=== PATIENT | male | born 1995 | race Caucasian/White ===

== ENCOUNTER 2023-02-13 14:12 | Inpatient (IN) ==
[2023-02-13] MEDS ORDERED: SODIUM CHLORIDE 0.65% NA SOLN 45 ML (OCEAN) PRN (14:54)
[2023-02-13] MEDS ORDERED: ACETAMINOPHEN 325 MG TAB PO PRN (14:54)
[2023-02-13] MEDS ORDERED: hydrOXYzine HCl 25 MG TAB PO PRN (14:54)
[2023-02-13] MEDS ORDERED: ALUMINUM/MAGNESIUM SUSP 30 ML UDC PO PRN (14:54)
[2023-02-13] MEDS ORDERED: MAGNESIUM HYDROXIDE SUSP 30 ML UDC PO PRN (14:54)
[2023-02-13 17:13] LABS: Vitamin D, 25 Hydrox 8.5 ng/ml (30-100)
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
[2023-02-14] MEDS: DULoxetine HCL 30 MG CAP PO SCH (15:27)
[2023-02-14] MEDS: ERGOCALCIFEROL 50,000 UNITS 1250 MCG CAP PO SCH (15:27)
[2023-02-15] MEDS: DULoxetine HCL 30 MG CAP PO SCH (08:34)
--- NOTE | 2023-02-15 11:21 | Psychiatric Progress Note ---
Date of Service February 15, 2023 Impression / Recommendations Impression 27 y/o M with history of depression and chronic suicidal thoughts with recent worsening of suicidality. The more chronic suicidal thoughts have an obsessive quality. They alin trash and mail in their apartment. A current stressor is an impending court date for an unpaid $6,000 credit card balance. They had a failed trial of escitalopram at an unknown dose for 6 months and denies any other medication trials. They didn't find psychotherapy at that same time helpful but is willing to try again. 02/14/2023: Pt reports small mood improvement, which they and I both attribute to being in a safe, structured environment. "Slept better" last night. Reports no new or worse symptoms. Has been participating well in the milieu and groups. Tolerating duloxetine 30 mg started yesterday with 2nd dose this morning with no evidence of adverse effects. They would like to be "fairly aggressive" in titrating to target of 60 mg daily. 02/14/2023: I suspect an SNRI might be more efficacious than an SNRI and discussed a trial of duloxetine with pt, including review of side effects both common (GI, headaches) and uncommon (elevated BP, marked diaphoresis) as well as unpleasant symptoms often seen with abrupt discontinuation. Given the poor sleep and pt's body habitus, I think a sleep evaluation following discharge would be indicated. (1) Major depressive disorder, recurrent, severe without psychotic features: (2) Hoarding behavior: (3) Vitamin D deficiency: Plan 02/15/2023: * continue duloxetine 30 mg daily - anticipate increase to 60 mg soon if tolerated. * continue ergocalciferol 1.25 mg twice a week for 8 weeks, then cholecalciferol 5,000 IU daily for maintenance. Repeat 25-OH vitamin D level after 1 month on maintenance regimen. 02/14/2023: The patient was admitted to the [facility] ([facility] mental health unit) on q15 min checks (behavioral with suicide precautions) for safety. The patient will participate in group, recreational, and milieu therapies and will be offered additional individual and family sessions as clinically appropriate. * duloxetine 30 mg daily - anticipate increase to 60 mg in 2 days if tolerated. * ergocalciferol 1.25 mg twice a week for 8 weeks, then cholecalciferol 5,000 IU daily for maintenance. Repeat 25-OH vitamin D level after 1 month on maintenance regimen. * recommend sleep evaluation following discharge. Inventory Assets Strengths: supportive relationships, has local supports,voluntary, good insight, intelligent employed, Needs: safety and stabilization, medication adjustment, additional coping skills, increased outpatient services Suicide Risk Level Suicide Risk Level: High-Moderate (q15 min suicide checks) Suicide Risk Level Comments: intrusive, repetitive suicidal thoughts with a recent plan of high potential lethality (but to the means for which he does not have access in the hospital) Risk Factors Assessment Male: Yes : Yes Do You Have Access To A Gun?: No (Gave firearms to mother) Mental Health Diagnoses: Yes Previous Attempt: No Family History of Suicide: No Previous Psychiatric Hospitalization: No Protective Factors Assessment Employed: Yes Stable Relationships: Yes Supportive Family: Yes (mother, but not stepfather) Interval History Identifying Information SWETHA COMER is a 27-year-old M who currently lives in an apartment in [facility], has a history of depression, and was admitted on 02/13/23 14:12 on a 201 voluntary commitment for suicidal thoughts. Chief Complaint "My mood is a little bit better". Review of Systems Sleep Information Total Hours of Sleep: 6 Meal Information Percent Meal Consumed - Breakfast: 100 Percent Meal Consumed - Lunch: 100 Percent Meal Consumed - Dinner: 100 Subjective Subjective Patient was seen & assessed and interval progress reviewed in a multidisciplinary team meeting with the treatment team. For details, see the "Impression" section below. Physical Exam Psychiatric Orientation: alert, oriented to person, oriented to place, oriented to time and cooperative Apperance: appropriately dressed, appropriately groomed and appeared stated age Eye Contact: + fair eye contact Motor Behavior: + psychomotor retardation Speech: normal rate/rhythm/volume of speech Affect: + constricted affect Mood: + depressed mood Thought Process: clear/coherent thought process Thought Content: + obsessions and + cognitive distortions Suicidal Thoughts: denies suicidal plan and denies suicidal intent; + reports suicidal thoughts Homicidal Thoughts: denies homicidal thoughts Hallucinations: no auditory hallucinations and no visual hallucinations Cognition: recent memory grossly intact, remote memory grossly intact, attention grossly intact and language grossly intact Estimated Intelligence: average estimated intelligence Insight: + fair insight Judgment: + fair judgement Vital Signs (Past 24 Hours) Last Vital Signs Temp 36.6 C 02/15/23 06:35 Pulse 125 H 02/15/23 06:36 Resp 16 02/15/23 06:35 BP 124/70 02/15/23 06:36 Results & Data ([facility]) Current Inpatient Medications Current Inpatient Medications: Current Inpatient Medications Acetaminophen (Acetaminophen 325 Mg Tab) 650 mg PO Q4H PRN PRN Reason: Headache or Minor Fever Stop: 03/15/23 14:53 Last Admin: 02/14/23 11:30 Dose: 650 mg Al Hydrox/Mg Hydrox/Simethicone (Aluminum/Magnesium Susp 30 Ml Udc) 30 ml PO Q4H PRN PRN Reason: GI Upset Stop: 03/15/23 14:53 Duloxetine HCl (Duloxetine Hcl 30 Mg Cap) 30 mg PO QAM MGAGI Stop: 03/16/23 14:44 Last Admin: 02/15/23 08:34 Dose: 30 mg Ergocalciferol (Ergocalciferol 50,000 Units 1250 Mcg Cap) 50,000 units PO SuTh@0900 MAGGI Stop: 03/16/23 14:44 Last Admin: 02/14/23 15:27 Dose: 50,000 units Hydroxyzine HCl (Hydroxyzine Hcl 25 Mg Tab) 50 mg PO HSZ PRN PRN Reason: Insomnia Stop: 03/15/23 14:53 Hydroxyzine HCl (Hydroxyzine Hcl 25 Mg Tab) 25 mg PO Q4H PRN PRN Reason: Anxiety Stop: 03/15/23 14:53 Magnesium Hydroxide (Magnesium Hydroxide Susp 30 Ml Udc) 30 ml PO DAILY PRN PRN Reason: Constipation Stop: 03/15/23 14:53 Sodium Chloride (Sodium Chloride 0.65% Na Soln 45 Ml ([place])) 1 - 2 sprays NA PRN PRN PRN Reason: Nasal Dryness/Congestion Stop: 03/15/23 14:53 Mental Health & Subst Abuse Tx Psychiatrist Name of Psychiatrist: Rainer Joseph PA-C Psychiatrist's Date Of Appointment With Psychiatric Provider: 02/28/23 Time of Appointment with Psychiatrist: 10:00 AM Psychiatric Appointment Comment: [address] [place] [address] Therapist Name of Therapist: Munira Dalton Therapist's Time of Therapist Appointment: Telehealth Therapy Appointment Comment: Please call to establish therapy services. Post Discharge Appointments Primary Care Physician Name Of Family Doctor/PCP: [facility] - David Castro PA-C Primary Care Date of Future Appointment with PCP: 02/26/23 Time of Appointment with PCP: 10:30 AM Provider Appointment Comment: [address] [place] [address], [place] [id number] Juvenile Corrections Officer Name of Juvenile Corrections Officer: STALIN Crisis Peer Support Phone Number of Juvenile Corrections Officer: [phone] Juvenile Corrections Officer Appointment Comment: A crisis peer will follow-up with you directly.
[2023-02-16] MEDS: DULoxetine HCL 30 MG CAP PO SCH (08:33)
--- NOTE | 2023-02-16 09:00 | Psychiatric Progress Note ---
Date of Service February 16, 2023 Impression / Recommendations Impression 27 y/o who identifies as non-binary individual with history of depression and chronic suicidal thoughts with recent worsening of suicidality. The more chronic suicidal thoughts have an obsessive quality. They alin trash and mail in their apartment. A current stressor is an impending court date for an unpaid $6,000 credit card balance. 02/16/2023: Ongoing depression and anxiety with SI. Reviewed interim progress per Dr. Gregory's notes. Given ongoing GI symptoms with duloxetine will not increase dose yet. Discussed option to consider augmentation with clonidine which they will consider. Provided with Y-BOCS screening to clarify possible role of OCD. (1) Major depressive disorder, recurrent, severe without psychotic features: (2) Hoarding behavior: (3) Vitamin D deficiency: Plan 02/16/2023: Continue current medications and tx plan. 02/15/2023: * continue duloxetine 30 mg daily - anticipate increase to 60 mg soon if tolerated. * continue ergocalciferol 1.25 mg twice a week for 8 weeks, then cholecalciferol 5,000 IU daily for maintenance. Repeat 25-OH vitamin D level after 1 month on maintenance regimen. 02/14/2023: The patient was admitted to the [facility] ([facility] mental health unit) on q15 min checks (behavioral with suicide precautions) for safety. The patient will participate in group, recreational, and milieu therapies and will be o ffered additional individual and family sessions as clinically appropriate. * duloxetine 30 mg daily - anticipate increase to 60 mg in 2 days if tolerated. * ergocalciferol 1.25 mg twice a week for 8 weeks, then cholecalciferol 5,000 IU daily for maintenance. Repeat 25-OH vitamin D level after 1 month on maintenance regimen. * recommend sleep evaluation following discharge. Inventory Assets Strengths: supportive relationships, has local supports,voluntary, good insight, intelligent employed, Needs: safety and stabilization, medication adjustment, additional coping skills, increased outpatient services Suicide Risk Level Suicide Risk Level: High-Moderate (q15 min suicide checks) (severe depression and SI with plan prior to admission but feels safe in the hospital and agrees to let nursing know if they need further support or feel unable to remain safe) Risk Factors Assessment Male: Yes : Yes Do You Have Access To A Gun?: No (Gave firearms to mother) Mental Health Diagnoses: Yes Previous Attempt: No Family History of Suicide: No Previous Psychiatric Hospitalization: No Protective Factors Assessment Employed: Yes Stable Relationships: Yes Supportive Family: Yes (mother, but not stepfather) Interval History Identifying Information SWETHA COMER is a 27-year-old non-binary individual who currently lives in an apartment in [place] alone, has a history of depression, and was admitted on 02/13/23 14:12 on a 201 voluntary commitment for suicidal thoughts. Chief Complaint "I'm pretty queasy". Review of Systems Sleep Information Total Hours of Sleep: 7 Meal Information Percent Meal Consumed - Breakfast: 100 Percent Meal Consumed - Lunch: 75 Percent Meal Consumed - Dinner: 80 Subjective Subjective Patient was seen & assessed and interval progress reviewed with treatment team nursing and social work. Attending groups. Since starting duloxetine having some "queasiness and decreased appetite". Struggles to fall asleep. Still with in termittent SI but feels safe in the hospital. Reviewed ADHD self-report, not convincing for ADHD and symptoms only started in last few years as depression and anxiety worsened. Discussed option to consider clonidine which can help with anxiety and ADHD symptoms, they'll consider this. Discussed option to try Vistaril tonight to help with anxious thoughts and sleep onset insomnia. Physical Exam Psychiatric Orientation: alert and oriented x 3 Apperance: appropriately dressed, appropriately groomed and appeared stated age Eye Contact: + fair eye contact Motor Behavior: + psychomotor retardation Speech: normal rate/rhythm/volume of speech Affect: + constricted affect Mood: + depressed mood Thought Process: clear/coherent thought process Thought Content: + cognitive distortions and reality based without delusions Suicidal Thoughts: denies suicidal plan (none for in the hospital, thoughts of shooting or jumping outside hospital) and denies suicidal intent; + reports suicidal thoughts Homicidal Thoughts: denies homicidal thoughts Hallucinations: no auditory hallucinations and no visual hallucinations Cognition: recent memory grossly intact, remote memory grossly intact, attention grossly intact and language grossly intact Estimated Intelligence: average estimated intelligence Insight: + fair insight Judgment: + limited judgement Vital Signs (Past 24 Hours) Last Vital Signs Temp 37.2 C 02/16/23 06:00 Pulse 90 02/16/23 06:00 Resp 18 02/16/23 06:00 BP 118/69 02/16/23 06:42 Pulse Ox 98 02/16/23 06:00 O2 Del Method Room Air 02/16/23 06:00 Results & Data ([facility]) Current Inpatient Medications Current Inpatient Medications: Current Inpatient Medications Acetaminophen (Acetaminophen 325 Mg Tab) 650 mg PO Q4H PRN PRN Reason: Headache or Minor Fever Stop: 03/15/23 14:53 Last Admin: 02/14/23 11:30 Dose: 650 mg Al Hydrox/Mg Hydrox/Simethicone (Aluminum/Magnesium Susp 30 Ml Udc) 30 ml PO Q4H PRN PRN Reason: GI Upset Stop: 03/15/23 14:53 Duloxetine HCl (Duloxetine Hcl 30 Mg Cap) 30 mg PO QAM [facility] Stop: 03/16/23 14:44 Last Admin: 02/16/23 08:33 Dose: 30 mg Ergocalciferol (Ergocalciferol 50,000 Units 1250 Mcg Cap) 50,000 units PO SuTh@0900 [facility] Stop: 03/16/23 14:44 Last Admin: 02/14/23 15:27 Dose: 50,000 units Hydroxyzine HCl (Hydroxyzine Hcl 25 Mg Tab) 50 mg PO HSZ PRN PRN Reason: Insomnia Stop: 03/15/23 14:53 Hydroxyzine HCl (Hydroxyzine Hcl 25 Mg Tab) 25 mg PO Q4H PRN PRN Reason: Anxiety Stop: 03/15/23 14:53 Magnesium Hydroxide (Magnesium Hydroxide Susp 30 Ml Udc) 30 ml PO DAILY PRN PRN Reason: Constipation Stop: 03/15/23 14:53 Sodium Chloride (Sodium Chloride 0.65% Na Soln 45 Ml ([place])) 1 - 2 sprays NA PRN PRN PRN Reason: Nasal Dryness/Congestion Stop: 03/15/23 14:53 Mental Health & Subst Abuse Tx Psychiatrist Name of Psychiatrist: Rainer Joseph PA-C Psychiatrist's Date Of Appointment With Psychiatric Provider: 02/28/23 Time of Appointment with Psychiatrist: 10:00 AM Psychiatric Appointment Comment: [address] [place] [address] Therapist Name of Therapist: Munira Dalton Therapist's Time of Therapist Appointment: Telehealth Therapy Appointment Comment: Please call to establish therapy services. Post Discharge Appointments Primary Care Physician Name Of Family Doctor/PCP: [facility] - David Castro PA-C Primary Care Date of Future Appointment with PCP: 02/26/23 Time of Appointment with PCP: 10:30 AM Provider Appointment Comment: [place] [id number] Continuity Editor Name of Continuity Editor: STALIN Crisis Peer Support Phone Number of Continuity Editor: [phone] Continuity Editor Appointment Comment: A crisis peer will follow-up with you directly.
[2023-02-16] MEDS: hydrOXYzine HCl 25 MG TAB PO PRN (22:42)
[2023-02-17] MEDS: ERGOCALCIFEROL 50,000 UNITS 1250 MCG CAP PO SCH (08:30)
[2023-02-17] MEDS: DULoxetine HCL 30 MG CAP PO SCH (08:31)
--- NOTE | 2023-02-17 09:11 | Psychiatric Progress Note ---
Date of Service February 17, 2023 Impression / Recommendations Impression 27 y/o who identifies as non-binary individual with history of depression and chronic suicidal thoughts with recent worsening of suicidality. The more chronic suicidal thoughts have an obsessive quality. They alin trash and mail in their apartment. A current stressor is an impending court date for an unpaid $6,000 credit card balance. 02/17/2023: Ongoing depression, anxiety and tearfulness in considering what it will be like to return to their apartment after leaving the hospital. Shame related to items that accumulated in the apartment due to severity of current depressive episode. They would like to start and consented to clonidine for off- label use for anxiety and concentration and for potential benefit with sleep. Discussed medication treatment options in detail. Discussed risks, benefits and alternatives. Reviewed side effects including but not limited to: low BP, syncope, recommendation to change positions slowly. (1) Major depressive disorder, recurrent, severe without psychotic features: (2) JEFFREY (generalized anxiety disorder): (3) Hoarding behavior: (4) Vitamin D deficiency: Plan 02/17/2023: Start clonidine 0.1mg HS, continue duloxetine 30mg daily. 02/16/2023: Continue current medications and tx plan. 02/15/2023: * continue duloxetine 30 mg daily - anticipate increase to 60 mg soon if tolerated. * continue ergocalciferol 1.25 mg twice a week for 8 weeks, then cholecalciferol 5,000 IU daily for maintenance. Repeat 25-OH vitamin D level after 1 month on maintenance regimen. 02/14/2023: The patient was admitted to the [facility] ([facility] mental health unit) on q15 min checks (behavioral with suicide precautions) for safety. The patient will participate in group, recreational, and milieu therapies and will be offer ed additional individual and family sessions as clinically appropriate. * duloxetine 30 mg daily - anticipate increase to 60 mg in 2 days if tolerated. * ergocalciferol 1.25 mg twice a week for 8 weeks, then cholecalciferol 5,000 IU daily for maintenance. Repeat 25-OH vitamin D level after 1 month on maintenance regimen. * recommend sleep evaluation following discharge. Inventory Assets Strengths: supportive relationships, has local supports,voluntary, good insight, intelligent employed, Needs: safety and stabilization, medication adjustment, additional coping skills, increased outpatient services Suicide Risk Level Suicide Risk Level: High-Moderate (q15 min suicide checks) (severe depression and SI with plan prior to admission but feels safe in the hospital and agrees to let nursing know if they need further support or feel unable to remain safe) Suicide Risk Level Comments: intrusive, repetitive suicidal thoughts with a recent plan of high potential lethality (but to the means for which he does not have access in the hospital) Risk Factors Assessment Male: Yes : Yes Do You Have Access To A Gun?: No (Gave firearms to mother) Mental Health Diagnoses: Yes Previous Attempt: No Family History of Suicide: No Previous Psychiatric Hospitalization: No Protective Factors Assessment Employed: Yes Stable Relationships: Yes Supportive Family: Yes (mother, but not stepfather) Interval History Identifying Information SWETHA COMER is a 27-year-old non-binary individual who currently lives in an apartment in [facility], has a history of depression, and was admitted on 02/13/23 14:12 on a 201 voluntary commitment for suicidal thoughts. Chief Complaint "I'm doing ok". Review of Systems Sleep Information Total Hours of Sleep: 6.75 Sleep Comments: Received Vistaril for sleep Meal Information Percent Meal Consumed - Breakfast: 100 Percent Meal Consumed - Lunch: 80 Percent Meal Consumed - Dinner: 100 Subjective Subjective Patient was seen & assessed and interval progress reviewed with treatment team nursing and social work. Took an afternoon nap. More social in the evening, playing a game with peers. Attended community meeting. Got a dose of Maalox yesterday for nausea which helped. Took prn Vistaril for help falling asleep last night which helped with ruminative anxious thoughts but not with falling asleep. Feels their mood is improving a bit here but tearful when discussing fears about returning to their apartment and losing all the progress they've started to make. Discussed the stress and shame they feel from letting garbage pile up in the apartment and that they feel it is a moral failing that they haven't been able to keep up with all the things they try to do each day. Processed how depression can impact motivation, energy, concentration and likely played a major role in this. They do not feel that the items have sentimental value or w ill be difficult to part with just that the process of cleaning up will be overwhelming. Discussed ongoing major stressor of the upcoming financial court hearing and has not yet disclosed this to anyone else for support outside of the hospital. Less GI symptoms today. They are interested in trying clonidine tonight. Physical Exam Psychiatric Orientation: alert and oriented x 3 Apperance: appropriately dressed, appropriately groomed and appeared stated age Eye Contact: + fair eye contact Motor Behavior: + psychomotor retardation Speech: normal rate/rhythm/volume of speech Affect: + depressed affect, + anxious affect and + tearful affect Mood: + depressed mood and + anxious mood Thought Process: clear/coherent thought process Thought Content: + cognitive distortions and reality based without delusions Suicidal Thoughts: denies suicidal plan (none for in the hospital, thoughts of s hooting or jumping outside hospital) and denies suicidal intent; + reports suicidal thoughts Homicidal Thoughts: denies homicidal thoughts Hallucinations: no auditory hallucinations and no visual hallucinations Cognition: recent memory grossly intact, remote memory grossly intact, attention grossly intact and language grossly intact Estimated Intelligence: average estimated intelligence Insight: + fair insight Judgment: + limited judgement Vital Signs (Past 24 Hours) Last Vital Signs Temp 36.7 C 02/17/23 06:00 Pulse 96 H 02/17/23 06:00 Resp 20 02/17/23 06:00 BP 107/70 02/17/23 06:40 Pulse Ox 97 02/17/23 06:00 O2 Del Method Room Air 02/17/23 06:00 Results & Data ([facility]) Current Inpatient Medications Current Inpatient Medications: Current Inpatient Medications Acetaminophen (Acetaminophen 325 Mg Tab) 650 mg PO Q4H PRN PRN Reason: Headache or Minor Fever Stop: 03/15/23 14:53 Last Admin: 02/14/23 11:30 Dose: 650 mg Al Hydrox/Mg Hydrox/Simethicone (Aluminum/Magnesium Susp 30 Ml Udc) 30 ml PO Q4H PRN PRN Reason: GI Upset Stop: 03/15/23 14:53 Last Admin: 02/16/23 11:10 Dose: 30 ml Duloxetine HCl (Duloxetine Hcl 30 Mg Cap) 30 mg PO QAM [facility] Stop: 03/16/23 14:44 Last Admin: 02/17/23 08:31 Dose: 30 mg Ergocalciferol (Ergocalciferol 50,000 Units 1250 Mcg Cap) 50,000 units PO SuTh@0900 [facility] Stop: 03/16/23 14:44 Last Admin: 02/17/23 08:30 Dose: 50,000 units Hydroxyzine HCl (Hydroxyzine Hcl 25 Mg Tab) 50 mg PO HSZ PRN PRN Reason: Insomnia Stop: 03/15/23 14:53 Last Admin: 02/16/23 22:42 Dose: 50 mg Hydroxyzine HCl (Hydroxyzine Hcl 25 Mg Tab) 25 mg PO Q4H PRN PRN Reason: Anxiety Stop: 03/15/23 14:53 Magnesium Hydroxide (Magnesium Hydroxide Susp 30 Ml Udc) 30 ml PO DAILY PRN PRN Reason: Constipation Stop: 03/15/23 14:53 Sodium Chloride (Sodium Chloride 0.65% Na Soln 45 Ml ([place])) 1 - 2 sprays NA PRN PRN PRN Reason: Nasal Dryness/Congestion Stop: 03/15/23 14:53 Mental Health & Subst Abuse Tx Psychiatrist Name of Psychiatrist: Rainer Joseph PA-C Psychiatrist's Date Of Appointment With Psychiatric Provider: 02/28/23 Time of Appointment with Psychiatrist: 10:00 AM Psychiatric Appointment Comment: [facility] [address] [place] [address] Therapist Name of Therapist: Munira Dalton Therapist's Time of Therapist Appointment: Telehealth Therapy Appointment Comment: Please call to establish therapy services. Post Discharge Appointments Primary Care Physician Name Of Family Doctor/PCP: [facility] - David Castro PA-C Primary Care Date of Future Appointment with PCP: 02/26/23 Time of Appointment with PCP: 10:30 AM Provider Appointment Comment: [address] [place], [place] [address] [id number] Stone Belt Sander Name of Stone Belt Sander: STALIN Crisis Peer Support Phone Number of Stone Belt Sander: [phone] Stone Belt Sander Appointment Comment: A crisis peer will follow-up with you directly.
[2023-02-17] MEDS: cloNIDine HCL 0.1 MG TAB PO SCH (21:59)
[2023-02-18] MEDS: DULoxetine HCL 30 MG CAP PO SCH (08:25)
--- NOTE | 2023-02-18 08:48 | Psychiatric Progress Note ---
Date of Service February 18, 2023 Impression / Recommendations Impression 27 y/o who identifies as non-binary individual with history of depression and chronic suicidal thoughts with recent worsening of suicidality. The more chronic suicidal thoughts have an obsessive quality. They alin trash and mail in their apartment. A current stressor is an impending court date for an unpaid $6,000 credit card balance. 02/18/2023: Increased anxiety in setting of planning to contact their [employer] company about the debt but depression improving and sleep improving. Feeling more able to work on things they had been putting off and avoiding such as calling about the debt. Consents to increasing duloxetine today given improvement in GI symptoms to further target depression and anxiety. (1) Major depressive disorder, recurrent, severe without psychotic features: (2) JEFFREY (generalized anxiety disorder): (3) Vitamin D deficiency: Plan 02/18/2023: Increase duloxetine to 60mg daily. Continue clonidine 0.1mg HS. 02/17/2023: Start clonidine 0.1mg HS, continue duloxetine 30mg daily. 02/16/2023: Continue current medications and tx plan. 02/15/2023: * continue duloxetine 30 mg daily - anticipate increase to 60 mg soon if tolerated. * continue ergocalciferol 1.25 mg twice a week for 8 weeks, then cholecalciferol 5,000 IU daily for maintenance. Repeat 25-OH vitamin D level after 1 month on maintenance regimen. 02/14/2023: The patient was admitted to the [facility] ([facility] mental health unit) on q15 min checks (behavioral with suicide precautions) for safety. The patient will participate in group, recreational, and milieu therapies and will be offered additional individual and family sessions as clinically appropriate. * duloxetine 30 mg daily - anticipate increase to 60 mg in 2 days if tolerated. * ergocalciferol 1.25 mg twice a week for 8 weeks, then cholecalciferol 5,000 IU daily for maintenance. Repeat 25-OH vitamin D level after 1 month on maintenance regimen. * recommend sleep evaluation following discharge. Inventory Assets Strengths: supportive relationships, has local supports,voluntary, good insight, intelligent employed, Needs: safety and stabilization, medication adjustment, additional coping skills, increased outpatient services Suicide Risk Level Suicide Risk Level: Moderate (q15 min suicide checks) (severe depression and SI with plan prior to admission but mood improving, denies SI and feels safe in the hospital and agrees to let nursing know if they need further support or feel unable to remain safe) Risk Factors Assessment Male: Yes : Yes Do You Have Access To A Gun?: No (Gave firearms to mother) Mental Health Diagnoses: Yes Previous Attempt: No Family History of Suicide: No Previous Psychiatric Hospitalization: No Protective Factors Assessment Employed: Yes Stable Relationships: Yes Supportive Family: Yes (mother, but not stepfather) Interval History Identifying Information SWETHA COMER is a 27-year-old non-binary individual who currently lives in an apartment in [place] alone, has a history of depression, and was admitted on 02/13/23 14:12 on a 201 voluntary commitment for suicidal thoughts. Chief Complaint "I'm anxious". Review of Systems Sleep Information Total Hours of Sleep: 7 Sleep Comments: Received Vistaril for sleep Meal Information Percent Meal Consumed - Breakfast: 100 Percent Meal Consumed - Lunch: 50 Percent Meal Consumed - Dinner: 50 Subjective Subjective Patient was seen & assessed and interval progress reviewed with treatment team nursing and social work. Got the number for the [employer] yesterday which was a big step in thinking about financial debt. Today plans to call [employer] and then wants to discuss the debt with their mother during the family meeting. Denies SI. Slept better with the addition of clonidine last night and no side effects. No further GI symptoms, agreeable to increasing duloxetine today. Had a good visit with their uncle yesterday. Physical Exam Psychiatric Orientation: alert and oriented x 3 Apperance: appropriately dressed, appropriately groomed and appeared stated age Eye Contact: good eye contact Motor Behavior: no abnormal motor movements Speech: normal rate/rhythm/volume of speech Affect: + anxious affect Mood: + depressed mood and + anxious mood Thought Process: clear/coherent thought process Thought Content: reality based without delusions Suicidal Thoughts: denies suicidal thoughts, denies suicidal plan and denies suicidal intent Homicidal Thoughts: denies homicidal thoughts Hallucinations: no auditory hallucinations and no visual hallucinations Cognition: recent memory grossly intact, remote memory grossly intact, attention grossly intact and language grossly intact Estimated Intelligence: average estimated intelligence Insight: + fair insight Judgment: + fair judgement Vital Signs (Past 24 Hours) Last Vital Signs Temp 36.4 C 02/18/23 06:00 Pulse 90 02/18/23 06:00 Resp 20 06/12/23 06:00 BP 108/73 02/18/23 06:37 Pulse Ox 98 02/18/23 06:00 O2 Del Method Room Air 02/18/23 06:00 Results & Data ([facility]) Current Inpatient Medications Current Inpatient Medications: Current Inpatient Medications Acetaminophen (Acetaminophen 325 Mg Tab) 650 mg PO Q4H PRN PRN Reason: Headache or Minor Fever Stop: 03/15/23 14:53 Last Admin: 02/14/23 11:30 Dose: 650 mg Al Hydrox/Mg Hydrox/Simethicone (Aluminum/Magnesium Susp 30 Ml Udc) 30 ml PO Q4H PRN PRN Reason: GI Upset Stop: 03/15/23 14:53 Last Admin: 02/16/23 11:10 Dose: 30 ml Clonidine HCl (Clonidine Hcl 0.1 Mg Tab) 0.1 mg PO HS [facility] Stop: 03/19/23 21:59 Last Admin: 02/17/23 21:59 Dose: 0.1 mg Duloxetine HCl (Duloxetine Hcl 30 Mg Cap) 30 mg PO QAM [facility] Stop: 03/16/23 14:44 Last Admin: 02/18/23 08:25 Dose: 30 mg Ergocalciferol (Ergocalciferol 50,000 Units 1250 Mcg Cap) 50,000 units PO SuTh@0900 [facility] Stop: 03/16/23 14:44 Last Admin: 02/17/23 08:30 Dose: 50,000 units Hydroxyzine HCl (Hydroxyzine Hcl 25 Mg Tab) 50 mg PO HSZ PRN PRN Reason: Insomnia Stop: 03/15/23 14:53 Last Admin: 02/16/23 22:42 Dose: 50 mg Hydroxyzine HCl (Hydroxyzine Hcl 25 Mg Tab) 25 mg PO Q4H PRN PRN Reason: Anxiety Stop: 03/15/23 14:53 Magnesium Hydroxide (Magnesium Hydroxide Susp 30 Ml Udc) 30 ml PO DAILY PRN PRN Reason: Constipation Stop: 03/15/23 14:53 Sodium Chloride (Sodium Chloride 0.65% Na Soln 45 Ml ([place])) 1 - 2 sprays NA PRN PRN PRN Reason: Nasal Dryness/Congestion Stop: 03/15/23 14:53 Mental Health & Subst Abuse Tx Psychiatrist Name of Psychiatrist: Rainer Quintanas, PA-C Psychiatrist's Date Of Appointment With Psychiatric Provider: 02/28/23 Time of Appointment with Psychiatrist: 10:00 AM Psychiatric Appointment Comment: [address] [place] [address] Therapist Name of Therapist: Munira Dalton Therapist's Time of Therapist Appointment: Telehealth Therapy Appointment Comment: Please call to establish therapy services. Post Discharge Appointments Primary Care Physician Name Of Family Doctor/PCP: [facility] - David Castro PA-C Primary Care Date of Future Appointment with PCP: 02/26/23 Time of Appointment with PCP: 10:30 AM Provider Appointment Comment: [address] [place], [place] [address] [address] Hull Builder Name of Hull Builder: STALIN Crisis Peer Support Phone Number of Hull Builder: [phone] Hull Builder Appointment Comment: A crisis peer will follow-up with you directly.
[2023-02-18] MEDS ORDERED: DULoxetine HCL 30 MG CAP PO ONE (12:00)
[2023-02-18] MEDS: cloNIDine HCL 0.1 MG TAB PO SCH (21:53)
[2023-02-19] MEDS: hydrOXYzine HCl 25 MG TAB PO PRN ×2 (00:04→20:59)
[2023-02-19] MEDS: DULoxetine HCL 60 MG CAP PO SCH (08:35)
--- NOTE | 2023-02-19 08:46 | Psychiatric Progress Note ---
Date of Service February 19, 2023 Impression / Recommendations Impression 27 y/o who identifies as non-binary individual with history of depression and chronic suicidal thoughts with recent worsening of suicidality. The more chronic suicidal thoughts have an obsessive quality. They alin trash and mail in their apartment. A current stressor is an impending court date for an unpaid $6,000 credit card balance. 02/19/2023: Mood improving, still with some nausea with higher dose of duloxeti ne, will continue to monitor to ensure they will be able to continue to tolerate this medication. Feeling more hopeful and motivated overall. (1) Major depressive disorder, recurrent, severe without psychotic features: (2) JEFFREY (generalized anxiety disorder): (3) Vitamin D deficiency: Plan 02/19/2023: Continue with current medications and tx plan. 02/18/2023: Increase duloxetine to 60mg daily. Continue clonidine 0.1mg HS. 02/17/2023: Start clonidine 0.1mg HS, continue duloxetine 30mg daily. 02/16/2023: Continue current medications and tx plan. 02/15/2023: * continue duloxetine 30 mg daily - anticipate increase to 60 mg soon if tolerated. * continue ergocalciferol 1.25 mg twice a week for 8 weeks, then cholecalciferol 5,000 IU daily for maintenance. Repeat 25-OH vitamin D level after 1 month on maintenance regimen. 02/14/2023: The patient was admitted to the [facility] ([facility]) on q15 min checks (behavioral with suicide precautions) for safety. The patient will participate in group, recreational, and milieu therapies and will be offered additional individual and family sessions as clinically appropriate. * duloxetine 30 mg daily - anticipate increase to 60 mg in 2 days if tolerated. * ergocalciferol 1.25 mg twice a week for 8 weeks, then cholecalciferol 5,000 IU daily for maintenance. Repeat 25-OH vitamin D level after 1 month on maintenance regimen. * recommend sleep evaluation following discharge. Inventory Assets Strengths: supportive relationships, has local supports,voluntary, good insight, intelligent employed, Needs: safety and stabilization, medication adjustment, additional coping skills, increased outpatient services Suicide Risk Level Suicide Risk Level: Moderate (q15 min suicide checks) (severe depression and SI with plan prior to admission but mood improving, denies SI and feels safe in the hospital and agrees to let nursing know if they need further support or feel unable to remain safe) Risk Factors Assessment Male: Yes : Yes Do You Have Access To A Gun?: No (Gave firearms to mother) Mental Health Diagnoses: Yes Previous Attempt: No Family History of Suicide: No Previous Psychiatric Hospitalization: No Protective Factors Assessment Employed: Yes Stable Relationships: Yes Supportive Family: Yes (mother, but not stepfather) Interval History Identifying Information SWETHA COMER is a 27-year-old non-binary individual who currently lives in an apartment in [place] alone, has a history of depression, and was admitted on 02/13/23 14:12 on a 201 voluntary commitment for suicidal thoughts. Chief Complaint "I'm doing good". Review of Systems Sleep Information Total Hours of Sleep: 5.5 Sleep Comments: Received Vistaril for sleep Meal Information Percent Meal Consumed - Breakfast: 100 Percent Meal Consumed - Lunch: 100 Percent Meal Consumed - Dinner: 85 Subjective Subjective Patient was seen & assessed and interval progress reviewed with treatment team nursing and social work. After calling the [employer] yesterday they were able to be put on a payment plan and the court date was cancelled which has been a huge relief. Last night found they were able to think more positively about the future and what life in their apartment will feel like once they can start decluttering. Feeling more motivation today. Having some mild nausea from higher dose of duloxetine but feels this is manageable and wants to continue with current dose. Physical Exam Psychiatric Orientation: alert and oriented x 3 Apperance: appropriately dressed, appropriately groomed and appeared stated age Eye Contact: good eye contact Motor Behavior: no abnormal motor movements Speech: normal rate/rhythm/volume of speech Affect: + anxious affect Mood: + depressed mood and + anxious mood Thought Process: clear/coherent thought process Thought Content: reality based without delusions Suicidal Thoughts: denies suicidal thoughts, denies suicidal plan and denies suicidal intent Homicidal Thoughts: denies homicidal thoughts Hallucinations: no auditory hallucinations and no visual hallucinations Cognition: recent memory grossly intact, remote memory grossly intact, attention grossly intact and language grossly intact Estimated Intelligence: average estimated intelligence Insight: + fair insight Judgment: + fair judgement Vital Signs (Past 24 Hours) Last Vital Signs Temp 36.5 C 02/19/23 06:36 Pulse 106 H 02/19/23 06:37 Resp 16 02/19/23 06:36 BP 128/88 02/19/23 06:37 Pulse Ox 98 02/18/23 06:00 O2 Del Method Room Air 02/18/23 06:00 Results & Data ([facility]) Current Inpatient Medications Current Inpatient Medications: Current Inpatient Medications Acetaminophen (Acetaminophen 325 Mg Tab) 650 mg PO Q4H PRN PRN Reason: Headache or Minor Fever Stop: 03/15/23 14:53 Last Admin: 02/14/23 11:30 Dose: 650 mg Al Hydrox/Mg Hydrox/Simethicone (Aluminum/Magnesium Susp 30 Ml Udc) 30 ml PO Q4H PRN PRN Reason: GI Upset Stop: 03/15/23 14:53 Last Admin: 02/16/23 11:10 Dose: 30 ml Clonidine HCl (Clonidine Hcl 0.1 Mg Tab) 0.1 mg PO HS MAGGI Stop: 03/19/23 21:59 Last Admin: 02/18/23 21:53 Dose: 0.1 mg Duloxetine HCl (Duloxetine Hcl 60 Mg Cap) 60 mg PO QAM MAGGI Stop: 03/21/23 08:59 Last Admin: 02/19/23 08:35 Dose: 60 mg Ergocalciferol (Ergocalciferol 50,000 Units 1250 Mcg Cap) 50,000 units PO SuTh@0900 MAGGI Stop: 03/16/23 14:44 Last Admin: 02/17/23 08:30 Dose: 50,000 units Hydroxyzine HCl (Hydroxyzine Hcl 25 Mg Tab) 50 mg PO HSZ PRN PRN Reason: Insomnia Stop: 03/15/23 14:53 Last Admin: 02/19/23 00:04 Dose: 50 mg Hydroxyzine HCl (Hydroxyzine Hcl 25 Mg Tab) 25 mg PO Q4H PRN PRN Reason: Anxiety Stop: 03/15/23 14:53 Magnesium Hydroxide (Magnesium Hydroxide Susp 30 Ml Udc) 30 ml PO DAILY PRN PRN Reason: Constipation Stop: 03/15/23 14:53 Sodium Chloride (Sodium Chloride 0.65% Na Soln 45 Ml (Boundary)) 1 - 2 sprays NA PRN PRN PRN Reason: Nasal Dryness/Congestion Stop: 03/15/23 14:53 Mental Health & Subst Abuse Tx Psychiatrist Name of Psychiatrist: [facility] - Rahel Joseph PA-C Psychiatrist's Date Of Appointment With Psychiatric Provider: 02/28/23 Time of Appointment with Psychiatrist: 10:00 AM Psychiatric Appointment Comment: [address] [place] [address] Therapist Name of Therapist: Munira Dalton Therapist's Time of Therapist Appointment: Telehealth Therapy Appointment Comment: Please call to establish therapy services. Advanced Manufacturing Engineer Name of Advanced Manufacturing Engineer: [employer] Service [employer] Phone Number for Advanced Manufacturing Engineer: [phone] Case Management Appointment Comment: A blended skilled nursing case manager will follow-up with you directly. Post Discharge Appointments Primary Care Physician Name Of Family Doctor/PCP: [facility] - David Castro PA-C Primary Care Date of Future Appointment with PCP: 02/26/23 Time of Appointment with PCP: 10:30 AM Provider Appointment Comment: [address] [place] [address], [place] [phone] Revenue Cycle Administrator Name of Revenue Cycle Administrator: [facility] Crisis Peer Support Phone Number of Revenue Cycle Administrator: [phone] Revenue Cycle Administrator Appointment Comment: A crisis peer will follow-up with you directly. Contact Information Discharge Discharge [address]: [address] [place] [address] [place] [phone]
[2023-02-19] MEDS: cloNIDine HCL 0.1 MG TAB PO SCH (20:59)
[2023-02-20] MEDS: DULoxetine HCL 60 MG CAP PO SCH (08:34)
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
== END 2023-02-20 13:12 | disposition home or self-care (01) | DRG 885 ==
LOC: 3S 14:12 → SUATTDRO 14:12

== ENCOUNTER 2025-05-15 15:34 | Inpatient (IN) ==
--- NOTE | 2025-05-15 15:59 | Emergency Department Note ---
Impression & Plan Symptomatic anemia, Headache, Shortness of breath ED Provider Note NAME: SWETHA COMER AGE: 30 SEX: M : 1995 ARRIVES VIA: Walk-In INFORMANT: Patient ED PROVIDER(S): Rosalio Albarran DO CHIEF COMPLAINT: Anxiety and depression HPI: Patient is a 30-year-old male who presents to the ER for symptoms that started 3 to 4 days ago. He notes he has noticed an increase heart rate and dark urine. He is felt lightheaded with changing positions. He feels short of breath as well. He also gets a headache which comes and goes when he is exerting himself and changing positions. He denies any chest pain. No belly pain. No nausea, vomiting, or diarrhea. No dysuria, urgency, or frequency. No other exacerbating or remitting factors. Patient denies diabetes, hypertension, hyperlipidemia, CAD, history of sudden at a young age, and smoking. Patient denies swelling of calves, recent trips, history of immobilization or recent surgery, prior history of DVT, hemoptysis, and history of malignancy. ADDITIONAL HISTORY OBTAINED: Per HPI Chronic Medical/Social Conditions Affecting Care: Per HPI PAST MEDICAL HISTORY:See Below PAST SURGICAL HISTORY:See Below FAMILY HISTORY:See Below SOCIAL HISTORY:See Below HOME MEDICATIONS:See Below ALLERGIES:See Below VITALS:See Below PHYSICAL EXAMINATION: GENERAL: Sitting up in bed, alert, well appearing, well nourished, no distress, non-toxic EYE EXAM: normal conjunctiva. OROPHARYNX: mucous membranes are moist NECK: supple, no nuchal rigidity, no adenopathy, non-tender LUNGS: Clear to auscultation. Normal chest wall mechanics HEART: no murmurs, S1 normal and S2 normal ABDOMEN: abdomen soft, non-tender, normo-active bowel sounds, no masses, no rebound or guarding. BACK: Back is symmetrical on inspection and there is no deformity, no midline tenderness, no CVA tenderness. SKIN: no rashes and no bruising UPPER EXTREMITIES: upper extremities are grossly normal. LOWER EXTREMITIES: No pitting edema. NEURO EXAM: Normal sensorium, cranial nerves II-XII grossly intact, normal speech, no gross weakness of arms, no gross weakness of legs. MEDICAL DECISION MAKING: Patient is a 30-year-old male who presents ER for feeling his heart rate being elevated in combination with shortness of breath, dark urine and a headache. IV was established and blood work was obtained. Patient was found to be tachycardic with heart rate in the 140s. He was given IV fluids. Labs showed no significant leukocytosis. Significant anemia at 6.8 and this was repeated and confirmed as it was 6.9. INR unremarkable. D-dimer was negative. BMP with a mild hypokalemia at 3.4. Mag was low at 1.5. LFTs bilirubin was unremarkable. Troponin negative. Patient was typed and crossed and ordered for 2 units of PRBCs while in the ER. Rectal was heme-negative. Discussed case with hospitalist Dr. Manning for further evaluation management treatment. Consults/Care Managements Discussions: Per [facility] Triage Nursing notes reviewed. Limited review of prior medical records performed Vital Signs: reviewed and remarkable for HTN and tachy Differential diagnosis: Infection, dehydration, metabolic abnormality, hypo/hyperglycemia, electrolyte disturbance, anemia, hypoxia, cardiac sources, intracerebral event, toxicologic, neurologic, as well as other pathologies. ER treatment provided: See below Diagnostics interpreted by me include EKG and cardiac monitoring as listed below: -Cardiac Monitoring: An order was placed for continuous cardiac monitoring. The monitor shows a rate of 130 with sinus rhythm. -ECG: Sinus tachycardia rate of 129 Normal axis No PVCs Nonspecific ST wave changes in the inferior leads QTc 436 -Laboratory studies:Interpreted by me as stated above in MDM and shown below. Imaging studies: Xrays: As interpreted by me: Portable AP upright 1 view of the chest shows no focal infiltrate CTs show: CT head was negative per radiology Procedures:none Critical Care: I have personally spent 33 minutes of critical care time in the direct management of this patient. This includes bedside care, interpretation of diagnostic studies, and testing, discussion with consultants, patient, and family members, and other required patient management activities. This 33 minutes is in excess of all separately billable procedures. Past Med/Surg History Problem List (Updated 05/15/25 @ 17:16 by Rosalio Albarran DO) Shortness of breath (Acute) Headache (Acute) Symptomatic anemia (Acute) JEFFREY (generalized anxiety disorder) Major depressive disorder, recurrent, severe without psychotic features Vitamin D deficiency Medical History (Updated 05/15/25 @ 17:16 by Rosalio Albarran DO) Suicidal ideations Depression Idiopathic thrombocytopenic purpura (03/29/11) Surgical History Hx of removal of cyst Posterior to ear. Social History Smoking Status: Current every day smoker Preferred Language: Frisian Communication Ability: Effective Clam Bed Laborer Required: No Beliefs That Will Affect Care: None Feels Safe at Home: Yes Gender Identity: Nonbinary Assistive Devices: None Allergies Allergies Allergy/AdvReac Type Severity Reaction Status Date / Time NSAIDS (Non-Steroidal AdvReac NO NSAIDS Verified 10/28/21 23:06 Anti-Inflamma PER [id number] ADM-DR BECERRA (ITP) aspirin (thrombocytopenia) AdvReac platelet Uncoded 10/28/21 23:06 function suppression Home Meds Home Medications Medication Instructions Recorded Confirmed duloxetine 30 mg capsule,delayed 30 mg PO HS 05/15/25 05/15/25 release duloxetine 60 mg capsule,delayed 60 mg PO HS 05/15/25 05/15/25 release trazodone 50 mg tablet 100 mg PO HS 05/15/25 05/15/25 Results & Data (ED) Vital Signs Vital Signs - 24 hr 05/15/25 15:35 05/15/25 16:44 05/15/25 16:44 Temperature 36.9 C Temperature Source Temporal Artery Scan Pulse Rate 143 H Pulse Rate [Apical] 126 H Pulse Rhythm Regular Pulse Strength Normal Respiratory Rate 20 29 H Respiratory Effort / Characteristics Non-Labored Spontaneous Non-Labored Spontaneous Respiratory Depth Normal Normal Respiratory Pattern Regular Blood Pressure 161/90 H Blood Pressure [Right Arm] 156/113 H Blood Pressure Mean 113 Blood Pressure Mean [Right Arm] 127 Pulse Oximetry 100 100 100 Oxygen Delivery Method Room Air Room Air Room Air Sepsis Recent Fever Within 48 Hours No Sepsis New/Unexplained Change in Mental Status N/A Sepsis Action Taken by Nursing No Action Required 05/15/25 16:45 Temperature Temperature Source Pulse Rate 124 H Pulse Rate [Apical] Pulse Rhythm Pulse Strength Respiratory Rate Respiratory Effort / Characteristics Respiratory Depth Respiratory Pattern Blood Pressure Blood Pressure [Right Arm] Blood Pressure Mean Blood Pressure Mean [Right Arm] Pulse Oximetry Oxygen Delivery Method Sepsis Recent Fever Within 48 Hours Sepsis New/Unexplained Change in Mental Status Sepsis Action Taken by Nursing Laboratory Data 05/15/25 16:31 05/15/25 15:57 Lab Results 05/15/25 05/15/25 05/15/25 Range/Units 15:57 16:22 16:31 WBC 11.36 H (4.8-10.8) K/ul RBC 2.39 L (4.70-6.10) M/uL Hgb 6.8 L* 6.9 L* (14.0-18.0) g/dl POC Hgb 6.5 L* (14.0-18.0) g/dl Hct 20.2 L* (42.0-52.0) % POC Hct 19 L* (42-52) % MCV 84.5 (80.0-100.0) fL MCH 28.5 (25.0-34.0) pg MCHC 33.7 (32.0-36.0) g/dL RDW Std Deviation 47.5 H (36.4-46.3) fL RDW Coeff of Natali 16.1 H (11.5-14.5) % Plt Count 284 (130-400) K/uL MPV 8.9 L (9.4-12.4) fL Immature Gran % (Auto) 2.7 % Neut % (Auto) 73.2 % Lymph % (Auto) 17.4 % [place] % (Auto) 5.5 % Eos % (Auto) 0.9 % Baso % (Auto) 0.3 % Reticulocyte % (Auto) 5.39 H (0.50-2.00) % Neut # (Auto) 8.32 H (1.40-6.50) K/uL Lymph # (Auto) 1.98 (1.20-3.40) K/uL [place] # (Auto) 0.62 H (0.11-0.59) K/uL Eos # (Auto) 0.10 (0.00-0.50) K/uL Baso # (Auto) 0.03 (0.00-0.20) K/uL Reticulocyte # 0.130 H (0.020-0.100) 10^6/uL Immature Gran # (Auto) 0.31 H (0.01-0.20) K/uL Absolute Nucleated RBC 0.03 (0.00-0.12) K/uL Nucleated RBC % (auto) 0.3 % Polychromasia 1+ PT 11.4 (9.0-12.0) Seconds INR 1.1 (0.9-1.1) APTT 22 (21-31) Seconds PTT Ratio 0.8 D-Dimer 500 (0-500) ug/L FEU POC Sodium 135 (135-144) mmol/L Sodium 133 L (136-145) mmol/L POC Potassium 3.4 (3.3-5.0) mmol/L Potassium 3.4 L (3.5-5.1) mmol/L POC Chloride 100 L (101-112) mmol/L Chloride 101 (98-107) mmol/L Carbon Dioxide 24 (21-32) mmol/L POC Total CO2 21 L (24-31) mmol/L Anion Gap 8 (3-11) POC Anion Gap 19.0 (16-25) mmol/L POC BUN 18 (7-18) mg/dl BUN 19 (6-23) mg/dl Creatinine 0.79 (0.6-1.4) mg/dl POC Creatinine 0.8 (0.6-1.3) mg/dl Est Cr Clr Drug Dosing 190.7 ml/min eGFR 124.10 BUN/Creatinine Ratio 24.1 H (10-20) Glucose 112 H (70-99(Fasting)) mg/dl POC Glucose (other) 108 H (70-99) mg/dl Calcium 9.0 (8.6-10.3) mg/dl POC Ioniz Calcium Joaquin 1.14 (1.12-1.32) mmol/l Magnesium 1.5 L (1.7-2.4) mg/dl Iron 233 H (35-175) mcg/dl TIBC 382 (250-450) mcg/dl Transferrin 273 (200-360) mg/dl Transferrin % Sat 61 H (20-50) % Total Bilirubin 6.9 H (0.2-1.0) mg/dl AST 32 (13-39) U/L ALT 39 (7-52) U/L Alkaline Phosphatase 69 (34-104) U/L Lactate Dehydrogenase 449 H (86-244) U/L Total Creatine Kinase 45 (30-223) U/L Troponin I High Sens 11.8 (0-20) pg/ml Total Protein 7.2 (6.0-8.3) gm/dl Albumin 4.1 (3.4-5.0) gm/dl Globulin 3.1 (2.5-4.0) gm/dl Albumin/Globulin Ratio 1.3 (0.9-2) Crossmatch See Detail Administered Medications Sodium Chloride (Nss) 1,000 mls @ 999 mls/hr IV .Q1H1M MAGGI Stop: 05/15/25 18:00 Last Admin: 05/15/25 16:10 Dose: 999 mls/hr Documented By: MUSHT[facility] Imaging Data Radiologist's Impression: Chest X-Ray 05/15/25 15:40 Chest radiograph, one view History: Chest pain Comparison: None Findings: Single AP view of the chest performed. No focal consolidation or pleural effusion. No pneumothorax. The cardiomediastinal silhouette is within normal limits. Normal pulmonary vascularity. No evidence for lymphadenopathy. No visualized bony or soft tissue abnormality. Impression: Normal chest radiograph Electronically signed by Bassam Morley 05-15-2025 4:[address] 05/15/25 15:54 CT head without contrast History: Headache Comparison: None Technique: Using multidetector thin collimation helical acquisition technique, axial, coronal and sagittal CT images from the skull base to the vertex were obtained without intravenous contrast. Dose reduction techniques were achieved by using automatic exposure control and/or adjustment of mA and/or kV according to patient size and/or use of iterative reconstruction technique. Findings: No intracranial hemorrhage, mass-effect, or midline shift. The ventricles are proportionate to the cerebral sulci. The rosa to white matter differentiation of the cerebral hemispheres is preserved. The basal cisterns are patent. The visualized paranasal sinuses are clear. Mastoid air cells are clear. Impression: No acute intracranial pathology. Electronically signed by Bassam Morley 05-15-2025 4:41 PM Discharge Plan Visit Data Chief Complaint: Headache Stated Complaint: HEADACHE,DARK URINE, EXHAUSTION, DIZZY, HIGH PULSE ED Provider: Rosalio Albarran Discharge Problem: Symptomatic anemia, Headache, Shortness of breath Condition: Serious Forms Stand Alone Forms: [facility] [facility] Prescriptions Prescriptions: No Action trazodone 50 mg tablet 100 mg PO HS duloxetine 30 mg capsule,delayed release(DR/EC) 30 mg PO HS duloxetine 60 mg capsule,delayed release(DR/EC) 60 mg PO HS Referrals Referrals: PCP,NO [Physician] - Discharge Problem: Headache Qualifiers: Headache type: unspecified Headache chronicity pattern: unspecified pattern I ntractability: not intractable Qualified Code(s): R51.9 - Headache, unspecified
[2025-05-15] MEDS: SODIUM CHLORIDE 0.9% 1,000 ML IV SCH (16:10)
[2025-05-15 16:15] LABS: Hematocrit (blood only) 20.2 % (42.0-52.0); Hemoglobin 6.8 g/dl (14.0-18.0); Mean Corpuscular Hemoglobin 28.5 pg (25.0-34.0); Mean Corpuscular Volume 84.5 fL (80.0-100.0); Platelet Count 284 K/uL (130-400); RDW Standard Deviation 47.5 fL (36.4-46.3); Red Blood Count 2.39 M/uL (4.70-6.10); White Blood Count 11.36 K/ul (4.8-10.8)
[2025-05-15] MEDS ORDERED: SODIUM CHLORIDE 0.9% 100 ML IV PRN (16:15)
[2025-05-15 16:29] LABS: Alanine Aminotransferase 39.0 U/L (7-52); Albumin Globulin Ratio 1.3 (0.9-2); Alkaline Phosphatase 69.0 U/L (34-104); Anion Gap 8.0 (3-11); Bilirubin,Total 6.9 mg/dl (0.2-1.0); Blood Urea Nitrogen 19.0 mg/dl (6-23); Calcium 9.0 mg/dl (8.6-10.3); Carbon Dioxide 24.0 mmol/L (21-32); Chloride 101.0 mmol/L (98-107); Creatine Kinase 45.0 U/L (30-223); Creatinine Clr Calc Pharmacy 190.7 ml/min; Globulin 3.1 gm/dl (2.5-4.0); Glucose 112.0 mg/dl (70-99(Fasting)); Immature Granulocytes # (auto) 0.31 K/uL (0.01-0.20); Immature Granulocytes % (auto) 2.7 %; Magnesium 1.5 mg/dl (1.7-2.4); Polychromasia 1+; Potassium 3.4 mmol/L (3.5-5.1); Sodium 133.0 mmol/L (136-145); Total Protein 7.2 gm/dl (6.0-8.3)
--- NOTE | 2025-05-15 16:29 | XRay Report ---
Chest radiograph, one view History: Chest pain Comparison: None Findings: Single AP view of the chest performed. No focal consolidation or pleural effusion. No pneumothorax. The cardiomediastinal silhouette is within normal limits. Normal pulmonary vascularity. No evidence for lymphadenopathy. No visualized bony or soft tissue abnormality. Impression: Normal chest radiograph Electronically signed by Bassam Morley 05-15-2025 4:28 PM
[2025-05-15 16:41] LABS: INR 1.1 (0.9-1.1); Partial Thromboplastin Time 22 Seconds (21-31); Prothrombin Time 11.4 Seconds (9.0-12.0)
--- NOTE | 2025-05-15 16:42 | CT Scan Report ---
CT head without contrast History: Headache Comparison: None Technique: Using multidetector thin collimation helical acquisition technique, axial, coronal and sagittal CT images from the skull base to the vertex were obtained without intravenous contrast. Dose reduction techniques were achieved by using automatic exposure control and/or adjustment of mA and/or kV according to patient size and/or use of iterative reconstruction technique. Findings: No intracranial hemorrhage, mass-effect, or midline shift. The ventricles are proportionate to the cerebral sulci. The rosa to white matter differentiation of the cerebral hemispheres is preserved. The basal cisterns are patent. The visualized paranasal sinuses are clear. Mastoid air cells are clear. Impression: No acute intracranial pathology. Electronically signed by Bassam Morley 05-15-2025 4:41 PM
[2025-05-15 16:55] LABS: Reticulocytes # 0.130 10^6/uL (0.020-0.100)
--- NOTE | 2025-05-15 16:56 | History & Physical Report ---
Date of Service May 15, 2025 Assessment & Plan (1) Symptomatic anemia: (2) Autoimmune hemolytic anemia: (3) JEFFREY (generalized anxiety disorder): (4) Major depressive disorder, recurrent, severe without psychotic features: Plan 30 year old male presents to the ER with fatigue, dizziness, dark urine, headache and found to have hemoglobin 6.8 from prior 14.1 in February 2023 Autoimmune hemolytic symptomatic anemia Given significant symptoms recommend transfusing 1 unit of packed RBC and re- evaluating tomorrow, blood will have to come from [place] therefore might take a while to get this Bilirubin and LDH elevated, haptoglobin ordered as send out test, peripheral smear pending, direct Eileen pending Start treatment with Solu-Medrol 100mg IV daily, gastric prophylaxis with pantoprazole 40mg PO daily Consult hematology - discussed with Dr Chow on admission Although he has been having significant amount of heartburn he denies any melena, fecal occult blood is negative and transferrin sats normal therefore do not suspect any significant amount of GI bleed Generalized anxiety disorder / depression Continue duloxetine and trazodone VTE Prophylaxis - encourage ambulation Disposition - admit to med/tele Admission and Anticipated Discharge Date Admission Date: May 15, 2025 History of Present Illness Chief Complaint: Headache, fatigue, dizziness Primary Care Provider: David Castro PA-C Shahzad Simons is a 30 year old male who presents to the ER with headache, fatigue, dizziness, tachycardia (palpitations) and dark urine for the last 3 days. Worse on exertion. No chest pain. In the ER hemoglobin was noted to be 6.8. He denies donating blood. No history of anemia or anemia problems run in the family. No change in bowel movements, belching, flatulence, abdominal pain, nausea, vomiting, melena or hematochezia. He reports decreased appetite for the last month which he puts down to when he started on Ritalin in mid February and his appetite never recovered (eating approximately 30-40% less). He uses ibuprofen 2-3 times a wekk when he gets a headache. Not recently increased use of this. He notes pretty bad heartburn for as long as he can remember and takes x2 daryl whenever he has heartburn 3-4 times a week. He has noticed his urine darker than usual but dark yellow orange without any yoan blood. No hemoptysis, hematemesis or external bleeding noted. 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 Allergies Allergy/AdvReac Type Severity Reaction Status Date / Time NSAIDS (Non-Steroidal AdvReac NO NSAIDS Verified 10/28/21 23:06 Anti-Inflamma PER [id number] ADM-DR BECERRA (ITP) aspirin (thrombocytopenia) AdvReac platelet Uncoded 10/28/21 23:06 function suppression Home Medications Medication Instructions Recorded Confirmed Type duloxetine 30 mg capsule,delayed 30 mg PO HS 05/15/25 05/15/25 History release duloxetine 60 mg capsule,delayed 60 mg PO HS 05/15/25 05/15/25 History release trazodone 50 mg tablet 100 mg PO HS 05/15/25 05/15/25 History Past Med/Surg History Problem List (Updated 05/15/25 @ 17:40 by Omar Manning MD) Autoimmune hemolytic anemia Shortness of breath (Acute) Headache (Acute) Symptomatic anemia (Acute) JEFFREY (generalized anxiety disorder) Major depressive disorder, recurrent, severe without psychotic features Vitamin D deficiency Medical History (Updated 05/15/25 @ 17:40 by Omar Manning MD) Suicidal ideations Depression Idiopathic thrombocytopenic purpura (03/29/11) Surgical History Hx of removal of cyst Posterior to ear. Social History Smoking Status: Never smoker Do You Dip or Chew Tobacco: No; Hx Alcohol Use: Yes (Pt. drank prior to arrival this afternoon 05/15/25) Alcohol type: beer Hx Substance Use: Yes (Pt. has medical marijuana card) Last Used Substance: Just Prior to Arrival Preferred Language: Portuguese Communication Ability: Effective Agronomy Specialist Required: No Beliefs That Will Affect Care: None Current Living Situation: Alone Current Living Situation Comment: Pt. lives in apartment alone Other Information That Helps Us Care for You: No Feels Safe at Home: Yes Safety Concerns: Feels Safe At This Time Gender Identity: Nonbinary Assistive Devices: None Review of Systems Review of Systems: All systems reviewed & are unremarkable except as noted in HPI & below Occasional rashes under breast and under arms Physical Exam Constitutional: well developed and + morbidly obese; no acute distress ENMT: external ear and nose normal, oropharynx normal Respiratory: normal respiratory effort, lungs clear to auscultation Cardiovascular: Rate/Rhythm: regular rhythm and + tachycardic Heart Sounds: no murmur Extremities: normal capillary refill; no calf tenderness Gastrointestinal (Abdomen): Inspection/Auscultation: abdomen normal to inspection; abdomen not distended Percussion/Palpation: abdomen soft; abdomen nontender, no guarding and abdomen not rigid Skin: no rashes, warm and dry Neurologic: moves all extremities and awake; not confused Psychiatric: A+Ox3, euthymic affect Results & Data Results & Data Vital Signs (Past 12 Hours) Vital Signs Temp Pulse Pulse Resp BP BP Pulse Ox 05/15/25 16:45 124 H 05/15/25 16:44 100 05/15/25 16:44 126 H 29 H 156/113 H 100 05/15/25 15:35 36.9 C 143 H 20 161/90 H 100 O2 Del Method 05/15/25 16:45 05/15/25 16:44 Room Air 05/15/25 16:44 Room Air 05/15/25 15:35 Room Air Laboratory Results Abnormal lab results 05/15/25 05/15/25 05/15/25 Range/Units 15:57 16:22 16:31 WBC 11.36 H (4.8-10.8) K/ul RBC 2.39 L (4.70-6.10) M/uL Hgb 6.8 L* 6.9 L* (14.0-18.0) g/dl POC Hgb 6.5 L* (14.0-18.0) g/dl Hct 20.2 L* (42.0-52.0) % POC Hct 19 L* (42-52) % RDW Std Deviation 47.5 H (36.4-46.3) fL RDW Coeff of Natali 16.1 H (11.5-14.5) % MPV 8.9 L (9.4-12.4) fL Reticulocyte % (Auto) 5.39 H (0.50-2.00) % Neut # (Auto) 8.32 H (1.40-6.50) K/uL [place] # (Auto) 0.62 H (0.11-0.59) K/uL Reticulocyte # 0.130 H (0.020-0.100) 10^6/uL Immature Gran # (Auto) 0.31 H (0.01-0.20) K/uL Sodium 133 L (136-145) mmol/L Potassium 3.4 L (3.5-5.1) mmol/L POC Chloride 100 L (101-112) mmol/L POC Total CO2 21 L (24-31) mmol/L BUN/Creatinine Ratio 24.1 H (10-20) Glucose 112 H (70-99(Fasting)) mg/dl POC Glucose (other) 108 H (70-99) mg/dl Magnesium 1.5 L (1.7-2.4) mg/dl Iron 233 H (35-175) mcg/dl Transferrin % Sat 61 H (20-50) % Ferritin 849.6 H (8-388) ng/ml Total Bilirubin 6.9 H (0.2-1.0) mg/dl Lactate Dehydrogenase 449 H (86-244) U/L Crossmatch See Detail Diagnostic Findings CT head without contrast History: Headache Comparison: None Technique: Using multidetector thin collimation helical acquisition technique, axial, coronal and sagittal CT images from the skull base to the vertex were obtained without intravenous contrast. Dose reduction techniques were achieved by using automatic exposure control and/or adjustment of mA and/or kV according to patient size and/or use of iterative reconstruction technique. Findings: No intracranial hemorrhage, mass-effect, or midline shift. The ventricles are proportionate to the cerebral sulci. The rosa to white matter differentiation of the cerebral hemispheres is preserved. The basal cisterns are patent. The visualized paranasal sinuses are clear. Mastoid air cells are clear. Impression: No acute intracranial pathology. Chest radiograph, one view History: Chest pain Comparison: None Findings: Single AP view of the chest performed. No focal consolidation or pleural effusion. No pneumothorax. The cardiomediastinal silhouette is within normal limits. Normal pulmonary vascularity. No evidence for lymphadenopathy. No visualized bony or soft tissue abnormality. Impression: Normal chest radiograph Medications Administered ER Medications Given: Normal saline 1L bolus ECG Rate (beats per minute): 129 Rhythm: sinus tachycardia Findings: + RBBB (incomplete) Comparison ECG Date: no prior available Code Status & VTE Plan Code Status Full VTE Prophylaxis Plan VTE Prophylaxis will be ordered: No PG Care Time/CCT Total # of Minutes Spent Total Time Spent with Patient: Total time spent is greater than 50% in coordination of care (as documented) at patient's floor/unit and/or counseling patient: Coding Level of Care Code 66480 INT INP/OBS CARE 3/75MIN Diagnoses Symptomatic anemia D64.9 Autoimmune hemolytic anemia D59.10 JEFFREY (generalized anxiety disorder) F41.1 Major depressive disorder, recurrent, severe without psychotic features F33.2
[2025-05-15 17:03] LABS: Iron 233.0 mcg/dl (35-175); Total Iron Binding Cap Calc 382.0 mcg/dl (250-450); Transferrin 273.0 mg/dl (200-360); Transferrin (FE) Percent Satur 61.0 % (20-50)
[2025-05-15 17:23] LABS: Ferritin 849.6 ng/ml (8-388)
[2025-05-15 17:28] LABS: Folate (Folic Acid),Ser orPlas 10.84 ng/ml (>5.38)
[2025-05-15 17:29] LABS: Vitamin B12 390.0 pg/ml (180-914)
[2025-05-15] MEDS: FOLIC ACID 1 MG in SYRINGE 9.8 ML IV STA (17:56)
[2025-05-15 18:07] LABS: Appearance Urine Clear (Clear); Glucose Urine UA Negative (Negative)
[2025-05-16 06:44] LABS: Hematocrit (blood only) 17.9 % (42.0-52.0); Hemoglobin 6.1 g/dl (14.0-18.0); Mean Corpuscular Hemoglobin 29.6 pg (25.0-34.0); Mean Corpuscular Volume 86.9 fL (80.0-100.0); Platelet Count 280 K/uL (130-400); RDW Standard Deviation 48.9 fL (36.4-46.3); Red Blood Count 2.06 M/uL (4.70-6.10); White Blood Count 14.72 K/ul (4.8-10.8)
[2025-05-16 07:07] LABS: Alanine Aminotransferase 36.0 U/L (7-52); Albumin Globulin Ratio 1.5 (0.9-2); Alkaline Phosphatase 65.0 U/L (34-104); Anion Gap 5.0 (3-11); Bilirubin,Total 5.8 mg/dl (0.2-1.0); Blood Urea Nitrogen 17.0 mg/dl (6-23); Calcium 9.0 mg/dl (8.6-10.3); Carbon Dioxide 27.0 mmol/L (21-32); Chloride 106.0 mmol/L (98-107); Creatinine Clr Calc Pharmacy 277.4 ml/min; Globulin 2.7 gm/dl (2.5-4.0); Glucose 143.0 mg/dl (70-99(Fasting)); Potassium 4.3 mmol/L (3.5-5.1); Sodium 138.0 mmol/L (136-145); Total Protein 6.8 gm/dl (6.0-8.3)
[2025-05-16 07:26] LABS: Immature Granulocytes # (auto) 0.42 K/uL (0.01-0.20); Immature Granulocytes % (auto) 2.9 %; Polychromasia 1+
[2025-05-16] MEDS: FOLIC ACID 1 MG in SYRINGE 9.8 ML IV SCH (08:20)
[2025-05-16] MEDS: ACETAMINOPHEN 325 MG TAB PO PRN (08:20)
--- NOTE | 2025-05-16 10:41 | Electrocardiogram Report ---
Test Reason : Blood Pressure : */* mmHG Vent. Rate : 129 BPM Atrial Rate : 129 BPM P-R Int : 146 ms QRS Dur : 94 ms QT Int : 298 ms P-R-T Axes : -2 58 14 degrees QTcB Int : 436 ms Sinus tachycardia Incomplete right bundle branch block Borderline ECG No previous ECGs available Confirmed by Vadim Pinzon ([id number]) on 05/16/2025 10:41:40 AM Referred By: Confirmed By: Vadim Pinzon
--- NOTE | 2025-05-16 11:13 | Hospitalist Progress Note ---
Date of Service May 16, 2025 Assessment & Plan (1) Symptomatic anemia: (2) Autoimmune hemolytic anemia: (3) JEFFREY (generalized anxiety disorder): (4) Major depressive disorder, recurrent, severe without psychotic features: Plan 30 year old male presents to the ER with fatigue, dizziness, dark urine, headache and found to have hemoglobin 6.8 from prior 14.1 in February 2023 Autoimmune hemolytic symptomatic anemia Hgb 6.8 -> 6.1, LDH 449 -> 446 overnight 1 unit packed RBCs (now available in blood bank), repeat Hgb 2 hours after this, repeat blood transfusion more dependant on symptoms than lab unless > 9 Bilirubin and LDH elevated, haptoglobin ordered as send out test, peripheral smear pending, direct Eileen pending Continue Solu-Medrol 100mg IV daily, gastric prophylaxis with pantoprazole 40mg PO daily Consult hematology - discussed with Dr Chow and will continue to hold off IVIG currently and hematology to review in person tomorrow Generalized anxiety disorder / depression Continue duloxetine and trazodone VTE Prophylaxis - encourage ambulation Disposition - continue on med/tele Admission and Anticipated Discharge Date Admission Date: May 15, 2025 Subjective No significant worsening symptoms with hemoglobin 6.8 -> 6.1 overnight. Ongoing headache, shortness of breath on exertion and fatigue. Physical Exam Respiratory: normal respiratory effort, lungs clear to auscultation Cardiovascular: RRR, no murmur, no edema Results & Data Results & Data Vital Signs (Past 12 Hours) Vital Signs Temp Pulse Pulse Resp BP BP BP 05/16/25 10:46 36.8 C 103 H 16 147/79 H 05/16/25 10:39 05/16/25 10:32 36.8 C 107 H 16 146/81 H 05/16/25 10:14 36.7 C 108 H 16 157/84 H 05/16/25 08:26 111 H 155/86 H 05/16/25 08:04 36.5 C 119 H 18 190/99 H 05/16/25 05:00 80 05/16/25 02:36 36.9 C 121 H 16 126/75 05/16/25 00:05 112 H 05/16/25 00:01 37.1 C 103 H 22 134/90 05/15/25 23:24 92 H 24 92/75 L Pulse Ox O2 Del Method 05/16/25 10:46 97 05/16/25 10:39 Room Air 05/16/25 10:32 98 05/16/25 10:14 98 05/16/25 08:26 05/16/25 08:04 100 Room Air 05/16/25 05:00 05/16/25 02:36 100 Room Air 05/16/25 00:05 05/16/25 00:01 98 Room Air 05/15/25 23:24 95 Room Air PG Care Time/CCT Total # of Minutes Spent Total Time Spent with Patient: Total time spent is greater than 50% in coordination of care (as documented) at patient's floor/unit and/or counseling patient: Coding Level of Care Code 94935 SUB INP/OBS CARE 2/35MIN Diagnoses Symptomatic anemia D64.9 Autoimmune hemolytic anemia D59.10 JEFFREY (generalized anxiety disorder) F41.1 Major depressive disorder, recurrent, severe without psychotic features F33.2
[2025-05-16] MEDS: MAGNESIUM SULFATE / D5W 1 GM/100 ML BAG IV ONE (14:30)
[2025-05-16 16:00] LABS: Hematocrit (blood only) 22.1 % (42.0-52.0); Hemoglobin 7.4 g/dl (14.0-18.0)
[2025-05-16] MEDS ORDERED: SODIUM CHLORIDE 0.9% 100 ML IV PRN (18:18)
[2025-05-17 02:38] LABS: Hematocrit (blood only) 19.8 % (42.0-52.0); Hemoglobin 6.7 g/dl (14.0-18.0)
[2025-05-17] MEDS ORDERED: SODIUM CHLORIDE 0.9% 100 ML IV PRN ×3 (02:43→20:37)
--- NOTE | 2025-05-17 02:47 | Communication Note ---
Date of Service: May 17, 2025 Notified by RN of patient feeling unwell. Evaluated patient at bedside and found to be sitting on the side of the bed, calm, pale with slight scleral icterus noted on exam, and in NAD. Exam showing clear lung sounds. Patient experiencing dyspnea on exertion, fatigue, tachycardia worse with standing, and palpitations. Patient states he has been following pattern of noting improvement in symptoms for approximately an hour after PRBC transfusion is completed, and then 4-5 hours later starts experiencing same symptoms with similar intensity as he was before he was transfused. H&H ordered and showed Hgb level of 6.7 w/ Hct of 19.8. Given current symptoms and noted hgb, will transfuse one unit of PRBC. Resident Activity Tracking Resident Involvement: Resident Care Provided Care Provided: Adult Hospital Medicine
[2025-05-17 07:28] LABS: Mean Corpuscular Hemoglobin 28.5 pg (25.0-34.0); Mean Corpuscular Volume 85.5 fL (80.0-100.0); Platelet Count 251 K/uL (130-400); RDW Standard Deviation 47.7 fL (36.4-46.3); Red Blood Count 2.00 M/uL (4.70-6.10); White Blood Count 13.73 K/ul (4.8-10.8)
[2025-05-17 07:30] LABS: Hematocrit (blood only) 17.1 % (42.0-52.0); Hemoglobin 5.7 g/dl (14.0-18.0)
[2025-05-17 07:38] LABS: Alanine Aminotransferase 39.0 U/L (7-52); Albumin Globulin Ratio 1.5 (0.9-2); Alkaline Phosphatase 63.0 U/L (34-104); Anion Gap 4.0 (3-11); Bilirubin,Total 6.3 mg/dl (0.2-1.0); Blood Urea Nitrogen 23.0 mg/dl (6-23); Calcium 8.6 mg/dl (8.6-10.3); Carbon Dioxide 30.0 mmol/L (21-32); Chloride 104.0 mmol/L (98-107); Creatinine Clr Calc Pharmacy 225.2 ml/min; Globulin 2.6 gm/dl (2.5-4.0); Glucose 117.0 mg/dl (70-99(Fasting)); Magnesium 2.1 mg/dl (1.7-2.4); Potassium 3.8 mmol/L (3.5-5.1); Sodium 138.0 mmol/L (136-145); Total Protein 6.4 gm/dl (6.0-8.3)
[2025-05-17 07:46] LABS: Immature Granulocytes # (auto) 0.47 K/uL (0.01-0.20); Immature Granulocytes % (auto) 3.4 %; Polychromasia 2+
[2025-05-17] MEDS ORDERED: methylPREDNISolone 1,000 MG in SYRINGE 0 ML IV SCH (08:15)
--- NOTE | 2025-05-17 08:43 | Oncology Consultation ---
Date of Consultation May 17, 2025 Assessment & Plan (1) Autoimmune hemolytic anemia: Plan Gentleman with remote history of ITP admitted with severe anemia likely secondary to warm autoimmune hemolytic anemia -Since he has not responded to 100 mg IV methylprednisolone, recommend increasing steroids to 1 g IV methylprednisolone daily x 3 days after which dose can be decreased back to 1 mg/kg prednisone p.o. daily if hemolysis improves -Daily hemolytic labs including LDH, bilirubin, reticulocyte count, CBC -IVIG 500 mg/kg daily x 3 days -Transfuse for hemoglobin below 7 or if he is symptomatic -Folic acid 1 mg p.o. daily -DVT prophylaxis -Hepatitis panel -CT CAP to rule out underlying hematologic malignancy such as lymphoma. Patient had CT scan 2021 which showed nonspecific lymphadenopathy -Will consider rituximab if he does not respond to IVIG and steroids History of Present Illness Reason for Consultation: Severe anemia Attending Physician: Omar Manning MD History of Present Illness 30-year-old gentleman with history of ITP at the age of 12 which responded to IVIG admitted with severe anemia likely secondary to warm autoimmune hemolytic anemia. He was started on prednisone 100 mg p.o. daily on admission and has so far received 3 units PRBC transfusion. States that his energy level has improved after receiving PRBC transfusion today.Labs on admission revealed hemoglobin of 6.9, hematocrit 20.9, platelet count 2 84,000, WBC 11.36 with reticulocyte count of 0.13, LDH of 449, total bilirubin of 6.9. TREMAYNE was positive for IgG and C3d. He denies any known family history of autoimmune conditions. Was diagnosed with ITP at age of 12 for which he received IVIG with resolution of ITPHe endorses 50 pounds weight loss over the past 1 year.. Allergies Allergy/AdvReac Type Severity Reaction Status Date / Time NSAIDS (Non-Steroidal AdvReac NO NSAIDS Verified 10/28/21 23:06 Anti-Inflamma PER [id number] ADM-DR BECERRA (ITP) aspirin (thrombocytopenia) AdvReac platelet Uncoded 10/28/21 23:06 function suppression Home Medications Medication Instructions Recorded Confirmed Type duloxetine 30 mg capsule,delayed 30 mg PO HS 05/15/25 05/15/25 History release duloxetine 60 mg capsule,delayed 60 mg PO HS 05/15/25 05/15/25 History release trazodone 50 mg tablet 100 mg PO HS 05/15/25 05/15/25 History Patient History Medical History (Updated 05/15/25 @ 17:40 by Omar Manning MD) Suicidal ideations Depression Idiopathic thrombocytopenic purpura (03/29/11) Surgical History Hx of removal of cyst Posterior to ear. Social History Smoking Status: Never smoker Do You Dip or Chew Tobacco: No; Hx Alcohol Use: Yes (Pt. drank prior to arrival this afternoon 05/15/25) Alcohol type: beer Hx Substance Use: Yes (Pt. has medical marijuana card) Last Used Substance: Just Prior to Arrival Preferred Language: Turkish Communication Ability: Effective Emblem Cutter Required: No Beliefs That Will Affect Care: None Current Living Situation: Alone Current Living Situation Comment: Pt. lives in apartment alone Other Information That Helps Us Care for You: No Feels Safe at Home: Yes Safety Concerns: Feels Safe At This Time Gender Identity: Nonbinary Assistive Devices: None Results & Data Vital Signs (Past 12 Hours) Vital Signs Temp Pulse Pulse Resp BP BP BP 05/17/25 07:37 36.4 C L 99 H 18 116/71 05/17/25 05:18 90 05/17/25 03:53 36.5 C 110 H 18 105/66 05/17/25 01:33 36.5 C 115 H 16 153/88 H 05/16/25 23:08 36.8 C 110 H 16 105/67 05/16/25 21:41 100 H 05/16/25 21:13 36.6 C 105 H 18 146/78 H Pulse Ox O2 Del Method 05/17/25 07:37 98 Room Air 05/17/25 05:18 05/17/25 03:53 97 Room Air 05/17/25 01:33 99 Room Air 05/16/25 23:08 97 Room Air 05/16/25 21:41 05/16/25 21:13 97
[2025-05-17] MEDS ORDERED: IMMUNE GLOBULIN (HUMAN) SOLN IV SCH (09:00)
[2025-05-17] MEDS: methylPREDNISolone 1,000 MG in NSS 250 ML IV SCH (09:08)
--- NOTE | 2025-05-17 09:21 | Hospitalist Progress Note ---
Date of Service May 17, 2025 Assessment & Plan (1) Symptomatic anemia: (2) Autoimmune hemolytic anemia: (3) JEFFREY (generalized anxiety disorder): (4) Major depressive disorder, recurrent, severe without psychotic features: Plan 30 year old male presents to the ER with fatigue, dizziness, dark urine, headache and found to have hemoglobin 6.8 from prior 14.1 in February 2023 Autoimmune hemolytic symptomatic anemia Hgb 6.8 -> 6.1, Transfused 1 units, Hgb 7.4, Transfused 2nd unit. Hgb 6.7 -> 5.7, 2 units ordered from [facility], transfuse one unit when available Bilirubin and LDH elevated, haptoglobin and direct Eileen pending Peripheral smear - "remarkable for normocytic anemia and leukocytosis. 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 Occasional spherocytes are seen but there are no schistocytes. Correlation with hemolytic work up labs is recommended." Given ongoing hemolysis as evidence by decreasing hemoglobin despite blood transfusions discussed with Dr Chow and steroids increased to 1g IV daily, IVIG ordered Appreciate hematology consult Generalized anxiety disorder / depression Continue duloxetine and trazodone VTE Prophylaxis - encourage ambulation Disposition - continue on med/tele Admission and Anticipated Discharge Date Admission Date: May 15, 2025 Subjective Feeling worse today and hemoglobin dropped to 5.7 despite 2 units packed RBCs. No chest pain but short of breath on exertion and fatigue ongoing. Physical Exam Constitutional: well developed and + morbidly obese; no acute distress Eyes: sclerae not anicteric Respiratory: normal respiratory effort, lungs clear to auscultation Cardiovascular: RRR, no murmur, no edema Heart Sounds: no murmur Extremities: normal capillary refill; no calf tenderness Gastrointestinal (Abdomen): Inspection/Auscultation: abdomen not distended Percussion/Palpation: abdomen soft; abdomen nontender Skin: no rashes, warm and dry + jaundice Neurologic: moves all extremities and awake; not confused Psychiatric: A+Ox3, euthymic affect Results & Data Results & Data Vital Signs (Past 12 Hours) Vital Signs Temp Pulse Pulse Resp BP BP Pulse Ox 05/17/25 07:37 36.4 C L 99 H 18 116/71 98 05/17/25 05:18 90 05/17/25 03:53 36.5 C 110 H 18 105/66 97 05/17/25 01:33 36.5 C 115 H 16 153/88 H 99 05/16/25 23:08 36.8 C 110 H 16 105/67 97 05/16/25 21:41 100 H O2 Del Method 05/17/25 07:37 Room Air 05/17/25 05:18 05/17/25 03:53 Room Air 05/17/25 01:33 Room Air 05/16/25 23:08 Room Air 05/16/25 21:41 PG Care Time/CCT Total # of Minutes Spent Total Time Spent with Patient: Total time spent is greater than 50% in coordination of care (as documented) at patient's floor/unit and/or counseling patient: Coding Level of Care Code 45140 SUB INP/OBS CARE 2/35MIN Diagnoses Symptomatic anemia D64.9 Autoimmune hemolytic anemia D59.10 JEFFREY (generalized anxiety disorder) F41.1 Major depressive disorder, recurrent, severe without psychotic features F33.2
[2025-05-17] MEDS: Octagam 10% IVIG 10 gram bottle IV SCH (10:11)
[2025-05-17] MEDS: Octagam 10% IVIG 20 gram bottle IV SCH (11:14)
[2025-05-17] MEDS: OPTIRAY 320 125ml IV ONE (16:50)
--- NOTE | 2025-05-17 18:51 | CT Scan Report ---
Exam: CT chest diagnostic without and with contrast. Reason for exam: Rule out lymphadenopathy. Previous studies: Chest x-ray 05/15/2025. FINDINGS: Both lung zones remain clear and well-aerated without active pulmonary nodule, infiltrate or mass at this time. No pleural effusion or pneumothorax is identified. Thyroid gland appears diffusely enlarged bilaterally. No significant abnormal hilar or mediastinal mass or adenopathy is seen. The aorta and great arteries showed no specific abnormality. No significant coronary artery calcification is noted. There is diffuse fatty infiltration within the liver. Spleen is moderately enlarged. No significant abnormal axillary adenopathy is seen. IMPRESSION: 1. Negative for active cardiopulmonary disease. No abnormal mass or adenopathy identified at this time. 2. Splenomegaly. 3. Diffuse hepatic steatosis. Liver is otherwise incompletely evaluated. 4. Diffuse thyromegaly. Further evaluation with thyroid ultrasound recommended. Electronically signed by Vasile Dhaliwal 05-17-2025 6:50 PM
--- NOTE | 2025-05-17 18:54 | CT Scan Report ---
Exam: CT abdomen/pelvis without and with contrast. Reason for exam: Rule out lymphadenopathy. Previous studies: CT abdomen/pelvis 10/26/2021. FINDINGS: Moderate hepatomegaly is seen with marked hepatic steatosis also present on the previous study, but no focal liver lesion. No radiopaque gallbladder calculi are seen at this time. The pancreas is unremarkable. Marked splenomegaly is again seen similar to the previous study. Adrenal glands are unremarkable. Scattered nonpathologically enlarged mesenteric and retroperitoneal lymph nodes are seen and without significant abnormal mass or adenopathy at this time. Appendix is unremarkable. No evidence of bowel obstruction is seen at this time. No acute or active bony process is seen. IMPRESSION: 1. Hepatosplenomegaly essentially stable as compared to the study of 10/26/2021. 2. Diffuse hepatic steatosis. 3. No abnormal focal mass or adenopathy seen at this time. Electronically signed by Vasile Dhaliwal 05-17-2025 6:54 PM
[2025-05-17 19:45] LABS: Hematocrit (blood only) 19.5 % (42.0-52.0); Hemoglobin 6.6 g/dl (14.0-18.0)
[2025-05-17 20:15] LABS: Hep B Surface Ag with confirm Negative (Negative)
[2025-05-17 20:21] LABS: Hep C Ab Rflx HepCQuant RNA Negative (Negative)
[2025-05-17 21:28] LABS: Thyroid Stimulating Hormone 0.527 uIu/ml (0.300-4.500)
[2025-05-18 00:59] LABS: Hematocrit (blood only) 20.5 % (42.0-52.0); Hemoglobin 6.8 g/dl (14.0-18.0)
[2025-05-18 07:32] LABS: Hematocrit (blood only) 20.3 % (42.0-52.0); Hemoglobin 6.5 g/dl (14.0-18.0)
[2025-05-18 07:33] LABS: Mean Corpuscular Hemoglobin 27.5 pg (25.0-34.0); Mean Corpuscular Volume 86.0 fL (80.0-100.0); Platelet Count 283 K/uL (130-400); RDW Standard Deviation 49.5 fL (36.4-46.3); Red Blood Count 2.36 M/uL (4.70-6.10); White Blood Count 17.10 K/ul (4.8-10.8)
[2025-05-18 07:44] LABS: Anisocytosis Present; Immature Granulocytes # (auto) 0.59 K/uL (0.01-0.20); Immature Granulocytes % (auto) 3.5 %; Polychromasia 1+
[2025-05-18 07:52] LABS: Alanine Aminotransferase 42.0 U/L (7-52); Albumin Globulin Ratio 1.1 (0.9-2); Alkaline Phosphatase 62.0 U/L (34-104); Anion Gap 5.0 (3-11); Bilirubin,Total 2.4 mg/dl (0.2-1.0); Blood Urea Nitrogen 22.0 mg/dl (6-23); Calcium 8.7 mg/dl (8.6-10.3); Carbon Dioxide 28.0 mmol/L (21-32); Chloride 103.0 mmol/L (98-107); Creatinine Clr Calc Pharmacy 238.4 ml/min; Globulin 3.5 gm/dl (2.5-4.0); Glucose 138.0 mg/dl (70-99(Fasting)); Magnesium 2.5 mg/dl (1.7-2.4); Potassium 4.3 mmol/L (3.5-5.1); Sodium 136.0 mmol/L (136-145); Total Protein 7.3 gm/dl (6.0-8.3)
--- NOTE | 2025-05-18 08:12 | Progress Note ---
Date of Service May 18, 2025 Assessment & Plan (1) Autoimmune hemolytic anemia: (2) Multinodular thyroid: Plan Improving AIHA. Continue current treatment. Admission and Anticipated Discharge Date Admission Date: May 15, 2025 Subjective Improving H/H, LDH and bilirubin since starting IVIG and steroids.CT scan did not reveal any evidence of malignancy, left thyroid nodule which needs outpatient follow-up. Results & Data Vital Signs (Past 12 Hours) Vital Signs Temp Pulse Pulse Resp BP BP BP 05/18/25 08:05 36.5 C 75 16 134/73 134/73 05/18/25 07:24 36.5 C 75 16 134/73 05/18/25 03:13 36.8 C 84 16 96/63 L 05/17/25 23:36 36.9 C 88 16 108/72 05/17/25 23:32 36.9 C 88 16 108/72 05/17/25 22:52 36.8 C 97 H 16 124/72 05/17/25 21:53 91 H 05/17/25 21:52 36.9 C 100 H 16 114/72 05/17/25 21:51 36.9 C 100 H 16 114/72 05/17/25 21:22 36.7 C 95 H 18 122/73 05/17/25 21:07 36.9 C 97 H 18 123/70 05/17/25 20:51 36.7 C 90 18 145/81 H Pulse Ox O2 Del Method O2 Flow Rate 05/18/25 08:05 98 Room Air 05/18/25 07:24 98 Room Air 05/18/25 03:13 96 Room Air 05/17/25 23:36 97 05/17/25 23:32 97 0 05/17/25 22:52 97 0 05/17/25 21:53 05/17/25 21:52 96 Room Air 05/17/25 21:51 96 0 05/17/25 21:22 96 05/17/25 21:07 95 05/17/25 20:51 97
[2025-05-18] MEDS ORDERED: SODIUM CHLORIDE 0.9% 100 ML IV PRN (08:45)
--- NOTE | 2025-05-18 10:06 | Ultrasound Report ---
THYROID ULTRASOUND CLINICAL HISTORY: Diffuse thyromegaly. COMPARISON STUDY: Chest CT May 17, 2025. TECHNIQUE: Sonography of the thyroid gland was performed. FINDINGS: Multinodular thyroid gland is noted. The gland is enlarged. The right lobe measures 6.7 x 4 .2 x 4 cm and the left lobe measures 6.8 x 3.2 x 3.6 cm. Multiple circumscribed wider than tall nodul es within each lobe are noted. The largest within the right lobe is a 3.8 x 2.4 x 2.6 cm solid circum scribed echogenic mid to lower pole nodule. The largest within the left lobe is a 3.1 x 1.9 x 2.9 cm predominant solid echogenic circumscribed midpole nodule. Isthmus measures 0.7 cm in AP dimension. Ad jacent soft tissues are unremarkable. IMPRESSION: Findings consistent with a multinodular thyroid gland, as described above. These nodules are indeterminate but none have suspicious imaging characteristics. Given their size, ultrasound-emily ded fine-needle aspiration of the 3.8 cm right lobe and 3.1 cm left lobe nodules is recommended on an outpatient basis if not are ready performed. ACT 112: Negative or not required by law. Electronically signed by: David Barrett M.D. 05/18/2025 10:04 AM
--- NOTE | 2025-05-18 10:30 | Hospitalist Progress Note ---
Date of Service May 18, 2025 Assessment & Plan (1) Symptomatic anemia: (2) Autoimmune hemolytic anemia: (3) JEFFREY (generalized anxiety disorder): (4) Major depressive disorder, recurrent, severe without psychotic features: (5) Multinodular thyroid: (6) GERD (gastroesophageal reflux disease): Plan 30 year old male presents to the ER with fatigue, dizziness, dark urine, headache and found to have hemoglobin 6.8 from prior 14.1 in February 2023 Autoimmune hemolytic symptomatic anemia Hgb 6.8 on admission, so far transfused 4 units packed RBCs, Hgb 6.5 this morning. Rate of loss appears to be slowing though with steroid/IVIG treatment. Transfuse 1 unit when available - discussed with blood bank and likely coming around 3pm. H&H 2 hours following this. Bilirubin and LDH elevated, haptoglobin and direct Eileen pending Peripheral smear - "remarkable for normocytic anemia and leukocytosis. 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 Occasional spherocytes are seen but there are no schistocytes. Correlation with hemolytic work up labs is recommended." Appreciate hematology management - ongoing Solu-medrol 1g IV and IVIG treatment GERD Takes frequent tums at home Using pantoprazole 40mg PO daily while on high dose steroids but can go to PRN dosing following this Generalized anxiety disorder / depression Continue duloxetine and trazodone Multinodular thyroid Consider FNA per US findings as outpatient TSH WNL VTE Prophylaxis - encourage ambulation Disposition - continue on med/tele Admission and Anticipated Discharge Date Admission Date: May 15, 2025 Subjective Feeling better than he did yesterday morning when hemoglobin 5.7 (Hgb 6.5 this morning). No chest pain or shortness of breath at rest. Just significant SOBOE and fatigue. Review of Systems Review of Systems: All systems reviewed & are unremarkable except as noted in HPI & below Physical Exam Constitutional: + morbidly obese Respiratory: normal respiratory effort, lungs clear to auscultation Cardiovascular: RRR, no murmur, no edema Gastrointestinal (Abdomen): Inspection/Auscultation: abdomen not distended Percussion/Palpation: abdomen soft; abdomen nontender Skin: + jaundice Psychiatric: A+Ox3, euthymic affect Results & Data Results & Data Vital Signs (Past 12 Hours) Vital Signs Temp Pulse Pulse Resp BP BP BP 05/18/25 09:52 05/18/25 08:10 05/18/25 08:05 36.5 C 75 16 134/73 134/73 05/18/25 07:24 36.5 C 75 16 134/73 05/18/25 05:42 77 05/18/25 03:13 36.8 C 84 16 96/63 L 05/17/25 23:36 36.9 C 88 16 108/72 05/17/25 23:32 36.9 C 88 16 108/72 05/17/25 22:52 36.8 C 97 H 16 124/72 Pulse Ox O2 Del Method O2 Flow Rate 05/18/25 09:52 Room Air 05/18/25 08:10 Room Air 05/18/25 08:05 98 Room Air 05/18/25 07:24 98 Room Air 05/18/25 05:42 05/18/25 03:13 96 Room Air 05/17/25 23:36 97 05/17/25 23:32 97 0 05/17/25 22:52 97 0 PG Care Time/CCT Total # of Minutes Spent Total Time Spent with Patient: Total time spent is greater than 50% in coordination of care (as documented) at patient's floor/unit and/or counseling patient: Coding Level of Care Code 82976 SUB INP/OBS CARE 2/35MIN Diagnoses Symptomatic anemia D64.9 Autoimmune hemolytic anemia D59.10 JEFFREY (generalized anxiety disorder) F41.1 Major depressive disorder, recurrent, severe without psychotic features F33.2 Multinodular thyroid E04.2 GERD (gastroesophageal reflux disease) K21.9
[2025-05-18 14:47] LABS: Toxic Vacuolation 2+
[2025-05-19 09:12] LABS: Hematocrit (blood only) 21.1 % (42.0-52.0); Hemoglobin 7.1 g/dl (14.0-18.0); Immature Granulocytes # (auto) 0.29 K/uL (0.01-0.20); Immature Granulocytes % (auto) 2.1 %; Mean Corpuscular Hemoglobin 29.3 pg (25.0-34.0); Mean Corpuscular Volume 87.2 fL (80.0-100.0); Platelet Count 248 K/uL (130-400); RDW Standard Deviation 49.8 fL (36.4-46.3); Red Blood Count 2.42 M/uL (4.70-6.10); White Blood Count 13.93 K/ul (4.8-10.8)
[2025-05-19 09:32] LABS: Alanine Aminotransferase 52.0 U/L (7-52); Albumin Globulin Ratio 0.9 (0.9-2); Alkaline Phosphatase 63.0 U/L (34-104); Anion Gap 3.0 (3-11); Bilirubin,Total 2.0 mg/dl (0.2-1.0); Blood Urea Nitrogen 25.0 mg/dl (6-23); Calcium 8.5 mg/dl (8.6-10.3); Carbon Dioxide 30.0 mmol/L (21-32); Chloride 103.0 mmol/L (98-107); Creatinine Clr Calc Pharmacy 218.9 ml/min; Globulin 4.1 gm/dl (2.5-4.0); Glucose 109.0 mg/dl (70-99(Fasting)); Magnesium 2.5 mg/dl (1.7-2.4); Potassium 3.9 mmol/L (3.5-5.1); Sodium 136.0 mmol/L (136-145); Total Protein 7.8 gm/dl (6.0-8.3)
[2025-05-19 09:33] LABS: Polychromasia 2+
--- NOTE | 2025-05-19 10:34 | Hospitalist Progress Note ---
Date of Service May 19, 2025 Assessment & Plan (1) Symptomatic anemia: (2) Autoimmune hemolytic anemia: (3) JEFFREY (generalized anxiety disorder): (4) Major depressive disorder, recurrent, severe without psychotic features: (5) Multinodular thyroid: (6) GERD (gastroesophageal reflux disease): Plan 30 year old male presents to the ER with fatigue, dizziness, dark urine, headache and found to have hemoglobin 6.8 from prior 14.1 in February 2023 Autoimmune hemolytic symptomatic anemia Hgb 6.8 on admission. He has received multiple units of packed red blood cells this admission. Hgb 7.1 this morning, May 19. He remains on intravenous steroid therapy and IVIG. Appreciate hematology consultation and recommendations. He remains on parenteral steroid/IVIG treatment. Bilirubin and LDH elevated, haptoglobin and direct Eileen pending Peripheral smear - "remarkable for normocytic anemia and leukocytosis. 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 Occasional spherocytes are seen but there are no schistocytes. Correlation with hemolytic work up labs is recommended." Appreciate hematology management - ongoing Solu-medrol 1g IV and IVIG treatment GERD Takes frequent tums at home Using pantoprazole 40mg PO daily while on high dose steroids but can go to PRN dosing following this Generalized anxiety disorder / depression Continue duloxetine and trazodone Multinodular thyroid Consider FNA per US findings as outpatient TSH WNL VTE Prophylaxis - encourage ambulation Disposition - continue on med/tele Admission and Anticipated Discharge Date Admission Date: May 15, 2025 Subjective Alert and oriented. No complaints. Hemoglobin level 7.1 this morning, May 19. He remains on parenteral steroid therapy and immunoglobulin therapy. Appreciate hematology consult and recommendations. Will repeat H&H this afternoon. No complaints. Hemodynamically stable. Review of Systems 2 Review of Systems: Constitutionalno fever or chills ENTno blurred vision, no double vision, no epistaxis, no sore throat Respiratoryno cough, no wheezing, no shortness of breath Cardiacno palpitations, no chest pain, no syncope Phyllis nausea, vomiting, diarrhea, melena, hematochezia GUno urinary retention, no urinary incontinence, no dysuria, no hematuria Musculoskeletalno joint pain, no muscle tenderness Skinno bruising, no rashes, no pruritus Neurono isolated weakness, no paresthesia, no weakness Psychno depression, no anxiety Physical Exam 2 Physical Exam: General-alert and oriented x3, no fever, no chills HEENT-head atraumatic and normocephalic, pupils equal and reactive to light, extraocular muscles intact Neck-no lymphadenopathy or thyromegaly, trachea midline Chest-clear to auscultation. No rales, wheezing or rhonchi Cardiac-regular rate and rhythm, normal S1 and S2 Abdomen-normal bowel sounds, no hepatosplenomegaly Extremities-no cyanosis, clubbing, or edema. Neuro-cranial nerves II through XII intact, motor and sensory function within normal limits, strength symmetrical, no focal deficits Psych-normal affect, normal mood Results & Data Results & Data Vital Signs (Past 12 Hours) Vital Signs Temp Pulse Pulse Resp BP BP Pulse Ox 05/19/25 07:51 70 05/19/25 07:37 36.3 C L 76 18 149/81 H 97 05/19/25 04:00 36.6 C 73 18 125/69 97 05/18/25 23:18 36.6 C 87 18 134/73 95 O2 Del Method 05/19/25 07:51 05/19/25 07:37 Room Air 05/19/25 04:00 Room Air 05/18/25 23:18 Room Air Laboratory Results 05/19/25 08:43 05/19/25 08:43 PG Care Time/CCT Total # of Minutes Spent Total Time Spent with Patient: Total time spent is greater than 50% in coordination of care (as documented) at patient's floor/unit and/or counseling patient: Coding Level of Care Code 05851 SUB INP/OBS CARE 2/35MIN Diagnoses Symptomatic anemia D64.9 Autoimmune hemolytic anemia D59.10 JEFFREY (generalized anxiety disorder) F41.1 Major depressive disorder, recurrent, severe without psychotic features F33.2 Multinodular thyroid E04.2 GERD (gastroesophageal reflux disease) K21.9
[2025-05-19 14:38] LABS: Hepatitis A Antibody IgM NON-REACTIVE (NON-REACTIVE); Hepatitis B Core Antibody IgM NON-REACTIVE (NON-REACTIVE)
[2025-05-19 20:26] LABS: Hematocrit (blood only) 24.8 % (42.0-52.0); Hemoglobin 8.1 g/dl (14.0-18.0)
[2025-05-20 06:35] LABS: Hematocrit (blood only) 23.4 % (42.0-52.0); Hemoglobin 7.8 g/dl (14.0-18.0); Immature Granulocytes # (auto) 0.24 K/uL (0.01-0.20); Immature Granulocytes % (auto) 2.0 %; Mean Corpuscular Hemoglobin 29.7 pg (25.0-34.0); Mean Corpuscular Volume 89.0 fL (80.0-100.0); Platelet Count 182 K/uL (130-400); RDW Standard Deviation 50.7 fL (36.4-46.3); Red Blood Count 2.63 M/uL (4.70-6.10); White Blood Count 12.23 K/ul (4.8-10.8)
[2025-05-20 06:55] LABS: Polychromasia 2+
[2025-05-20 07:10] LABS: Alanine Aminotransferase 59.0 U/L (7-52); Albumin Globulin Ratio 0.7 (0.9-2); Alkaline Phosphatase 54.0 U/L (34-104); Anion Gap 4.0 (3-11); Bilirubin,Total 1.5 mg/dl (0.2-1.0); Blood Urea Nitrogen 26.0 mg/dl (6-23); Calcium 8.3 mg/dl (8.6-10.3); Carbon Dioxide 30.0 mmol/L (21-32); Chloride 104.0 mmol/L (98-107); Creatinine Clr Calc Pharmacy 204.1 ml/min; Globulin 4.4 gm/dl (2.5-4.0); Glucose 113.0 mg/dl (70-99(Fasting)); Potassium 4.2 mmol/L (3.5-5.1); Sodium 138.0 mmol/L (136-145); Total Protein 7.6 gm/dl (6.0-8.3)
--- NOTE | 2025-05-20 09:13 | Progress Note ---
Date of Service May 20, 2025 Assessment & Plan (1) Autoimmune hemolytic anemia: (2) Multinodular thyroid: Plan -AIHA improving with steroids and IVIG. He will receive third dose of IVIG today -After receiving Third dose of IVIG, Okay to discharge home on prednisone 60 mg p.o. twice daily. Plan to start steroid taper when hemoglobin is above 10 -He will need to continue with daily folic acid 1 mg p.o. daily. Will arrange for him to have weekly labs and follow-up with me within 1 to 2 weeks. Admission and Anticipated Discharge Date Admission Date: May 15, 2025 Subjective Doing well clinically. Labs continue to show improvement in H/H, now 7.8/23.4, LDH almost normal at 258 and bilirubin has improved to 1.5. He continues with methylprednisolone 1 g IV daily and will receive third dose of IVIG today. Results & Data Vital Signs (Past 12 Hours) Vital Signs Temp Pulse Pulse Resp BP Pulse Ox O2 Del Method 05/20/25 08:05 36.5 C 72 20 114/76 94 Room Air 05/20/25 07:41 58 L 05/20/25 04:00 36.5 C 64 18 116/65 97 Room Air 05/19/25 23:00 36.5 C 69 20 102/60 97 Room Air 05/19/25 21:55 71
[2025-05-20 11:47] VITALS: RESP 18; TEMP 98.6; O2SAT 97
--- NOTE | 2025-05-20 12:12 | Discharge Summary ---
Discharge Summary Date of Service May 20, 2025 Principal Dx & Hospital Course #1 = Principal Diagnosis (1) Symptomatic anemia: (2) Autoimmune hemolytic anemia: (3) JEFFREY (generalized anxiety disorder): (4) Major depressive disorder, recurrent, severe without psychotic features: (5) Multinodular thyroid: (6) GERD (gastroesophageal reflux disease): Plan 30 year old male presents to the ER with fatigue, dizziness, dark urine, headache and found to have hemoglobin 6.8 from prior 14.1 in February 2023 Autoimmune hemolytic symptomatic anemia Hgb 6.8 on admission. He has received multiple units of packed red blood cells this admission. Hgb 7.1 this morning, May 19. He remains on intravenous steroid therapy and IVIG. Appreciate hematology consultation and recommendations. He remains on parenteral steroid/IVIG treatment. Bilirubin and LDH elevated, haptoglobin and direct Eileen pending Peripheral smear - "remarkable for normocytic anemia and leukocytosis. 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 Occasional spherocytes are seen but there are no schistocytes. Correlation with hemolytic work up labs is recommended." Appreciate hematology management -treated while hospitalized with Solu-medrol 1g IV and IVIG treatment GERD Takes frequent tums at home Using pantoprazole 40mg PO daily while on high dose steroids but can go to PRN dosing following this Generalized anxiety disorder / depression Continue duloxetine and trazodone Multinodular thyroid Consider FNA per US findings as outpatient TSH WNL VTE Prophylaxis - encourage ambulation Disposition -Home today, May 20, on prednisone 60 mg twice a day along with folic acid 1 mg daily. Weekly CBC will be monitored for the next 4 weeks and he will follow-up with hematology in 2 weeks. Admission HPI Per Admitting Provider Shahzad Simons is a 30 year old male who presents to the ER with headache, fatigue, dizziness, tachycardia (palpitations) and dark urine for the last 3 days. Worse on exertion. No chest pain. In the ER hemoglobin was noted to be 6.8. He denies donating blood. No history of anemia or anemia problems run in the family. No change in bowel movements, belching, flatulence, abdominal pain, nausea, vomiting, melena or hematochezia. He reports decreased appetite for the last month which he puts down to when he started on Ritalin in mid February and his appetite never recovered (eating approximately 30-40% less). He uses ibuprofen 2-3 times a wekk when he gets a headache. Not recently increased use of this. He notes pretty bad heartburn for as long as he can remember and takes x2 daryl whenever he has heartburn 3-4 times a week. He has noticed his urine darker than usual but dark yellow orange without any yoan blood. No hemoptysis, hematemesis or external bleeding noted. 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 Discharge Exam General-alert and oriented x3, no fever, no chills HEENT-head atraumatic and normocephalic, pupils equal and reactive to light, extraocular muscles intact Neck-no lymphadenopathy or thyromegaly, trachea midline Chest-clear to auscultation. No rales, wheezing or rhonchi Cardiac-regular rate and rhythm, normal S1 and S2 Abdomen-normal bowel sounds, no hepatosplenomegaly Extremities-no cyanosis, clubbing, or edema. Neuro-cranial nerves II through XII intact, motor and sensory function within normal limits, strength symmetrical, no focal deficits Psych-normal affect, normal mood Discharge Plan Discharge Items Patient Disposition: Home - Self-Care Reason For Visit: SYMPTOMATIC ANEMIA Discharge Diagnosis: Warm autoimmune hemolytic anemia, fatigue, dizziness Condition on Discharge: Good Activity: Resume your previous activity Non-emergency contact: Primary Care Provider and Oncologist Call non-emergency contact if: you have any medication questions and your symptoms worsen Follow-up/Referrals: David Castro PA-C [Primary Care Provider] - (PLEASE CALL YOUR PRIMARY CARE PROVIDER TO SCHEDULE A HOSPITAL FOLLOW-UP APPOINTMENT WITHIN 7-10 DAYS) Diet: Regular Addtl Attending Provider Instructions: Weekly lab test (nonfasting) for the next several weeks. Results will be sent to your [employer]. Take folic acid 1 mg once daily in addition to your other medications. Also take prednisone 60 mg twice daily. Prescriptions have been sent to your [facility] pharmacy in [place] Pending Studies at Discharge: No Stand-Alone Forms: My [employer], Work/School Release, Smoking Cessation Medications and DC Order Prescriptions: New folic acid 1 mg tablet 1 mg PO DAILY Qty: 30 0RF prednisone 20 mg tablet See Rx Instructions .ROUTE .COMPLEX Qty: 90 0RF Rx Instructions: Take 3 tablets (60 mg) twice daily until dosage is down titrated by your [employer] Continued trazodone 50 mg tablet 100 mg PO HS duloxetine 30 mg capsule,delayed release(DR/EC) 30 mg PO HS duloxetine 60 mg capsule,delayed release(DR/EC) 60 mg PO HS Discharge Orders: Discharge Order (Routine); Ordered 05/20/25 Ordered By: Rivera Manzo Admission Data Admit Date/Time: 05/15/25 17:05 Attending Provider: Rivera Manzo Admit Provider: Omar Manning Primary Care Provider: David Castro Other Providers: Omar Manning; Kourtney Chow Hospital Stay Data Consultations 05/15/25 16:45 ED Decision to Admit Stat 05/15/25 20:49 Consult Hematology Routine Diagnostic Imagining Performed 05/15/25 15:54 CT head/brain wo con Stat 05/17/25 16:00 CT abdomen pelvis wo/w con Routine CT chest diagnostic wo/w con Routine 05/18/25 07:00 US thyroid Routine Pending Results Patient Have Any Pending Studies at Discharge: No Discharge Instructions Given to Patient (Per Discharging Provider) Weekly lab test (nonfasting) for the next several weeks. Results will be sent to your [employer]. Take folic acid 1 mg once daily in addition to your other medications. Also take prednisone 60 mg twice daily. Prescriptions have been sent to your [facility] pharmacy in [place] Total Time Total Time Spent Total Time Spent (In Minutes): 45 minutes Coding Level of Care Code 77914 INP/OBS DISCH >30 MIN Diagnoses Symptomatic anemia D64.9 Autoimmune hemolytic anemia D59.10 JEFFREY (generalized anxiety disorder) F41.1 Major depressive disorder, recurrent, severe without psychotic features F33.2 Multinodular thyroid E04.2 GERD (gastroesophageal reflux disease) K21.9
[2025-05-20] MEDS ORDERED: IMMUNE GLOBULIN (HUMAN) SOLN IV ONE (15:00)
[2025-05-20 15:42] VITALS: BP 122/72; PULSE 73
[2025-05-20] MEDS: Octagam 10% IVIG 10 gram bottle IV SCH (16:09)
[2025-05-20] MEDS: Octagam 10% IVIG 20 gram bottle IV SCH (17:09)
== END 2025-05-20 19:30 | disposition home or self-care (01) | DRG 809 ==
LOC: ED 15:34 → SUATTDRO 17:05 → EDINP 17:05 → 2N 20:49

== ENCOUNTER 2025-05-30 10:46 | Inpatient (IN) ==
[2025-05-30] MEDS ORDERED: SODIUM CHLORIDE 0.9% 100 ML IV PRN (11:01)
[2025-05-30 11:54] LABS: Hematocrit (blood only) 19.9 % (42.0-52.0); Hemoglobin 6.1 g/dl (14.0-18.0); Mean Corpuscular Hemoglobin 29.6 pg (25.0-34.0); Mean Corpuscular Volume 96.6 fL (80.0-100.0); Platelet Count 151 K/uL (130-400); RDW Standard Deviation 74.8 fL (36.4-46.3); Red Blood Count 2.06 M/uL (4.70-6.10); White Blood Count 11.21 K/ul (4.8-10.8)
[2025-05-30 11:55] LABS: Alanine Aminotransferase 242.0 U/L (7-52); Albumin Level 3.4 gm/dl (3.4-5.0); Alkaline Phosphatase 90.0 U/L (34-104); Anion Gap 7.0 (3-11); Bilirubin,Total 4.6 mg/dl (0.2-1.0); Blood Urea Nitrogen 26.0 mg/dl (6-23); Calcium 8.4 mg/dl (8.6-10.3); Carbon Dioxide 25.0 mmol/L (21-32); Chloride 104.0 mmol/L (98-107); Creatinine Clr Calc Pharmacy 212.6 ml/min; Glucose 161.0 mg/dl (70-99(Fasting)); Iron 313.0 mcg/dl (35-175); Potassium 3.9 mmol/L (3.5-5.1); Sodium 136.0 mmol/L (136-145); Total Protein 6.7 gm/dl (6.0-8.3); Transferrin 253.0 mg/dl (200-360)
[2025-05-30 11:58] LABS: Basophilic Stippling 1+; Immature Granulocytes # (auto) 0.39 K/uL (0.01-0.20); Immature Granulocytes % (auto) 3.5 %; Polychromasia 2+; Reticulated Hemoglobin 37.5 pg (28.2-36.6); Reticulocytes # 0.250 10^6/uL (0.020-0.100)
[2025-05-30 12:13] LABS: Ferritin 1054.4 ng/ml (8-388)
--- NOTE | 2025-05-30 12:19 | Emergency Department Note ---
Impression & Plan Warm autoimmune hemolytic anemia, Symptomatic anemia, External bleeding hemorrhoids, Acute dehydration, Tachycardia ED Provider Note NAME: SWETHA COMER AGE: 30 SEX: M : 1995 ARRIVES VIA: Walk-In INFORMANT: Patient, family ED PROVIDER(S): Tyler Gillespie DO CHIEF COMPLAINT: symptomatic anemia HPI: This is a 30-year-old male with the PMHx of recently diagnosed warm hemolytic anemia, anxiety/depression, fatty liver disease and GERD presenting to [facility] for further evaluation of multiple complaints. Patient is accompanied by family who provide additional history. The patient reports significant fatigue and weakness. He also reports his skin has been pale. Patient reports chest palpitations and feels like his heart is racing. He does have mild dyspnea at rest as well as significant with exertion. Patient feels like his blood counts are down low again. Patient was recently in the hospital for a prolonged period of time given acute anemia. He was diagnosed with warm hemolytic anemia. They deny fever or chills. No cough or congestion. Denies chest pain. They deny abdominal pain, nausea and vomiting. No urinary complaints. No recent changes in bowel movements. Patient denies any hematemesis. No hemoptysis. He denies any blood within the urine. He states occasionally he has issues with hemorrhoids and has a little bit of blood on the toilet paper. Patient denies recent changes in medications or OTC supplements. Patient offers no other complaints, today. ADDITIONAL HISTORY OBTAINED: Per HPI Chronic Medical/Social Conditions Affecting Care: Per HPI PAST MEDICAL HISTORY: See Below PAST SURGICAL HISTORY: See Below FAMILY HISTORY: See Below SOCIAL HISTORY: See Below HOME MEDICATIONS: See Below ALLERGIES: See Below VITALS: See Below PHYSICAL EXAMINATION: GENERAL: Sitting up in bed, alert, ill appearing, well nourished, no distress, non-toxic, obese EYE EXAM: conjunctival pallor. PERRL and EOM's grossly intact. OROPHARYNX: no exudate, no erythema, lips, buccal mucosa, and tongue normal and mucous membranes are moist NECK: supple, no nuchal rigidity, no adenopathy, non-tender LUNGS: Clear to auscultation. Normal chest wall mechanics HEART: no murmurs, tachycardic rate, regular rhythm ABDOMEN: abdomen soft, non-tender, no masses, no rebound or guarding. BACK: Back is symmetrical on inspection and there is no deformity, no midline tenderness, no CVA tenderness. SKIN: no rashes and no bruising. Patient is pale UPPER EXTREMITIES: upper extremities are grossly normal. LOWER EXTREMITIES: No pitting edema. NEURO EXAM: Normal sensorium, GCS 15, normal speech, no gross weakness of arms, no gross weakness of legs. MEDICAL DECISION MAKING: Differential diagnoses includes but not limited to Hemolytic anemia, autoimmune disease, symptomatic anemia, electrolyte derangements, dehydration, lower GI bleeding In summary, this is a 30 year old male who presented with shortness of breath, tachycardia and generalized weakness. Differential as above. Nursing notes and pertinent past medical records reviewed. Vital signs reviewed and the patient is tachycardic but otherwise afebrile and hemodynamically stable. History and presentation revealed I reviewed recent hospital stay. Patient required blood products at his last admission. He was diagnosed with a warm autoimmune hemolytic anemia. Patient states that he failed to improve after discharge and now presents for similar symptoms. Physical examination revealed as above. As a result of my initial evaluation, I do feel the patient's symptoms are likely related to his known warm autoimmune hemolytic anemia. Will obtain basic labs and plan for blood transfusion. Patient was given IV fluid resuscitation as well as steroids. Diagnostics interpreted by me include cardiac monitoring as listed below: -Cardiac Monitoring: An order was placed for continuous cardiac monitoring. The monitor shows a rate of 90-130s with regular rhythm. Patient completed laboratory studies and imaging. Results independently interpreted by me are minimal leukocytosis. Does have significant anemia today. His previous hemoglobin was 9.4 and this is downtrended to 6.1. His platelets are normal. Increased reticulocyte count. He has increased BUN to creatinine ratio likely representing dehydration. Hemolysis evident by elevated bilirubin. He also has a transaminitis. LDH is also elevated. Ferritin was high as well as iron. Patient was initially given steroids, IV fluid resuscitation and blood products. Blood products were delayed as the patient has significant autoimmune antibodies. Patient was discussed with hematology who recommended folic acid and IVIG and this was ordered. Patient will require admission for significant anemia with severe symptoms. He also require admission for continued IVIG in the hospital for the next few days. Patient will likely benefit from a bone marrow biopsy as discussed with hematology. Ultimately, the decision was made to admit the patient for symptomatic warm autoimmune hemolytic anemia with transaminitis and acute dehydration requiring blood products and IVIG. I discussed the case with the hospitalist service via telephone/Tiger[employer] and they are agreeable to admit the patient to their services. Based on the above, including the patient's age, coexisting illnesses, labs, imaging, and exam findings the decision to treat as an inpatient. I discussed the patient with the hospitalist team who recommended admission to their services. They received the medications, treatments, interventions indicated above and their condition remained guarded. I discussed my findings with the patient and their family and they understand and agree with the treatment plan. All patient / family questions were answered to their satisfaction. Consults/Care Managements Discussions: Per MDM ER treatment provided: See above Procedures:none Critical Care: I have personally spent 45 minutes of critical care time in direct management of this patient. This includes bedside care, interpretation of diagnostic studies, and testing, discussion with consultants, patient, and family members, and other require inpatient management activities. This 45 minutes is in excess of all separately billable procedures. The chart was completed utilizing [employer] Speech voice recognition software. Grammatical errors, random word insertions, pronoun errors, and incomplete sentences are an occasional consequence of this system due to software limitations, ambient noise, and hardware issues. Any formal questions or concerns about the content, text, or information contained within the body of this dictation should be directly addressed to the physician for clarification. Past Med/Surg History Problem List (Updated 06/02/25 @ 16:14 by Tyler Gillespie DO) Tachycardia (Acute) Acute dehydration (Acute) External bleeding hemorrhoids (Acute) Symptomatic anemia (Acute) Warm autoimmune hemolytic anemia (Acute) Metabolic dysfunction-associated steatotic liver disease (MASLD) (Acute) Transaminasemia (Acute) Warm autoimmune hemolytic anemia GERD (gastroesophageal reflux disease) (Chronic) Multinodular thyroid (Chronic) JEFFREY (generalized anxiety disorder) (Chronic) Major depressive disorder, recurrent, severe without psychotic features (Chronic) Vitamin D deficiency (Chronic) Medical History (Updated 06/02/25 @ 16:14 by Tyler Gillespie DO) Suicidal ideations Depression Idiopathic thrombocytopenic purpura (03/29/11) Surgical History Hx of removal of cyst Posterior to ear. Social History Smoking Status: Never smoker Second Hand Exposure: No; Do You Dip or Chew Tobacco: No; Hx Alcohol Use: Yes Alcohol type: beer Hx Substance Use: Yes Last Used Substance: Days (ago) Last Used Substance Other:: last night Preferred Language: Korean Communication Ability: Effective Cad Programmer Required: No Beliefs That Will Affect Care: None Current Living Situation: Alone Current Living Situation Comment: Pt. lives in apartment alone Feels Safe at Home: Yes Gender Identity: Nonbinary Assistive Devices: None Allergies Allergies Allergy/AdvReac Type Severity Reaction Status Date / Time NSAIDS (Non-Steroidal AdvReac NO NSAIDS Verified 05/31/25 07:39 Anti-Inflamma PER [id number] ADM-DR BECERRA (ITP) aspirin (thrombocytopenia) AdvReac platelet Uncoded 05/31/25 07:39 function suppression Home Meds Home Medications Medication Instructions Recorded Confirmed duloxetine 30 mg capsule,delayed 30 mg PO HS 05/15/25 05/30/25 release duloxetine 60 mg capsule,delayed 60 mg PO HS 05/15/25 05/30/25 release hydrocortisone 2.5 % topical cream 1 applic topical BID Hemmorrhoids 05/30/25 05/30/25 with perineal applicator inulin-sorbitol 2 gram chewable 1 tab PO DAILY 05/30/25 05/30/25 tablet (Fiber Supplement (inulin)) trazodone 100 mg tablet 100 mg PO HS 05/30/25 05/30/25 Previous Rx's Medication Instructions Recorded folic acid 1 mg tablet 1 mg PO DAILY #30 tabs 05/20/25 prednisone 20 mg tablet See Rx Instructions .Route 05/20/25 .COMPLEX #90 tabs Results & Data (ED) Vital Signs Vital Signs - 24 hr 05/30/25 10:51 05/30/25 11:20 05/30/25 11:42 Temperature 37 C Temperature Source Oral Pulse Rate 128 H 117 H Pulse Rate [Apical] Respiratory Rate 18 Respiratory Effort / Characteristics Non-Labored Spontaneous Respiratory Depth Normal Respiratory Pattern Regular Blood Pressure 145/87 H Blood Pressure [Right Arm] Blood Pressure Mean 106 Blood Pressure Mean [Right Arm] Blood Pressure Position [Right Arm] Pulse Oximetry 99 Oxygen Delivery Method Room Air Room Air Sepsis Recent Fever Within 48 Hours No Sepsis New/Unexplained Change in Mental Status N/A Sepsis Action Taken by Nursing No Action Required 05/30/25 11:42 05/30/25 12:03 05/30/25 13:07 Temperature Temperature Source Pulse Rate 115 H Pulse Rate [Apical] 110 H 105 H Respiratory Rate 22 20 22 Respiratory Effort / Characteristics Non-Labored Non-Labored Respiratory Depth Normal Normal Respiratory Pattern Blood Pressure 121/90 Blood Pressure [Right Arm] 124/90 131/86 Blood Pressure Mean 100 Blood Pressure Mean [Right Arm] 101 101 Blood Pressure Position [Right Arm] Sitting Sitting Pulse Oximetry 97 97 96 Oxygen Delivery Method Room Air Room Air Room Air Sepsis Recent Fever Within 48 Hours Sepsis New/Unexplained Change in Mental Status Sepsis Action Taken by Nursing Laboratory Data 06/02/25 06:14 06/02/25 06:14 Lab Results 05/30/25 05/30/25 05/30/25 Range/Units 11:00 11:00 11:05 WBC 11.21 H (4.8-10.8) K/ul RBC 2.06 L (4.70-6.10) M/uL Hgb 6.1 L* (14.0-18.0) g/dl Hct 19.9 L* (42.0-52.0) % MCV 96.6 (80.0-100.0) fL MCH 29.6 (25.0-34.0) pg MCHC 30.7 L (32.0-36.0) g/dL RDW Std Deviation 74.8 H (36.4-46.3) fL RDW Coeff of Natali 24.1 H (11.5-14.5) % Plt Count 151 (130-400) K/uL MPV 9.0 L (9.4-12.4) fL Immature Gran % (Auto) 3.5 % Neut % (Auto) 87.8 % Lymph % (Auto) 6.2 % [place] % (Auto) 2.4 % Eos % (Auto) 0.0 % Baso % (Auto) 0.1 % Reticulocyte % (Auto) 12.28 H (0.50-2.00) % Neut # (Auto) 9.84 H (1.40-6.50) K/uL Lymph # (Auto) 0.70 L (1.20-3.40) K/uL [place] # (Auto) 0.27 (0.11-0.59) K/uL Eos # (Auto) 0.00 (0.00-0.50) K/uL Baso # (Auto) 0.01 (0.00-0.20) K/uL Reticulocyte # 0.250 H (0.020-0.100) 10^6/uL Immature Gran # (Auto) 0.39 H (0.01-0.20) K/uL Absolute Nucleated RBC 0.06 (0.00-0.12) K/uL Nucleated RBC % (auto) 0.5 % Polychromasia 2+ Basophilic Stippling 1+ Immature Retic Fraction 31.2 H (2.3-15.9) % Retic Hgb Content 37.5 H (28.2-36.6) pg Haptoglobin Cancelled Sodium 136 (136-145) mmol/L Potassium 3.9 (3.5-5.1) mmol/L Chloride 104 (98-107) mmol/L Carbon Dioxide 25 (21-32) mmol/L Anion Gap 7 (3-11) BUN 26 H (6-23) mg/dl Creatinine 0.77 (0.6-1.4) mg/dl Est Cr Clr Drug Dosing 212.6 ml/min eGFR 125.06 BUN/Creatinine Ratio 33.8 H (10-20) Glucose 161 H (70-99(Fasting)) mg/dl Calcium 8.4 L (8.6-10.3) mg/dl Iron 313 H (35-175) mcg/dl Transferrin 253 (200-360) mg/dl Ferritin 1054.4 H (8-388) ng/ml Total Bilirubin 4.6 H (0.2-1.0) mg/dl Direct Bilirubin 1.0 H (0-0.2) mg/dl AST 79 H (13-39) U/L ALT 242 H (7-52) U/L Alkaline Phosphatase 90 (34-104) U/L Lactate Dehydrogenase TNP Troponin I High Sens 12.9 (0-20) pg/ml Total Protein 6.7 (6.0-8.3) gm/dl Albumin 3.4 (3.4-5.0) gm/dl Blood Type B Positive Antibody Screen POSITIVE A Antibody Identification Auto Cold Agglutinin Auto Adkins Agglutinin Antibody ID Comment Cancelled Crossmatch See Detail 05/30/25 Range/Units 12:36 WBC (4.8-10.8) K/ul RBC (4.70-6.10) M/uL Hgb (14.0-18.0) g/dl Hct (42.0-52.0) % MCV (80.0-100.0) fL MCH (25.0-34.0) pg MCHC (32.0-36.0) g/dL RDW Std Deviation (36.4-46.3) fL RDW Coeff of Natali (11.5-14.5) % Plt Count (130-400) K/uL MPV (9.4-12.4) fL Immature Gran % (Auto) % Neut % (Auto) % Lymph % (Auto) % [place] % (Auto) % Eos % (Auto) % Baso % (Auto) % Reticulocyte % (Auto) (0.50-2.00) % Neut # (Auto) (1.40-6.50) K/uL Lymph # (Auto) (1.20-3.40) K/uL [place] # (Auto) (0.11-0.59) K/uL Eos # (Auto) (0.00-0.50) K/uL Baso # (Auto) (0.00-0.20) K/uL Reticulocyte # (0.020-0.100) 10^6/uL Immature Gran # (Auto) (0.01-0.20) K/uL Absolute Nucleated RBC (0.00-0.12) K/uL Nucleated RBC % (auto) % Polychromasia Basophilic Stippling Immature Retic Fraction (2.3-15.9) % Retic Hgb Content (28.2-36.6) pg Haptoglobin <10 L Sodium (136-145) mmol/L Potassium (3.5-5.1) mmol/L Chloride (98-107) mmol/L Carbon Dioxide (21-32) mmol/L Anion Gap (3-11) BUN (6-23) mg/dl Creatinine (0.6-1.4) mg/dl Est Cr Clr Drug Dosing ml/min eGFR BUN/Creatinine Ratio (10-20) Glucose (70-99(Fasting)) mg/dl Calcium (8.6-10.3) mg/dl Iron (35-175) mcg/dl Transferrin (200-360) mg/dl Ferritin (8-388) ng/ml Total Bilirubin (0.2-1.0) mg/dl Direct Bilirubin (0-0.2) mg/dl AST (13-39) U/L ALT (7-52) U/L Alkaline Phosphatase (34-104) U/L Lactate Dehydrogenase 397 H Troponin I High Sens (0-20) pg/ml Total Protein (6.0-8.3) gm/dl Albumin (3.4-5.0) gm/dl Blood Type Antibody Screen Antibody Identification Antibody ID Comment Crossmatch Administered Medications Duloxetine HCl (Duloxetine Hcl 60 Mg Cap) 60 mg PO HS MAGGI Stop: 06/29/25 20:59 Last Admin: 06/01/25 20:11 Dose: 60 mg Documented By: Admin: 06/01/25 02:14 Dose: 60 mg Documented By: Admin: 05/30/25 19:37 Dose: 60 mg Documented By: TRANG Duloxetine HCl (Duloxetine Hcl 30 Mg Cap) 30 mg PO MAGGI Stop: 06/29/25 20:59 Last Admin: 06/01/25 20:11 Dose: 30 mg Documented By: Admin: 06/01/25 02:14 Dose: 30 mg Documented By: Admin: 05/30/25 19:37 Dose: 30 mg Documented By: TRANG Folic Acid (Folic Acid 1 Mg Tab) 1 mg PO DAILY MAGGI Stop: 06/30/25 08:59 Last Admin: 06/02/25 11:20 Dose: 1 mg Documented By: Admin: 06/01/25 08:54 Dose: 1 mg Documented By: cdc Admin: 05/31/25 08:58 Dose: 1 mg Documented By: ROB Pantoprazole Sodium (Pantoprazole 40 Mg Tab) 40 mg PO [facility] MAGGI Stop: 06/30/25 14:29 Last Admin: 06/02/25 11:20 Dose: 40 mg Documented By: Admin: 06/01/25 08:54 Dose: 40 mg Documented By: cdc Admin: 05/31/25 15:55 Dose: 40 mg Documented By: ROB Trazodone HCl (Trazodone Hcl 100 Mg Tab) 100 mg PO MAGGI Stop: 06/29/25 20:59 Last Admin: 06/01/25 20:10 Dose: 100 mg Documented By: Admin: 06/01/25 02:13 Dose: 100 mg Documented By: Admin: 05/30/25 19:37 Dose: 100 mg Documented By: TRANG Discontinued Medications Fentanyl Citrate (Fentanyl Citrate Pf 100 Mcg/2 Ml Vial) Confirm Administered Dose 100 mcg .ROUTE .STK-MED ONE Stop: 06/02/25 09:34 Last Admin: 06/02/25 14:19 Dose: Not Given Documented By: ROB Sodium Chloride (Nss) 500 mls @ 999 mls/hr IV .Q31M ONE Stop: 05/30/25 13:18 Last Infusion: 05/30/25 13:42 Dose: Infused Documented By: Admin: 05/30/25 13:07 Dose: 999 mls/hr Documented By: MILADY Folic Acid 1 mg/ Syringe 10 mls @ 5 mls/min IV NOW STA Stop: 05/30/25 12:51 Last Admin: 05/30/25 13:55 Dose: 5 mls/min Documented By: MMF Immune Globulin (Octagam 10%) 200 mls @ 63 mls/hr IV TODAY@1800,1900 MAGGI; Protocol Stop: 05/30/25 22:11 Last Titration: 05/30/25 23:42 Dose: Infused Documented By: Admin: 05/30/25 21:17 Dose: 1.59 mg/kg/min, 100 mls/hr Documented By: Titration: 05/30/25 21:11 Dose: Infused Documented By: Titration: 05/30/25 19:45 Dose: 1.59 mg/kg/min, 100 mls/hr Documented By: Admin: 05/30/25 18:51 Dose: 1 mg/kg/min, 63 mls/hr Documented By: AMS Immune Globulin (Octagam 10%) 100 mls @ 63 mls/hr IV NOW STA; Protocol Stop: 05/30/25 18:14 Last Titration: 05/30/25 18:56 Dose: Infused Documented By: Admin: 05/30/25 17:18 Dose: 1 mg/kg/min, 63 mls/hr Documented By: TOSIN Methylprednisolone 1,000 mg/ (Sodium Chloride) 266 mls @ 266 mls/hr IV Q24H MAGGI Stop: 06/30/25 08:59 Last Infusion: 06/01/25 13:54 Dose: Infused Documented By: cdc Admin: 06/01/25 12:35 Dose: 266 mls/hr Documented By: cdc Infusion: 05/31/25 09:58 Dose: Infused Documented By: Admin: 05/31/25 08:58 Dose: 266 mls/hr Documented By: KKS Immune Globulin (Octagam 10%) 200 mls @ 106.86 mls/hr IV 1700,1900,2100,2300 MAGGI; Protocol Stop: 06/02/25 00:53 Last Titration: 06/02/25 04:06 Dose: Infused Documented By: Admin: 06/02/25 02:00 Dose: 1 mg/kg/min, 106.9 mls/hr Documented By: Titration: 06/02/25 01:52 Dose: Infused Documented By: Admin: 06/01/25 23:59 Dose: 1 mg/kg/min, 106.9 mls/hr Documented By: Titration: 06/01/25 23:59 Dose: Infused Documented By: Admin: 06/01/25 22:06 Dose: 1 mg/kg/min, 106.9 mls/hr Documented By: Titration: 06/01/25 22:04 Dose: Infused Documented By: Admin: 06/01/25 20:11 Dose: 1 mg/kg/min, 106.9 mls/hr Documented By: Titration: 06/01/25 08:19 Dose: Infused Documented By: cdc Admin: 06/01/25 06:19 Dose: 4 mg/kg/min, 427.4 mls/hr Documented By: Titration: 06/01/25 06:07 Dose: Infused Documented By: Admin: 06/01/25 05:38 Dose: 4 mg/kg/min, 427.4 mls/hr Documented By: Titration: 06/01/25 05:35 Dose: Infused Documented By: Titration: 06/01/25 05:10 Dose: 4 mg/kg/min, 427.4 mls/hr Documented By: Admin: 06/01/25 04:55 Dose: 1 mg/kg/min, 106.9 mls/hr Documented By: Titration: 06/01/25 04:55 Dose: Infused Documented By: Admin: 06/01/25 03:02 Dose: 1 mg/kg/min, 106.9 mls/hr Documented By: SAÚL Immune Globulin (Octagam 10%) 100 mls @ 106.86 mls/hr IV DAILY@1600 MAGGI; Protocol Stop: 06/01/25 16:57 Last Titration: 06/01/25 20:17 Dose: Infused Documented By: Admin: 06/01/25 16:51 Dose: 0.47 mg/kg/min, 50 mls/hr Documented By: cdc Titration: 06/01/25 03:01 Dose: Infused Documented By: Admin: 06/01/25 02:04 Dose: 1 mg/kg/min, 106.9 mls/hr Documented By: SAÚL Methylprednisolone 1,000 mg/ (Sodium Chloride) 266 mls @ 266 mls/hr IV Q24H ONE Stop: 06/02/25 13:59 Last Infusion: 06/02/25 14:00 Dose: Infused Documented By: Admin: 06/02/25 13:00 Dose: 266 mls/hr Documented By: ROB Methylprednisolone (Methylprednisolone 125 Mg/2 Ml Vial) 100 mg IV NOW STA Stop: 05/30/25 11:03 Last Admin: 05/30/25 11:31 Dose: 100 mg Documented By: MILADY Discharge Plan Visit Data Chief Complaint: Cardiac Assessment Stated Complaint: ANEMIA-TACHY, CHEST PAIN, WEAKNESS, DARK PEE ED Provider: Tyler Gillespie Discharge Problem: Warm autoimmune hemolytic anemia, Symptomatic anemia, External bleeding hemorrhoids, Acute dehydration, Tachycardia Patient Disposition: Admitted As Inpatient Condition: Serious Discharge Instructions Interventions: ED Discharge Assessment Last Done: 05/30/25 18:04
[2025-05-30] MEDS ORDERED: IMMUNE GLOBULIN (HUMAN) SOLN IV ONE (12:50)
[2025-05-30] MEDS: SODIUM CHLORIDE 0.9% 500 ML IV ONE (13:07)
[2025-05-30] MEDS: FOLIC ACID 1 MG in SYRINGE 9.8 ML IV STA (13:55)
[2025-05-30] MEDS ORDERED: ACETAMINOPHEN 325 MG TAB PO PRN (14:39)
--- NOTE | 2025-05-30 14:59 | History & Physical Report ---
Date of Service May 30, 2025 Assessment & Plan (1) Autoimmune hemolytic anemia: Plan: -solu-medrol 1000mg IV given in ER -IVIG ordered -PRBC transfusion -f/u CBC -Heme-onc consulted -planned for bone marrow biopsy as per heme-onc (2) JEFFREY (generalized anxiety disorder): Plan: -duloxetine -trazodone History of Present Illness Chief Complaint: SOB, chest pain Primary Care Provider: David Castro PA-C Pt is a 30 y/o male with pmh of autoimmune hemolytic anemia, anxiety, depression, who presents with chest pain, palpitations, and SOB. He also noticed dark urine. Pt was found to have heme of 6.1 and with retic count of 12.8. Pt is being treated by Dr. Chow for autoimmune hemolytic anemia and recent had IVIG and blood transfusions. The case was discussed with Dr. Chow again today in the ER who recommended solu-medrol 1000mg, IVIG and admission for further treatment with PRBC transfusion and bone marrow biopsy. Allergies Allergy/AdvReac Type Severity Reaction Status Date / Time NSAIDS (Non-Steroidal AdvReac NO NSAIDS Verified 05/22/25 11:40 Anti-Inflamma PER [id number] ADM-DR BECERRA (ITP) aspirin (thrombocytopenia) AdvReac platelet Uncoded 10/28/21 23:06 function suppression Home Medications Medication Instructions Recorded Confirmed Type duloxetine 30 mg capsule,delayed 30 mg PO HS 05/15/25 05/30/25 History release duloxetine 60 mg capsule,delayed 60 mg PO HS 05/15/25 05/30/25 History release folic acid 1 mg tablet 1 mg PO DAILY #30 tabs 05/20/25 05/30/25 Rx prednisone 20 mg tablet See Rx Instructions .Route 05/20/25 05/30/25 Rx .COMPLEX #90 tabs hydrocortisone 2.5 % topical cream 1 applic topical BID Hemmorrhoids 05/30/25 05/30/25 History with perineal applicator inulin-sorbitol 2 gram chewable 1 tab PO DAILY 05/30/25 05/30/25 History tablet (Fiber Supplement (inulin)) trazodone 100 mg tablet 100 mg PO HS 05/30/25 05/30/25 History Past Med/Surg History Problem List Elevated liver enzymes (Acute) Anemia (Acute) Dizziness (Acute) Weakness (Acute) GERD (gastroesophageal reflux disease) Multinodular thyroid Autoimmune hemolytic anemia Shortness of breath (Acute) Headache (Acute) Symptomatic anemia (Acute) JEFFREY (generalized anxiety disorder) Major depressive disorder, recurrent, severe without psychotic features Vitamin D deficiency Medical History Suicidal ideations Depression Idiopathic thrombocytopenic purpura (03/29/11) Surgical History Hx of removal of cyst Posterior to ear. Social History Smoking Status: Current every day smoker Do You Dip or Chew Tobacco: No; Hx Alcohol Use: Yes (Pt. drank prior to arrival this afternoon 05/15/25) Alcohol type: beer Hx Substance Use: Yes (Pt. has medical marijuana card) Last Used Substance: Just Prior to Arrival Preferred Language: Danish Communication Ability: Effective Account Information Clerk Required: No Beliefs That Will Affect Care: None Current Living Situation: Alone Current Living Situation Comment: Pt. lives in apartment alone Feels Safe at Home: Yes Gender Identity: Nonbinary Assistive Devices: None Review of Systems Review of Systems: CONST: Negative for fever, body aches and chills. HENT: Negative for neck pain/stiffness, headache, congestion, sore throat, swelling. EYES: Negative for discharge/pain or vision changes. RESP: Negative for cough/hemoptysis and + shortness of breath. CV: Negative chest pain, difficulty breathing, +palpitations. ABD: Negative pain, nausea, vomiting. : Negative increase frequency, dysuria, blood in urine or stool. MUSC: Negative for muscle aches, edema. SKIN: Negative rash, lesions/sores. NEURO: Negative headache, dizziness, weakness. Physical Exam Physical Exam: GENERAL APPEARANCE NAD, activity normal for age, well developed/ well nourished, no cyanosis, pallor, or diaphoresis. EYES lids/conjunctiva normal. EARS/NOSE/THROAT Mucous membranes moist, nares normal, lips/teeth normal uvula midline without oral pharyngeal erythema, exudate or swelling TMs normal bilaterally. No lymphangitis/lymphedema. HEAD/NECK normocephalic atraumatic, no facial trauma, neck is supple. RESPIRATORY respiratory effort normal, speaks in full sentences, no tripod position, no accessory muscle use. Lungs clear to auscultation without rhonchi, wheezes, rales CARDIAC Regular rate and rhythm, no edema. ABDOMINAL Soft, ND/NT. No evidence of fluid wave. No pulsatile masses on exam, rebound tenderness, Morton sign or pain over Mcburney's point. MUSCLES/EXTREMITIES No abnormal range of motion, no swelling. SKIN Warm, pink and dry. No rashes, dermatoses, petechiae or lesions. NEUROLOGICAL Speech is clear and appropriate. Normal level of consciousness. Gai t and coordination are normal. 5/5 strength in all extremities. PSYCH Normal mood and affect. Judgement/competence is appropriate Results & Data Results & Data Vital Signs (Past 12 Hours) Vital Signs Temp Pulse Pulse Resp BP BP Pulse Ox 05/30/25 13:07 105 H 22 131/86 96 05/30/25 12:03 115 H 20 121/90 97 05/30/25 11:42 110 H 22 124/90 97 05/30/25 11:42 05/30/25 11:20 117 H 05/30/25 10:51 37 C 128 H 18 145/87 H 99 O2 Del Method 05/30/25 13:07 Room Air 05/30/25 12:03 Room Air 05/30/25 11:42 Room Air 05/30/25 11:42 Room Air 05/30/25 11:20 05/30/25 10:51 Room Air PG Care Time/CCT Total # of Minutes Spent Total Time Spent with Patient: Total time spent is greater than 50% in coordination of care (as documented) at patient's floor/unit and/or counseling patient: Coding Level of Care Code 90477 INT INP/OBS CARE 2/55MIN Diagnoses Autoimmune hemolytic anemia D59.10 JEFFREY (generalized anxiety disorder) F41.1
[2025-05-30] MEDS: Octagam 10% IVIG 10 gram bottle IV STA (17:18)
[2025-05-30] MEDS: Octagam 10% IVIG 20 gram bottle IV SCH (18:51)
[2025-05-31 07:19] LABS: Hematocrit (blood only) 16.5 % (42.0-52.0); Hemoglobin 5.3 g/dl (14.0-18.0); Mean Corpuscular Hemoglobin 31.2 pg (25.0-34.0); Mean Corpuscular Volume 97.1 fL (80.0-100.0); Platelet Count 150 K/uL (130-400); RDW Standard Deviation 75.8 fL (36.4-46.3); Red Blood Count 1.70 M/uL (4.70-6.10); White Blood Count 11.46 K/ul (4.8-10.8)
[2025-05-31 07:26] LABS: Anion Gap 3.0 (3-11); Blood Urea Nitrogen 22.0 mg/dl (6-23); Calcium 8.5 mg/dl (8.6-10.3); Carbon Dioxide 29.0 mmol/L (21-32); Chloride 104.0 mmol/L (98-107); Creatinine Clr Calc Pharmacy 312.2 ml/min; Glucose 98.0 mg/dl (70-99(Fasting)); Potassium 4.0 mmol/L (3.5-5.1); Sodium 136.0 mmol/L (136-145)
--- NOTE | 2025-05-31 08:16 | Electrocardiogram Report ---
Test Reason : Blood Pressure : */* mmHG Vent. Rate : 112 BPM Atrial Rate : 112 BPM P-R Int : 128 ms QRS Dur : 90 ms QT Int : 330 ms P-R-T Axes : 67 -2 55 degrees QTcB Int : 450 ms Sinus tachycardia Borderline ECG When compared with ECG of 22-May-2025 09:03, No significant change was found Confirmed by Peace Castellanos (Colt) on 05/31/2025 8:16:07 AM Referred By: REFERRED SELF Confirmed By: Peace Castellanos
[2025-05-31] MEDS: FOLIC ACID 1 MG TAB PO SCH (08:58)
[2025-05-31] MEDS: methylPREDNISolone 1,000 MG in NSS 250 ML IV SCH (08:58)
[2025-05-31] MEDS ORDERED: methylPREDNISolone 1,000 MG in SODIUM CHLORIDE 0.9% 250 ML IV SCH (09:00)
[2025-05-31] MEDS ORDERED: [UNRECOGNIZED DRUG - OTHER] PO SCH (09:00)
--- NOTE | 2025-05-31 09:05 | Oncology Consultation ---
Date of Consultation May 31, 2025 Assessment & Plan (1) Autoimmune hemolytic anemia: (2) Elevated liver enzymes: Plan -Gentleman with warm autoimmune hemolytic anemia (IgG and C3d positive on Eileen test, PNH flow negative) who temporarily responded to IVIG and steroids now pre senting with relapse in less than 2 weeks. Based on this, he is refractory to steroids and so would recommend rituximab 375 mg/m weekly x 4 doses. Plan to start treatment immediately after discharge. -Elevated LFTs likely multifactorial due to hemolysis, severe hepatic steatosis and possibly IVIG. He would need to see hepatology upon discharge from hospital. -Recommend continuing with high-dose steroids with methylprednisolone 1 g IV daily x 3 days, IVIG 0.5 mg/kg/day x 3 to 5 days -Folic acid 1 mg p.o. daily -Daily CBC, LDH, bilirubin, reticulocyte count -Bone marrow biopsy to rule out underlying hematologic malignancy -If he does not respond to rituximab would consider other options including cyclophosphamide, fostamatinib, CellCept and will refer to hematology at tertiary center. Patient and mother were given the opportunity to ask questions which indicated were answered to their satisfaction. History of Present Illness Reason for Consultation: Autoimmune hemolytic anemia Attending Physician: Omar Manning MD History of Present Illness 30-year-old gentleman with history of ITP in childhood who was recently diagnosed with warm autoimmune hemolytic anemia during recent hospitalization at [facility] about 2 weeks ago. At that time, he he responded to IVIG and steroids with improvement in bilirubin, LDH, improved hemoglobin of 9.4 and hematocrit of 30.1 prior to discharge. He was discharged home on prednisone 60 mg p.o. twice daily. Presented to the ER again with worsening symptoms and hemoglobin of 6.1 with hematocrit of 19.9. Allergies Allergy/AdvReac Type Severity Reaction Status Date / Time NSAIDS (Non-Steroidal AdvReac NO NSAIDS Verified 05/31/25 07:39 Anti-Inflamma PER [id number] ADM-DR BECERRA (ITP) aspirin (thrombocytopenia) AdvReac platelet Uncoded 05/31/25 07:39 function suppression Home Medications Medication Instructions Recorded Confirmed Type duloxetine 30 mg capsule,delayed 30 mg PO HS 05/15/25 05/30/25 History release duloxetine 60 mg capsule,delayed 60 mg PO HS 05/15/25 05/30/25 History release folic acid 1 mg tablet 1 mg PO DAILY #30 tabs 05/20/25 05/30/25 Rx prednisone 20 mg tablet See Rx Instructions .Route 05/20/25 05/30/25 Rx .COMPLEX #90 tabs hydrocortisone 2.5 % topical cream 1 applic topical BID Hemmorrhoids 05/30/25 05/30/25 History with perineal applicator inulin-sorbitol 2 gram chewable 1 tab PO DAILY 05/30/25 05/30/25 History tablet (Fiber Supplement (inulin)) trazodone 100 mg tablet 100 mg PO HS 05/30/25 05/30/25 History Patient History Medical History Suicidal ideations Depression Idiopathic thrombocytopenic purpura (03/29/11) Surgical History Hx of removal of cyst Posterior to ear. Social History Smoking Status: Never smoker Second Hand Exposure: No; Do You Dip or Chew Tobacco: No; Hx Alcohol Use: Yes Alcohol type: beer Hx Substance Use: Yes Last Used Substance: Days (ago) Last Used Substance Other:: last night Preferred Language: Dominican Communication Ability: Effective Cardiac Cath Rn Required: No Beliefs That Will Affect Care: None Current Living Situation: Alone Current Living Situation Comment: Pt. lives in apartment alone Feels Safe at Home: Yes Gender Identity: Nonbinary Assistive Devices: None Results & Data Vital Signs (Past 12 Hours) Vital Signs Temp Pulse Pulse Resp BP Pulse Ox O2 Del Method 05/31/25 08:26 36.4 C L 100 H 20 100/67 100 Room Air 05/31/25 08:26 76 05/31/25 03:46 36.5 C 94 H 18 100/63 97 Room Air 05/30/25 23:42 36.5 C 71 20 112/60 96 Room Air 05/30/25 21:43 84
--- NOTE | 2025-05-31 13:38 | Hospitalist Progress Note ---
Date of Service May 31, 2025 Assessment & Plan (1) Autoimmune hemolytic anemia: (2) JEFFREY (generalized anxiety disorder): (3) Symptomatic anemia: Plan 30 year old male with recent diagnosis of autoimmune hemolytic anemia (responded to Solu-Medrol + IVIG) presents to the ER with urine becoming darker and fatigue with hemoglobin 6.1. #Cold agglutinin symptomatic hemolytic anemia / elevated bilirubin Solu-Medrol 100mg IV given on admission, will increase to 1000mg IV daily, pantoprazole while on high dose steroids IVIG ordered Transfuse 2 units packed RBCs when available and repeat hemoglobin following this Ordered IR guided bone marrow biopsy - discussed with IR and will schedule for but possibly fit in sooner than this - patient request pain medication to be given at that time #Elevated AST/ALT - appears to have increased after initial treatment started ?related to steatohepatitis with IVIG treatment + clearance of hemoglobin in liver Discussed with Dr Chow and will get US liver #Anxiety Continue duloxetine and trazodone VTE Prophylaxis - low risk Disposition - continue on med/tele Admission and Anticipated Discharge Date Admission Date: May 30, 2025 Subjective Frustrated with length of time to get blood. We discussed no advantage of being transferred to tertiary care center unless failing conventional therapy and previously responded to steroids and IVIG. Notes fatigue, lightheadedness and dark urine. Physical Exam Constitutional: + morbidly obese Respiratory: normal respiratory effort, lungs clear to auscultation Cardiovascular: RRR, no murmur, no edema Skin: + jaundice and + pallor Results & Data Results & Data Vital Signs (Past 12 Hours) Vital Signs Temp Pulse Pulse Resp BP Pulse Ox O2 Del Method 05/31/25 11:22 36.6 C 100 H 18 119/75 97 Room Air 05/31/25 08:26 36.4 C L 100 H 20 100/67 100 Room Air 05/31/25 08:26 76 05/31/25 03:46 36.5 C 94 H 18 100/63 97 Room Air PG Care Time/CCT Total # of Minutes Spent Total Time Spent with Patient: Total time spent is greater than 50% in coordination of care (as documented) at patient's floor/unit and/or counseling patient: Coding Level of Care Code 54329 SUB INP/OBS CARE 2/35MIN Diagnoses Autoimmune hemolytic anemia D59.10 JEFFREY (generalized anxiety disorder) F41.1 Symptomatic anemia D64.9
[2025-05-31 15:00] LABS: Alanine Aminotransferase 200.0 U/L (7-52); Albumin Level 3.0 gm/dl (3.4-5.0); Alkaline Phosphatase 62.0 U/L (34-104); Bilirubin,Total 2.6 mg/dl (0.2-1.0); Total Protein 6.6 gm/dl (6.0-8.3)
[2025-05-31] MEDS ORDERED: Octagam 10% IVIG 10 gram bottle IV SCH (17:00)
[2025-05-31] MEDS ORDERED: Nursing to Pharmacy Communication SCH (17:45)
[2025-05-31] MEDS ORDERED: Octagam 10% IVIG 20 gram bottle IV SCH ×2 (18:00)
[2025-05-31] MEDS ORDERED: SODIUM CHLORIDE 0.9% 100 ML IV PRN (18:17)
[2025-06-01 01:21] LABS: Hematocrit (blood only) 23.1 % (42.0-52.0); Hemoglobin 7.9 g/dl (14.0-18.0)
[2025-06-01] MEDS: Octagam 10% IVIG 10 gram bottle IV SCH (02:04)
--- NOTE | 2025-06-01 02:36 | Ultrasound Report ---
EXAM: US liver CLINICAL HISTORY: elevated AST/ALT TECHNIQUE: Limited ultrasound of the right upper quadrant was performed in grayscale and Doppler. Multiple images were obtained in transverse and longitudinal planes. COMPARISON: PREV CT 05/17/25 as per [facility]. No image or report provided FINDINGS: Liver: Liver size: The liver appears enlarged in size, measuring 21 cm, showing increased parenchymal echogenicity, representing fatty liver. Fat-sparing areas are seen adjacent to the gallbladder. No evidence of other focal lesions, cysts, or masses. Hepatic vasculature appears normal. Gallbladder: Gallbladder size: Gallbladder is visualized and appears normal in size and shape. No gallstones, wall thickening, or pericholecystic fluid noted. Wall thickness measuring 1.2 mm. No evidence of gallbladder wall edema or signs of acute cholecystitis. Morton's sign is negative. Biliary Tree: Common bile duct diameter: [3.4 mm]. The common bile duct is within normal limits in caliber and not dilated. No evidence of choledocholithiasis or biliary obstruction. Pancreas: The pancreas is not well visualized due to overlying bowel gas. Right kidney: The visualized right kidney appears unremarkable. No evidence of hydronephrosis. IMPRESSION: 1. Enlarged fatty liver. 2. The pancreas is not well visualized due to overlying bowel gas. 3. No other significant abnormality was seen. Electronically signed by Akash Arzate 06-01-2025 02:35 AM
[2025-06-01] MEDS: Octagam 10% IVIG 20 gram bottle IV SCH (03:02)
[2025-06-01 07:02] LABS: Alanine Aminotransferase 217.0 U/L (7-52); Albumin Globulin Ratio 0.7 (0.9-2); Albumin Level 3.0 gm/dl (3.4-5.0); Alkaline Phosphatase 55.0 U/L (34-104); Anion Gap 4.0 (3-11); Bilirubin,Total 2.1 mg/dl (0.2-1.0); Blood Urea Nitrogen 23.0 mg/dl (6-23); Calcium 8.4 mg/dl (8.6-10.3); Carbon Dioxide 27.0 mmol/L (21-32); Chloride 101.0 mmol/L (98-107); Creatinine Clr Calc Pharmacy 276.8 ml/min; Globulin 4.4 gm/dl (2.5-4.0); Glucose 141.0 mg/dl (70-99(Fasting)); Potassium 3.9 mmol/L (3.5-5.1); Sodium 132.0 mmol/L (136-145); Total Protein 7.4 gm/dl (6.0-8.3)
[2025-06-01 07:33] LABS: INR 1.0 (0.9-1.1); Prothrombin Time 11.1 Seconds (9.0-12.0)
[2025-06-01 07:34] LABS: Hematocrit (blood only) 19.1 % (42.0-52.0); Hemoglobin 6.3 g/dl (14.0-18.0); Mean Corpuscular Hemoglobin 31.3 pg (25.0-34.0); Mean Corpuscular Volume 95.0 fL (80.0-100.0); Platelet Count 140 K/uL (130-400); RDW Standard Deviation 66.3 fL (36.4-46.3); Red Blood Count 2.01 M/uL (4.70-6.10); White Blood Count 11.34 K/ul (4.8-10.8)
[2025-06-01] MEDS ORDERED: SODIUM CHLORIDE 0.9% 100 ML IV PRN (08:05)
--- NOTE | 2025-06-01 19:37 | Hospitalist Progress Note ---
Date of Service June 01, 2025 Assessment & Plan (1) Autoimmune hemolytic anemia: (2) JEFFREY (generalized anxiety disorder): (3) Symptomatic anemia: Plan 30 year old male with recent diagnosis of autoimmune hemolytic anemia (responded to Solu-Medrol + IVIG) presents to the ER with urine becoming darker and fatigue with hemoglobin 6.1. #Cold agglutinin symptomatic hemolytic anemia / elevated bilirubin Continue Solu-Medrol 1000mg IV, pantoprazole while on high dose steroids given history of GERD Continue IVIG as ordered by hematology 2 units transfused, Hgb 6.3, additional unit to be given and will order two more from [place] although decrease in bilirubin is reassuring for reduction in hemolysis, will get LDH in AM Ordered IR guided bone marrow biopsy - discussed with IR and planned for tomorrow 9AM, NPO after midnight Appreciate hematology management #Elevated AST/ALT - appears to have increased after initial treatment started ?related to steatohepatitis with IVIG treatment + clearance of hemoglobin in liver US liver with fatty liver disease (previously known from CT imaging) Acute hepatitis panel on 05/17 negative for A/B/C Recommend following up with hepatology on discharge #Anxiety Continue duloxetine and trazodone VTE Prophylaxis - low risk, continue to encourage ambulation Disposition - continue on med/tele Admission and Anticipated Discharge Date Admission Date: May 30, 2025 Subjective Feeling much improved. Still with some mild lightheadedness on standing. Physical Exam Constitutional: + morbidly obese Respiratory: normal respiratory effort, lungs clear to auscultation Cardiovascular: RRR, no murmur, no edema Skin: no jaundice and no pallor (resolved) Results & Data Results & Data Vital Signs (Past 12 Hours) Vital Signs Temp Pulse Pulse Resp BP BP BP 06/01/25 18:41 96 H 06/01/25 17:00 37.2 C 79 16 138/73 06/01/25 15:57 36.6 C 83 18 132/78 06/01/25 12:00 36.5 C 77 14 120/74 06/01/25 11:00 36.4 C L 77 14 128/76 06/01/25 10:00 36.5 C 79 16 104/66 06/01/25 09:00 36.3 C L 68 14 116/71 06/01/25 09:00 62 06/01/25 08:34 36.4 C L 70 14 121/82 06/01/25 08:27 36.3 C L 67 18 125/69 Pulse Ox O2 Del Method 06/01/25 18:41 06/01/25 17:00 97 Room Air 06/01/25 15:57 95 Room Air 06/01/25 12:00 98 Room Air 06/01/25 11:00 99 Room Air 06/01/25 10:00 Room Air 06/01/25 09:00 99 Room Air 06/01/25 09:00 06/01/25 08:34 97 06/01/25 08:27 99 Room Air PG Care Time/CCT Total # of Minutes Spent Total Time Spent with Patient: Total time spent is greater than 50% in coordination of care (as documented) at patient's floor/unit and/or counseling patient: Coding Level of Care Code 34948 SUB INP/OBS CARE 2/35MIN Diagnoses Autoimmune hemolytic anemia D59.10 JEFFREY (generalized anxiety disorder) F41.1 Symptomatic anemia D64.9
[2025-06-02 06:53] LABS: Hematocrit (blood only) 24.1 % (42.0-52.0); Hemoglobin 7.8 g/dl (14.0-18.0); Mean Corpuscular Hemoglobin 30.8 pg (25.0-34.0); Mean Corpuscular Volume 95.3 fL (80.0-100.0); Platelet Count 139 K/uL (130-400); RDW Standard Deviation 66.6 fL (36.4-46.3); Red Blood Count 2.53 M/uL (4.70-6.10); White Blood Count 9.15 K/ul (4.8-10.8)
[2025-06-02 07:22] LABS: Alanine Aminotransferase 235.0 U/L (7-52); Albumin Globulin Ratio 0.5 (0.9-2); Albumin Level 3.2 gm/dl (3.4-5.0); Alkaline Phosphatase 63.0 U/L (34-104); Anion Gap 3.0 (3-11); Bilirubin,Total 1.2 mg/dl (0.2-1.0); Blood Urea Nitrogen 19.0 mg/dl (6-23); Calcium 8.5 mg/dl (8.6-10.3); Carbon Dioxide 27.0 mmol/L (21-32); Chloride 103.0 mmol/L (98-107); Creatinine Clr Calc Pharmacy 306.8 ml/min; Globulin 5.9 gm/dl (2.5-4.0); Glucose 111.0 mg/dl (70-99(Fasting)); Potassium 4.2 mmol/L (3.5-5.1); Sodium 133.0 mmol/L (136-145); Total Protein 9.1 gm/dl (6.0-8.3)
--- NOTE | 2025-06-02 08:08 | Hospitalist Progress Note ---
Date of Service June 02, 2025 Assessment & Plan (1) Warm autoimmune hemolytic anemia: (2) Transaminasemia: (3) Metabolic dysfunction-associated steatotic liver disease (MASLD): (4) GERD (gastroesophageal reflux disease): Plan In summary this is a 30-year-old male who was admitted for symptomatic anemia in the setting of warm autoimmune hemolytic anemia #Warm autoimmune hemolytic anemia, refractory to corticosteroid therapy // Symptomatic anemia due to hemolysis Patient's initial presenting hemoglobin was less than 6.0; they are now status post 3 units PRBC with maintained hemoglobin level of 7.8 without associated symptoms; they were anticipated to undergo bone marrow biopsy on 06/02 to rule out additional causes however due to the patient's body habitus a longer aspiration needle is required, and will not be available until 06/03, for this reason the patient will remain admitted until that time Administer Methylprednisolone 1 g IV one-time final dose on 06/02 Reassess hemoglobin and hematocrit on 06/03 Anticipate bone marrow biopsy 06/03, to be n.p.o. at 0000 hrs. on 06/03 Hematology/oncology consulted; Recommending initiation of rituximab in the outpatient setting, to coordinate scheduling the patient's first infusion around the time of discharge #MASLD // Transaminasemia Patient with known history of metabolic associated steatotic liver disease; elevated transaminases during hospitalization with most recent AST 235, ALT 258; hepatitis panel was unremarkable; suspect this is likely an exacerbation of the patient's underlying chronic disease in the setting of metabolic demand from their hemolytic anemia Follow daily hepatic function panel Anticipate referral to hepatology upon discharge Admission and Anticipated Discharge Date Admission Date: May 30, 2025 Subjective Mr. Simons is a 30-year-old male whose active medical conditions include warm autoimmune hemolytic anemia, gastroesophageal reflux disease without associated complication, severe major depressive disorder with associated anxiety among other chronic medical conditions who presented to the [facility] on 05/30 due to progressive generalized fatigue and malaise found to have progressive anemia and recurrent exacerbation of their autoimmune hemolytic anemia. No acute overnight events; the patient was anticipated to undergo bone marrow biopsy on 06/02 however this was unable to be performed due to inadequate needle length for biopsy. The patient otherwise feels generally well today, with some residual fatigue though this has improved with her transfusions during her hospitalization Review of Systems Review of Systems: Review of constitutional, cardiovascular, pulmonary, gastrointestinal, genitourinary systems was unremarkable Physical Exam Physical Exam: General: Adult male in no acute distress Vital Signs: Reviewed HEENT: Mild conjunctival pallor; extraocular motion intact and pupils equally round and reactive to light; tacky mucous membranes Neck: [] Pulmonary: Symmetric reduced chest wall rise, lungs are clear to auscultation bilaterally Cardiovascular: Regular rate and rhythm without murmurs, rubs, or gallops; bilateral radial and posterior tibial pulse 2+; no notable lower extremity edema; brisk capillary refill Neurologic: Cranial nerves II through XII grossly intact Results & Data Results & Data Vital Signs (Past 12 Hours) Vital Signs Temp Pulse Pulse Resp BP BP Pulse Ox 06/02/25 07:56 69 06/02/25 07:40 36.7 C 82 18 134/78 97 06/02/25 04:06 36.4 C L 52 L 20 104/67 96 06/01/25 22:19 59 L 06/01/25 22:10 36.7 C 66 20 131/65 96 O2 Del Method 06/02/25 07:56 06/02/25 07:40 Room Air 06/02/25 04:06 Room Air 06/01/25 22:19 06/01/25 22:10 Room Air Laboratory Results Hemoglobin trend 7.8, 6.3, 7.9, 5.3; leukocytosis has resolved; LDH downtrending to 258 from 397; AST trend 45, 51, 53 and ALT trend 235, 217; now elevated total protein 9.1 from 7.4 Diagnostic Findings Hepatic ultrasound remarkable for steatosis otherwise without remarkable findings PG Care Time/CCT Total # of Minutes Spent Total Time Spent with Patient: Total time spent is greater than 50% in coordination of care (as documented) at patient's floor/unit and/or counseling patient: Coding Level of Care Code 64211 SUB INP/OBS CARE 3/50MIN Diagnoses Warm autoimmune hemolytic anemia D59.11 Transaminasemia R74.01 Metabolic dysfunction-associated steatotic liver disease (MASLD) K76.0 Gastroesophageal reflux disease, unspecified whether esophagitis present K21.9 Esophagitis presence: esophagitis presence not specified (4) GERD (gastroesophageal reflux disease) Esophagitis presence: esophagitis presence not specified Qualified Code(s): K21.9 - Gastro-esophageal reflux disease without esophagitis
--- NOTE | 2025-06-02 11:52 | CT Scan Report ---
LIMITED PELVIC CT INDICATION: Bone marrow biopsy requested FINDINGS: Limited axial imaging of the pelvis was performed prior to bone marrow biopsy. Measurement from skin to the posterior left iliac cortex was 11 cm. The patient will need rescheduled when a 15 c m needle is available. IMPRESSION: Limited pelvic CT as detailed above. Electronically signed by: Vasile Grimaldo M.D. 06/02/2025 11:57 AM
[2025-06-02] MEDS: methylPREDNISolone 1,000 MG in SODIUM CHLORIDE 0.9% 250 ML IV ONE (13:00)
[2025-06-03 07:07] LABS: Hematocrit (blood only) 23.9 % (42.0-52.0); Hemoglobin 7.9 g/dl (14.0-18.0); Immature Granulocytes # (auto) 0.13 K/uL (0.01-0.20); Immature Granulocytes % (auto) 1.7 %; Mean Corpuscular Hemoglobin 31.7 pg (25.0-34.0); Mean Corpuscular Volume 96.0 fL (80.0-100.0); Platelet Count 119 K/uL (130-400); RDW Standard Deviation 73.3 fL (36.4-46.3); Red Blood Count 2.49 M/uL (4.70-6.10); White Blood Count 7.87 K/ul (4.8-10.8)
--- NOTE | 2025-06-03 07:35 | Hospitalist Progress Note ---
Date of Service June 03, 2025 Assessment & Plan Admission and Anticipated Discharge Date Admission Date: May 30, 2025 Results & Data Results & Data Vital Signs (Past 12 Hours) Vital Signs Temp Pulse Pulse Resp BP BP Pulse Ox 06/03/25 07:28 55 L 06/03/25 03:54 36.5 C 76 20 115/69 96 06/02/25 23:45 52 L 06/02/25 23:19 36.7 C 74 20 144/72 H 97 06/02/25 19:40 36.8 C 84 18 123/74 95 O2 Del Method 06/03/25 07:28 06/03/25 03:54 Room Air 06/02/25 23:45 06/02/25 23:19 Room Air 06/02/25 19:40 Room Air PG Care Time/CCT Total # of Minutes Spent Total Time Spent with Patient: Total time spent is greater than 50% in coordination of care (as documented) at patient's floor/unit and/or counseling patient: Coding
[2025-06-03 07:40] LABS: Alanine Aminotransferase 218.0 U/L (7-52); Albumin Globulin Ratio 0.6 (0.9-2); Albumin Level 3.1 gm/dl (3.4-5.0); Alkaline Phosphatase 55.0 U/L (34-104); Anion Gap 4.0 (3-11); Bilirubin,Total 1.4 mg/dl (0.2-1.0); Blood Urea Nitrogen 22.0 mg/dl (6-23); Calcium 8.5 mg/dl (8.6-10.3); Carbon Dioxide 28.0 mmol/L (21-32); Chloride 103.0 mmol/L (98-107); Creatinine Clr Calc Pharmacy 312.7 ml/min; Globulin 5.2 gm/dl (2.5-4.0); Glucose 116.0 mg/dl (70-99(Fasting)); Potassium 4.3 mmol/L (3.5-5.1); Sodium 135.0 mmol/L (136-145); Total Protein 8.3 gm/dl (6.0-8.3)
[2025-06-03 08:03] LABS: Anisocytosis Present; Bone Marrow Smear SLHOLD; Macrocytosis Present; Polychromasia 1+
[2025-06-03] MEDS ORDERED: MIDAZOLAM HCL 1 MG/ML 2ML VIAL ONE (10:47)
[2025-06-03] MEDS ORDERED: DexMEDEtomidine HCL IV 100 MCG/ML VIAL IV ONE (10:47)
[2025-06-03] MEDS ORDERED: PROPOFOL IV EMULSION 10 MG/ML 20 ML VIAL IV ONE (10:47)
[2025-06-03] MEDS ORDERED: LIDOCAINE 2% 2 ML VIAL/AMP(20MG/ML) INFIL ONE (10:47)
[2025-06-03] MEDS ORDERED: KETAMINE HCL 10MG/ML SYR ONE (10:48)
--- NOTE | 2025-06-03 11:20 | Anesthesiology Consultation ---
Date of Service June 03, 2025 Assessment & Plan Chart Review Chart Review: Acceptable Risk for Surgery and Patient NOT seen in Pre Admission Testing Consults Requested none ASA ASA3 Proposed Anesthesia Anesthesia Type: MAC Risk / Benefits Reviewed With: PT / POA / Parent / Guardian, Accepts Plan and Informed Consent Obtained History Surgery Operation Date: 06/03/25 11:[address] Scan Bone Marrow Biopsy with Anesthesia Sedation - ROBERT Gimenez Height/Weight Height: 5 ft 11 in Weight: 178.5 kg Allergies Allergy/AdvReac Type Severity Reaction Status Date / Time NSAIDS (Non-Steroidal AdvReac NO NSAIDS Verified 05/31/25 07:39 Anti-Inflamma PER [id number] ADM-DR BECERRA (ITP) aspirin (thrombocytopenia) AdvReac platelet Uncoded 05/31/25 07:39 function suppression Medications Home Medications Medication Instructions Recorded Confirmed Last Taken duloxetine 30 mg capsule,delayed 30 mg PO HS 05/15/25 05/30/25 05/29/25 release duloxetine 60 mg capsule,delayed 60 mg PO HS 05/15/25 05/30/25 05/29/25 release folic acid 1 mg tablet 1 mg PO DAILY #30 tabs 05/20/25 05/30/25 05/29/25 prednisone 20 mg tablet See Rx Instructions .Route 05/20/25 05/30/25 05/29/25 .COMPLEX #90 tabs hydrocortisone 2.5 % topical cream 1 applic topical BID Hemmorrhoids 05/30/25 05/30/25 05/29/25 with perineal applicator inulin-sorbitol 2 gram chewable 1 tab PO DAILY 05/30/25 05/30/25 05/29/25 tablet (Fiber Supplement (inulin)) trazodone 100 mg tablet 100 mg PO HS 05/30/25 05/30/25 05/29/25 Active Medications Generic Name Dose Route Start Last Admin Trade Name Freq PRN Reason Stop Dose Admin Duloxetine HCl 60 mg 05/30/25 21:00 06/02/25 20:22 Duloxetine Hcl 60 Mg Cap PO 06/29/25 20:59 60 mg HS MAGGI Administration Duloxetine HCl 30 mg 05/30/25 21:00 06/02/25 20:22 Duloxetine Hcl 30 Mg Cap PO 06/29/25 20:59 30 mg HS MAGGI Administration Folic Acid 1 mg 05/31/25 09:00 06/02/25 11:20 Folic Acid 1 Mg Tab PO 06/30/25 08:59 1 mg DAILY MAGGI Administration Pantoprazole Sodium 40 mg 05/31/25 14:30 06/02/25 11:20 Pantoprazole 40 Mg Tab PO 06/30/25 14:29 40 mg QAM MAGGI Administration Trazodone HCl 100 mg 05/30/25 21:00 06/02/25 20:22 Trazodone Hcl 100 Mg Tab PO 06/29/25 20:59 100 mg HS MAGGI Administration NPO Date Last Intake of Fluids: 06/02/25 Time Last Intake of Fluids: 20:00 Date Last Intake of Solids: 06/02/25 Time Last Intake of Solids: 20:00 Past Medical History Medical History Suicidal ideations Depression Idiopathic thrombocytopenic purpura (03/29/11) Exercise / Class Metabolic Activity III < 4 Walking/Shop/Light housework Past Surgical History Surgical History Hx of removal of cyst Posterior to ear. Past Anesthesia History No Hx of Anesthesia Complications and No Family Hx of Anesthesia Complications History of PONV No Hx of PONV and No Hx of Motion Sickness Social History Smoking Status: Never smoker Do You Dip or Chew Tobacco: No Hx Alcohol Use: Yes Alcohol type: beer alcohol intake frequency: a few times a month Hx Substance Use: Yes substance use type: marijuana Last Used Substance: Days (ago) Last Used Substance Other:: last night Review of Systems ROS Unobtainable: All systems reviewed & are unremarkable except as noted in HPI & below Physical Exam Vital Signs Last Vital Signs Temp 36.3 C L 06/03/25 08:17 Pulse 70 06/03/25 08:17 Resp 18 06/03/25 08:17 BP 136/84 06/03/25 08:17 Pulse Ox 97 06/03/25 08:17 O2 Del Method Room Air 06/03/25 08:17 ENMT Mouth: no TMJ abnormality Thyromental Distance: > or= 3.5 Finger Breadths Mallampati Class: II Neck normal visual inspection and trachea midline; neck extension not limited Respiratory normal respiratory effort Auscultation: lungs clear to auscultation bilaterally Cardiovascular Rate/Rhythm: regular rate and regular rhythm Heart Sounds: no murmur Musculoskeletal Spine: normal cervical ROM Extremities: full ROM of extremities Neurologic moves all extremities Psychiatric Orientation: alert and oriented x 3 Testing Laboratory Results 06/03/25 06:05 06/03/25 06:05 PT 11.1 Seconds (9.0-12.0) 06/01/25 06:09 INR 1.0 (0.9-1.1) 06/01/25 06:09 Blood Type B Positive 05/30/25 11:00 Antibody Screen POSITIVE A 05/30/25 11:00
[2025-06-03] MEDS: LACTATED RINGER'S 1,000 ML IV SCH (11:21)
[2025-06-03 13:44] VITALS: RESP 16; TEMP 98.2; O2SAT 97
[2025-06-03 14:06] VITALS: BP 123/74; PULSE 61
--- NOTE | 2025-06-03 14:11 | Anesthesiology Progress Note ---
Date of Service June 03, 2025 Anesthesia Post Procedure Vital Signs Vital Signs: Temp Pulse Pulse Pulse Resp BP BP 06/03/25 14:04 36.8 C 61 73 16 110/65 123/74 06/03/25 13:43 36.8 C 73 16 110/65 06/03/25 13:00 36.9 C 64 20 115/70 06/03/25 12:50 36.5 C 61 17 112/64 06/03/25 12:40 63 17 114/69 06/03/25 12:30 36.8 C 65 19 113/59 L 06/03/25 11:15 36.9 C 69 20 132/73 06/03/25 08:17 36.3 C L 70 18 136/84 06/03/25 07:28 55 L 06/03/25 03:54 36.5 C 76 20 115/69 06/02/25 23:45 52 L 06/02/25 23:19 36.7 C 74 20 144/72 H 06/02/25 19:40 36.8 C 84 18 123/74 06/02/25 15:25 36.8 C 74 18 151/84 H 06/02/25 14:52 80 Pulse Ox O2 Del Method 06/03/25 14:04 97 06/03/25 13:43 97 Room Air 06/03/25 13:00 97 Room Air 06/03/25 12:50 96 Room Air 06/03/25 12:40 97 Room Air 06/03/25 12:30 95 Room Air 06/03/25 11:15 100 Room Air 06/03/25 08:17 97 Room Air 06/03/25 07:28 06/03/25 03:54 96 Room Air 06/02/25 23:45 06/02/25 23:19 97 Room Air 06/02/25 19:40 95 Room Air 06/02/25 15:25 96 Room Air 06/02/25 14:52 Pain Intensity Chest: Pain Intensity: 2 Transfer of Care Handoff Completed per policy Notes Mental Status: alert / awake / arousable Patient Amnestic to Procedure: Yes Nausea / Vomiting: adequately controlled Pain: adequately controlled Airway Patency, RR, SpO2: stable & adequate BP & HR: stable & adequate Hydration State: stable & adequate Anesthetic Complications: no major complications apparent and Pt Satisfied with anesthetic care
--- NOTE | 2025-06-03 14:15 | CT Scan Report ---
CT guided bone marrow biopsy INDICATION: Pancytopenia PROCEDURE: Procedure and risks were explained. Informed consent was obtained. A final timeout was com pleted. The patient was placed prone on the CT exam table. The left gluteal region was prepped and dr aped in sterile fashion. 1% lidocaine was utilized for skin anesthesia. The patient received moderate anesthesia care during the procedure. Utilizing CT guidance, an 11-gauge bone biopsy needle was advanced into the left iliac bone. Multiple aspirates and 1 bone core was obtained and given to the lab. The needle was removed and Band-Aid jerica lied. The patient tolerated the procedure well. Vital signs will be monitored postprocedure. IMPRESSION: Bone marrow biopsy as above. Performed, dictated, and signed by Kodak Corbin PA-C; to be co-signed by Dr. Vasile Grimaldo. Electronically signed by: Vasile Grimaldo M.D. 06/03/2025 2:41 PM
--- NOTE | 2025-06-03 15:47 | Discharge Summary ---
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 // Symptomatic anemia due to hemolysis Patient's initial presenting hemoglobin was less than 6.0; they are now status post 3 units PRBC with maintained hemoglobin level of 7.8 without associated symptoms; they were anticipated to undergo bone marrow biopsy on 06/02 to rule out additional causes however due to the patient's body habitus a longer aspiration needle is required, and will not be available until 06/03, for this reason the patient will remain admitted until that time Bone marrow biopsy completed 06/03 without complication, results pending at the time of discharge Hematology/oncology consulted; plan for initiation of rituximab infusions beginning 06/04 #MASLD // Transaminasemia Patient with known history of metabolic associated steatotic liver disease; elevated transaminases during hospitalization with most recent AST 235, ALT 258; hepatitis panel was unremarkable; suspect this is likely an exacerbation of the patient's underlying chronic disease in the setting of metabolic demand from their hemolytic anemia Referred to hepatology upon discharge Admission HPI Per Admitting Provider Pt is a 30 y/o male with pmh of autoimmune hemolytic anemia, anxiety, depression, who presents with chest pain, palpitations, and SOB. He also noticed dark urine. Pt was found to have heme of 6.1 and with retic count of 12.8. Pt is being treated by Dr. Chow for autoimmune hemolytic anemia and recent had IVIG and blood transfusions. The case was discussed with Dr. Chow again today in the ER who recommended solu-medrol 1000mg, IVIG and admission for further treatment with PRBC transfusion and bone marrow biopsy. Discharge Exam General: Adult male in no acute distress Vital Signs: Reviewed HEENT: Mild conjunctival pallor; extraocular motion intact and pupils equally round and reactive to light; tacky mucous membranes Pulmonary: Symmetric reduced chest wall rise, lungs are clear to auscultation bilaterally Cardiovascular: Regular rate and rhythm without murmurs, rubs, or gallops; bilateral radial and posterior tibial pulse 2+; no notable lower extremity edema; brisk capillary refill Neurologic: Cranial nerves II through XII grossly intact Discharge Plan Discharge Items Patient Disposition: Home - Self-Care Reason For Visit: AUTOIMMUNE HEMOLYTIC ANEMIA Discharge Diagnosis: Steroid-resistant warm autoimmune hemolytic anemia Condition on Discharge: Serious Activity: Per Instructions section Non-emergency contact: Primary Care Provider and Oncologist Call non-emergency contact if: you have any medication questions and your symptoms worsen Follow-up/Referrals: David Castro PA-C [Primary Care Provider] - (Please call your primary care provider to schedule a hospital follow-up appointment within 7-10 days.) Kourtney Chow MD [Physician] - Kerri Stuart DO [Physician] - (MASLD; transaminasemia i/s/o warm autoimmune hemolytic anemia; establishing care after hospitalization) Diet: Regular Fluids: 2000ml (8 cups) Addtl Attending Provider Instructions: You were admitted to [facility] for exacerbation of your previously diagnosed warm autoimmune hemolytic anemia which appears to be steroid resistant. He required multiple blood transfusions to replace diminished blood counts at your initial presentation which have been maintained. Due to the exacerbation of your symptoms and condition, a bone marrow biopsy was pursued on 06/02 those results currently pending. Given the resolution of your blood counts, other laboratory findings, associated symptoms, and after further discussion with hematology the plan for discharge on 06/02 with close follow-up on 06/03 in the outpatient setting with hematology for initiation of rituximab as a secondary line of management for this condition. Thank you for choosing [facility] as your healthcare provider. Pending Studies at Discharge: Yes Studies:: Bone marrow pathology Stand-Alone Forms: My [facility] Medications and DC Order Prescriptions: Continued duloxetine 30 mg capsule,delayed release(DR/EC) 30 mg PO HS Rx Instructions: Take w/ 60mg to equal 90mg at bedtime. duloxetine 60 mg capsule,delayed release(DR/EC) 60 mg PO HS Rx Instructions: Take w/ 30mg to equal 90mg at bedtime. folic acid 1 mg tablet 1 mg PO DAILY Qty: 30 0RF prednisone 20 mg tablet See Rx Instructions .ROUTE .COMPLEX Qty: 90 0RF Rx Instructions: Take 3 tablets (60 mg) twice daily until dosage is down titrated by your catering convention services manager hydrocortisone 2.5 % cream with perineal applicator 1 applic topical BID trazodone 100 mg tablet 100 mg PO HS Fiber Supplement (inulin) 2 gram Tablet,Chewable 1 tab PO DAILY Discharge Orders: Discharge Order (Routine); Ordered 06/03/25 Ordered By: Blaise Kim Admission Data Admit Date/Time: 05/30/25 14:39 Attending Provider: Blaise Kim Admit Provider: Mich Oliver Primary Care Provider: David Castro Other Providers: Jordi Davila; Kourtney Chow; Sulma Kaufman; Francesca Gu; Libertad Smyth; Samantha Parker; Gregorio Westfall; Kd Jeffries; Scottie Morrison; Percy Saab; Lillian Montana; Rafael Atkins; Jaren Sanford; Lawrence Barnhart; Mary Guerra; Levy Em; Cheryl Em; Jack Cordova; Kerri Beckford; Anish Batista; Eulalia Dowling; Toshia Hernandez; Vasile Salgado; Luz Elena Pruitt; Georgette Fowler; Diana Avendano; Shaniqua Faulkner; Reggie Faulkner V; Be Carrasco; Francesca Sood; Terrance Galan; Melody Alarcon; Reggie Mora; Tyler Guerra; Blaies Cherry; Roya Raman; Gerda Martins; Reggie Beaver; Samy Dial; Melissa Dunlap; Valente Corral; Luz Vitale; Olga Nunes; Shahzad Fuller; Jose Guadalupe Mathur; Maria Moody; Scottie Sheppard; Afshan Coulter; Rodolfo Hutson; Timmy Franco; Gregorio Brush Jr; Ksenia Edmonds; Kathleen Velázquez; Sara Davis; Vasile Patton; Georges Camarena; Kathleen Bernal; Pravin Wesley; eLnny Mcgovern; Isaac Mathews; Dmitry Way; Coby Vera; Terese Lopez; Mariah Paulson; Felicia Bain; Gloria Fuchs; Raymond Campbell Jr; Josephine Lu; Luz Elena Singh; Alfred Garrison; Freda Cabrera; Tova Benedict; Letitia Garcia; Shila Guerra; Mario Shah Other Interventions: Discharge Summary Assessment (RN) Last Done: 06/03/25 14:04 Hospital Stay Data Consultations 05/30/25 12:48 ED Decision to Admit Stat 05/30/25 14:37 Consult Hematology Routine 06/02/25 11:26 Consult Anesthesiology Routine Procedures Performed Operation Date: 06/03/25 11:30 <No data on this case meets the specified criteria> Diagnostic Imagining Performed 06/01/25 US liver Routine 06/02/25 CT limited or localized study Urgent 06/03/25 08:13 IR bone marrow bx & asp Routine Pending Results Patient Have Any Pending Studies at Discharge: Yes Discharge Instructions Given to Patient (Per Discharging Provider) You were admitted to [facility] for exacerbation of your previously diagnosed warm autoimmune hemolytic anemia which appears to be steroid resistant. He required multiple blood transfusions to replace diminished blood counts at your initial presentation which have been maintained. Due to the exacerbation of your symptoms and condition, a bone marrow biopsy was pursued on 06/02 those results currently pending. Given the resolution of your blood counts, other laboratory findings, associated symptoms, and after further discussion with hematology the plan for discharge on 06/02 with close follow-up on 06/03 in the outpatient setting with hematology for initiation of rituximab as a secondary line of management for this condition. Thank you for choosing [facility] as your healthcare provider. Total Time Total Time Spent Total Time Spent (In Minutes): I personally spent 55 minutes in today's discharge including coordination of the patient's outpatient care with multiple subspecialists, discussion of the plan of care with the patient at bedside in addition to my history, review of systems, and physical exam Coding Level of Care Code 50005 INP/OBS DISCH >30 MIN Diagnoses Warm autoimmune hemolytic anemia D59.11 Transaminasemia R74.01 Metabolic dysfunction-associated steatotic liver disease (MASLD) K76.0 Gastroesophageal reflux disease, unspecified whether esophagitis present K21.9 Esophagitis presence: esophagitis presence not specified
== END 2025-06-03 14:37 | disposition home or self-care (01) | DRG 810 ==
LOC: ED 10:46 → SUATTDRO 14:39 → 2W 14:39

== ENCOUNTER 2025-06-17 14:59 | Inpatient (IN) ==
--- NOTE | 2025-06-17 16:46 | XRay Report ---
Clinical History: Dyspnea Technique: A frontal view of the chest was obtained Comparison is made to the prior examination dated 05/22/2025 Findings: There are no confluent pulmonary infiltrates. The heart size is within normal limits. No pleural effusion or pneumothorax is seen. There is no definite pulmonary nodule. No fracture is noted. No foreign body is seen Impression: No active disease Electronically signed by Aurelio Chua 06-17-2025 4:46 PM
[2025-06-17 17:17] LABS: Hematocrit (blood only) 20.7 % (42.0-52.0); Hemoglobin 6.9 g/dl (14.0-18.0); Mean Corpuscular Hemoglobin 34.7 pg (25.0-34.0); Mean Corpuscular Volume 104.0 fL (80.0-100.0); Platelet Count 154 K/uL (130-400); RDW Standard Deviation 84.3 fL (36.4-46.3); Red Blood Count 1.99 M/uL (4.70-6.10); White Blood Count 10.00 K/ul (4.8-10.8)
[2025-06-17 17:27] LABS: Alanine Aminotransferase 163.0 U/L (7-52); Albumin Globulin Ratio 1.3 (0.9-2); Albumin Level 3.9 gm/dl (3.4-5.0); Alkaline Phosphatase 89.0 U/L (34-104); Anion Gap 8.0 (3-11); Bilirubin,Total 3.1 mg/dl (0.2-1.0); Blood Urea Nitrogen 24.0 mg/dl (6-23); Calcium 8.7 mg/dl (8.6-10.3); Carbon Dioxide 25.0 mmol/L (21-32); Chloride 105.0 mmol/L (98-107); Creatinine Clr Calc Pharmacy 313.3 ml/min; Globulin 2.9 gm/dl (2.5-4.0); Glucose 134.0 mg/dl (70-99(Fasting)); Potassium 3.9 mmol/L (3.5-5.1); Sodium 138.0 mmol/L (136-145); Total Protein 6.8 gm/dl (6.0-8.3)
[2025-06-17 17:34] LABS: Anisocytosis Present; Immature Granulocytes # (auto) 0.47 K/uL (0.01-0.20); Immature Granulocytes % (auto) 4.7 %; Polychromasia 2+
--- NOTE | 2025-06-17 17:42 | Emergency Department Note ---
Impression & Plan Warm autoimmune hemolytic anemia, Tachycardia ED Provider Note Provider: Grady Butler MD CHIEF COMPLAINT: Dyspnea exertion, fatigue, hemolytic anemia HISTORY OF PRESENT ILLNESS: Patient is a 30-year-old gentleman past medical history of warm autoimmune hemolytic anemia, GERD, and MASLD presenting here today referred by cancer center due to developing fatigue and dyspnea exertion over the last several days. Has been following with them closely for CTA with the autoimmune hemic anemia. Had transfusion during last admission about 2 weeks ago. Is due for his third dose of rituximab tomorrow. Has been on 60 mg of prednisone recently decreased according to him several days ago. Denies syncope or bleeding. Denies chest pain. Again generalized weakness particular with exertion. Denies feeling short of breath laying here but with ambulation. States has had difficulty getting blood transfusion in the past as a take some time to find a correct blood type. Denies abdominal pain. PAST MEDICAL HISTORY: As noted above MEDICATIONS: Reviewed home medications SOCIAL HISTORY: PHYSICAL EXAM: GENERAL: alert and oriented in no acute distress on stretcher Head: normocephalic and atraumatic EYES: No injection, discharge or icterus. PERRL, EOMI. NECK: Trachea midline. Supple. ENT: Mucous membranes pink and moist. LUNGS: Airway patent. No retractions. Breath sounds clear with good air entry bilaterally. HEART: Regular tachycardic rate and rhythm. No chest wall tenderness ABDOMEN: Soft and non-tender, without guarding or rebound. SKIN: Acyanotic but somewhat pale yellow in color, warm, slightly diaphoretic, without rashes EXTREMITIES: Without swelling, tenderness or deformity NEUROLOGICAL: No focal deficits. No aphasia. No facial droop or slurred speech. Normal strength and tone in the extremities. Sensation to gross touch normal. Ambulatory. EK bpm sinus tachycardia. No PVC or PAC. No acute ST segment elevation or depression with QTc of 451. CONTINUOUS CARDIAC MONITORING: was ordered and showed a heart rate of 80s to 120s bpm in sinus tachycardia normal sinus rhythm Patient's laboratory studies and imaging reviewed. Differential includes Infection, dehydration, metabolic abnormality, hypo/hyperglycemia, electrolyte disturbance, anemia, hypoxia, cardiac sources, intracerebral event, toxicologic, neurologic, as well as other pathologies. IMPRESSION/MEDICAL DECISION MAKING: Somewhat complex history of warm hemolytic anemia following with hematology. Increase symptoms last several days. He is still on prednisone and has been on rituximab. Blood work here indicative of decreasing hemoglobin of 6.9. Platelets 154. No leukocytosis. No fever and denies other infectious symptoms. No severe electrolyte abnormalities with normal renal function. Bilirubin somewhat elevated 3.1 likely indicative of the hemolysis. Discussed with blood bank and he consented for blood and a unit of blood ordered. Will likely require extended period to get transfusion up to 24 hours or longer. Patient not an extremis. Patient stable on room air although is somewhat tachycardic. Troponin is sent and an LDH as well. Reached out discussed with Dr. Duckworth from hematology oncology regarding the situation. I discussed with hematology 1 g/kg of IVIG recommended tonight. They will consider additional IV steroids tomorrow. Will admit for pending transfusion and availability of blood given his antibodies/autoimmune condition to arrive from [facility]. Patient agreeable this plan. Discussed with pharmacy IVIG. Hospitalist was contacted. DIAGNOSIS: Warm body autoimmune hemolytic anemia, DAS/fatigue DISPOSITION: Hospitalist will evaluate Patient was agreeable with this plan. Critical Care I have personally spent 32 minutes of critical care time in the direct management of this patient. This includes bedside care, interpretation of diagnostic studies, and testing, discussion with consultants, patient, and family members, and other required patient management activities. These 32 minutes is in excess of all separately billable procedures. Past Med/Surg History Problem List (Updated 06/17/25 @ 23:11 by Grady Butler M.D.) Tachycardia (Acute) Acute dehydration (Acute) External bleeding hemorrhoids (Acute) Symptomatic anemia (Acute) Warm autoimmune hemolytic anemia (Acute) Metabolic dysfunction-associated steatotic liver disease (MASLD) (Acute) Transaminasemia (Acute) Warm autoimmune hemolytic anemia GERD (gastroesophageal reflux disease) (Chronic) Multinodular thyroid (Chronic) JEFFREY (generalized anxiety disorder) (Chronic) Major depressive disorder, recurrent, severe without psychotic features (Chronic) Vitamin D deficiency (Chronic) Medical History Suicidal ideations Depression Idiopathic thrombocytopenic purpura (03/29/11) Surgical History Hx of removal of cyst Posterior to ear. Social History Smoking Status: Never smoker Second Hand Exposure: No; Do You Dip or Chew Tobacco: No; Hx Alcohol Use: Yes Alcohol type: beer Hx Substance Use: Yes Last Used Substance: Days (ago) Last Used Substance Other:: last night Preferred Language: Slovak Communication Ability: Effective Barrel Reamer Required: No Beliefs That Will Affect Care: None Current Living Situation: Alone Current Living Situation Comment: Pt. lives in apartment alone Feels Safe at Home: Yes Gender Identity: Nonbinary Assistive Devices: None Allergies Allergies Allergy/AdvReac Type Severity Reaction Status Date / Time No Known Allergies Allergy Verified 06/17/25 20:23 Home Meds Home Medications Medication Instructions Recorded Confirmed duloxetine 30 mg capsule,delayed 30 mg PO HS 05/15/25 06/17/25 release duloxetine 60 mg capsule,delayed 60 mg PO HS 05/15/25 06/17/25 release inulin-sorbitol 2 gram chewable 1 tab PO DAILY 05/30/25 06/17/25 tablet (Fiber Supplement (inulin)) trazodone 100 mg tablet 100 mg PO HS 05/30/25 06/17/25 ondansetron 8 mg disintegrating 8 mg PO Q8H PRN NAUSEA/VOMITING 06/17/25 06/17/25 tablet prednisone 20 mg tablet 60 mg PO DAILY 06/17/25 06/17/25 prochlorperazine maleate 10 mg 10 mg PO Q6H PRN NAUSEA/VOMITING 06/17/25 06/17/25 tablet Previous Rx's Medication Instructions Recorded folic acid 1 mg tablet 1 mg PO DAILY #30 tabs 05/20/25 Results & Data (ED) Vital Signs Vital Signs - 24 hr 06/17/25 15:08 06/17/25 17:13 06/17/25 18:50 Temperature 36.1 C L Temperature Source Temporal Artery Scan Pulse Rate 118 H 104 H Pulse Rate [Apical] Pulse Rate from SpO2 Sensor Respiratory Rate 18 Blood Pressure 174/88 H Blood Pressure [Right Arm] Blood Pressure Mean 116 Blood Pressure Mean [Right Arm] Blood Pressure Position Semi-fowlers Pulse Oximetry 97 96 Oxygen Delivery Method Room Air Room Air Sepsis Recent Fever Within 48 Hours No Sepsis New/Unexplained Change in Mental Status No Sepsis Action Taken by Nursing No Action Required 06/17/25 19:00 06/17/25 19:03 06/17/25 20:00 Temperature Temperature Source Pulse Rate 100 H 86 Pulse Rate [Apical] 98 H Pulse Rate from SpO2 Sensor 102 H 87 Respiratory Rate 16 27 H 12 Blood Pressure 152/86 H Blood Pressure [Right Arm] 152/86 H Blood Pressure Mean 108 Blood Pressure Mean [Right Arm] 108 Blood Pressure Position Pulse Oximetry 97 99 96 Oxygen Delivery Method Sepsis Recent Fever Within 48 Hours Sepsis New/Unexplained Change in Mental Status Sepsis Action Taken by Nursing 06/17/25 20:30 06/17/25 20:45 06/17/25 21:00 Temperature Temperature Source Pulse Rate 110 H 100 H 94 H Pulse Rate [Apical] Pulse Rate from SpO2 Sensor 110 H 99 H Respiratory Rate 21 17 14 Blood Pressure 140/83 134/75 Blood Pressure [Right Arm] Blood Pressure Mean 102 94 Blood Pressure Mean [Right Arm] Blood Pressure Position Pulse Oximetry 99 98 Oxygen Delivery Method Sepsis Recent Fever Within 48 Hours Sepsis New/Unexplained Change in Mental Status Sepsis Action Taken by Nursing 06/17/25 21:30 06/17/25 22:01 06/17/25 22:25 Temperature Temperature Source Pulse Rate 102 H 90 Pulse Rate [Apical] Pulse Rate from SpO2 Sensor 104 H Respiratory Rate 14 22 Blood Pressure 155/96 H 141/78 H Blood Pressure [Right Arm] Blood Pressure Mean 114 92 Blood Pressure Mean [Right Arm] Blood Pressure Position Pulse Oximetry 96 98 Oxygen Delivery Method Sepsis Recent Fever Within 48 Hours Sepsis New/Unexplained Change in Mental Status Sepsis Action Taken by Nursing 06/17/25 22:30 06/17/25 22:52 Temperature Temperature Source Pulse Rate 81 89 Pulse Rate [Apical] Pulse Rate from SpO2 Sensor Respiratory Rate 23 16 Blood Pressure 123/93 123/93 Blood Pressure [Right Arm] Blood Pressure Mean 103 Blood Pressure Mean [Right Arm] Blood Pressure Position Pulse Oximetry 96 Oxygen Delivery Method Room Air Sepsis Recent Fever Within 48 Hours Sepsis New/Unexplained Change in Mental Status Sepsis Action Taken by Nursing Laboratory Data 06/17/25 16:50 06/17/25 16:50 Lab Results 06/17/25 06/17/25 06/17/25 Range/Units 16:50 17:56 17:56 WBC 10.00 (4.8-10.8) K/ul RBC 1.99 L (4.70-6.10) M/uL Hgb 6.9 L* (14.0-18.0) g/dl Hct 20.7 L* (42.0-52.0) % MCV 104.0 H (80.0-100.0) fL MCH 34.7 H (25.0-34.0) pg MCHC 33.3 (32.0-36.0) g/dL RDW Std Deviation 84.3 H (36.4-46.3) fL RDW Coeff of Natali 24.5 H (11.5-14.5) % Plt Count 154 (130-400) K/uL MPV 8.9 L (9.4-12.4) fL Immature Gran % (Auto) 4.7 % Neut % (Auto) 86.7 % Lymph % (Auto) 5.0 % Rutherford % (Auto) 3.3 % Eos % (Auto) 0.1 % Baso % (Auto) 0.2 % Reticulocyte % (Auto) (0.50-2.00) % Neut # (Auto) 8.67 H (1.40-6.50) K/uL Lymph # (Auto) 0.50 L (1.20-3.40) K/uL [place] # (Auto) 0.33 (0.11-0.59) K/uL Eos # (Auto) 0.01 (0.00-0.50) K/uL Baso # (Auto) 0.02 (0.00-0.20) K/uL Reticulocyte # (0.020-0.100) 10^6/uL Immature Gran # (Auto) 0.47 H (0.01-0.20) K/uL Absolute Nucleated RBC 0.18 H (0.00-0.12) K/uL Nucleated RBC % (auto) 1.8 % Polychromasia 2+ Anisocytosis Present PT Cancelled INR Cancelled APTT Cancelled PTT Ratio Cancelled Sodium 138 (136-145) mmol/L Potassium 3.9 (3.5-5.1) mmol/L Chloride 105 (98-107) mmol/L Carbon Dioxide 25 (21-32) mmol/L Anion Gap 8 (3-11) BUN 24 H (6-23) mg/dl Creatinine 0.55 L (0.6-1.4) mg/dl Est Cr Clr Drug Dosing 313.3 ml/min eGFR 138.44 BUN/Creatinine Ratio 43.6 H (10-20) Glucose 134 H (70-99(Fasting)) mg/dl Calcium 8.7 (8.6-10.3) mg/dl Total Bilirubin 3.1 H (0.2-1.0) mg/dl AST 46 H (13-39) U/L ALT 163 H (7-52) U/L Alkaline Phosphatase 89 (34-104) U/L Lactate Dehydrogenase (86-244) U/L Troponin I High Sens (0-20) pg/ml Total Protein 6.8 (6.0-8.3) gm/dl Albumin 3.9 (3.4-5.0) gm/dl Globulin 2.9 (2.5-4.0) gm/dl Albumin/Globulin Ratio 1.3 (0.9-2) Adenovirus (PCR) (NotDetected) B. pertussis DNA (PCR) (NotDetected) B.parapertussis DNA PCR (NotDetected) C. pneumoniae DNA (PCR) (NotDetected) Coronavirus OC43 (PCR) (NotDetected) Coronavirus HKU1 (PCR) (NotDetected) Coronavirus 229E (PCR) (NotDetected) SARS-CoV-2 (PCR) (NotDetected) Coronavirus NL63 (PCR) (NotDetected) Human Metapneumovir PCR (NotDetected) Influenza Type A (PCR) (NotDetected) Influenza Type B (PCR) (NotDetected) M. pneumoniae (PCR) (NotDetected) Parainfluenza 1 (PCR) (NotDetected) Parainfluenza 2 (PCR) (NotDetected) Parainfluenza 3 (PCR) (NotDetected) Parainfluenza 4 (PCR) (NotDetected) RSV (PCR) (NotDetected) Entero/Rhino (PCR) (NotDetected) Blood Type Cancelled B Positive Antibody Screen Cancelled Crossmatch 06/17/25 06/17/25 06/17/25 Range/Units 17:56 17:58 Unknown WBC (4.8-10.8) K/ul RBC (4.70-6.10) M/uL Hgb (14.0-18.0) g/dl Hct (42.0-52.0) % MCV (80.0-100.0) fL MCH (25.0-34.0) pg MCHC (32.0-36.0) g/dL RDW Std Deviation (36.4-46.3) fL RDW Coeff of Natali (11.5-14.5) % Plt Count (130-400) K/uL MPV (9.4-12.4) fL Immature Gran % (Auto) % Neut % (Auto) % Lymph % (Auto) % [place] % (Auto) % Eos % (Auto) % Baso % (Auto) % Reticulocyte % (Auto) 19.17 H (0.50-2.00) % Neut # (Auto) (1.40-6.50) K/uL Lymph # (Auto) (1.20-3.40) K/uL [place] # (Auto) (0.11-0.59) K/uL Eos # (Auto) (0.00-0.50) K/uL Baso # (Auto) (0.00-0.20) K/uL Reticulocyte # 0.350 H (0.020-0.100) 10^6/uL Immature Gran # (Auto) (0.01-0.20) K/uL Absolute Nucleated RBC (0.00-0.12) K/uL Nucleated RBC % (auto) % Polychromasia Anisocytosis PT 10.2 INR 1.0 APTT 22 PTT Ratio 0.8 Sodium (136-145) mmol/L Potassium (3.5-5.1) mmol/L Chloride (98-107) mmol/L Carbon Dioxide (21-32) mmol/L Anion Gap (3-11) BUN (6-23) mg/dl Creatinine (0.6-1.4) mg/dl Est Cr Clr Drug Dosing ml/min eGFR BUN/Creatinine Ratio (10-20) Glucose (70-99(Fasting)) mg/dl Calcium (8.6-10.3) mg/dl Total Bilirubin (0.2-1.0) mg/dl AST (13-39) U/L ALT (7-52) U/L Alkaline Phosphatase (34-104) U/L Lactate Dehydrogenase 380 H (86-244) U/L Troponin I High Sens 5.4 (0-20) pg/ml Total Protein (6.0-8.3) gm/dl Albumin (3.4-5.0) gm/dl Globulin (2.5-4.0) gm/dl Albumin/Globulin Ratio (0.9-2) Adenovirus (PCR) Not Detected (NotDetected) B. pertussis DNA (PCR) Not Detected (NotDetected) B.parapertussis DNA PCR Not Detected (NotDetected) C. pneumoniae DNA (PCR) Not Detected (NotDetected) Coronavirus OC43 (PCR) Not Detected (NotDetected) Coronavirus HKU1 (PCR) Not Detected (NotDetected) Coronavirus 229E (PCR) Not Detected (NotDetected) SARS-CoV-2 (PCR) Not Detected (NotDetected) Coronavirus NL63 (PCR) Not Detected (NotDetected) Human Metapneumovir PCR Not Detected (NotDetected) Influenza Type A (PCR) Not Detected (NotDetected) Influenza Type B (PCR) Not Detected (NotDetected) M. pneumoniae (PCR) Not Detected (NotDetected) Parainfluenza 1 (PCR) Not Detected (NotDetected) Parainfluenza 2 (PCR) Not Detected (NotDetected) Parainfluenza 3 (PCR) Not Detected (NotDetected) Parainfluenza 4 (PCR) Not Detected (NotDetected) RSV (PCR) Not Detected (NotDetected) Entero/Rhino (PCR) Not Detected (NotDetected) Blood Type Antibody Screen POSITIVE A Crossmatch See Detail Administered Medications Immune Globulin (Octagam 10%) 200 mls @ 66 mls/hr IV TODAY@2014,2044,2115,2145,2215 [facility]; Protocol Stop: 06/18/25 05:00 Last Admin: 06/17/25 22:23 Dose: 6.06 mg/kg/min, 400 mls/hr Documented By: NRTerri Titration: 06/17/25 22:06 Dose: Infused Documented By: Admin: 06/17/25 21:46 Dose: Not Given Documented By: Titration: 06/17/25 21:46 Dose: 3.03 mg/kg/min, 200 mls/hr Documented By: Admin: 06/17/25 21:18 Dose: Not Given Documented By: Titration: 06/17/25 21:16 Dose: 3.03 mg/kg/min, 200 mls/hr Documented By: Admin: 06/17/25 20:46 Dose: Not Given Documented By: Admin: 06/17/25 20:42 Dose: 1 mg/kg/min, 66 mls/hr Documented By: BIB Discontinued Medications Duloxetine HCl (Duloxetine Hcl 30 Mg Cap) 90 mg PO ONCE ONE Stop: 06/17/25 20:46 Last Admin: 06/17/25 21:15 Dose: 90 mg Documented By: BIB Immune Globulin (Immune Globulin (Human) Soln ) 1 each IV NOW ONE Stop: 06/17/25 19:42 Last Admin: 06/17/25 21:06 Dose: Not Given Documented By: BIB Imaging Data Radiologist's Impression: Chest X-Ray 06/17/25 15:13 Clinical History: Dyspnea Technique: A frontal view of the chest was obtained Comparison is made to the prior examination dated 05/22/2025 Findings: There are no confluent pulmonary infiltrates. The heart size is within normal limits. No pleural effusion or pneumothorax is seen. There is no definite pulmonary nodule. No fracture is noted. No foreign body is seen Impression: No active disease Electronically signed by Aurelio Chua 06-17-2025 4:46 PM Discharge Plan Visit Data Chief Complaint: Shortness of Breath/Dyspnea Stated Complaint: ANEMIA, TACHY, DIZZY, EXHAUSTION SOB ED Provider: Grady Butler Discharge Problem: Warm autoimmune hemolytic anemia, Tachycardia Patient Disposition: Admitted As Inpatient Condition: Fair Discharge Instructions Interventions: ED Discharge Assessment Last Done: 06/17/25 22:52 Forms Stand Alone Forms: [facility] Prescriptions Prescriptions: No Action duloxetine 30 mg capsule,delayed release(DR/EC) 30 mg PO HS Rx Instructions: Take w/ 60mg to equal 90mg at bedtime. duloxetine 60 mg capsule,delayed release(DR/EC) 60 mg PO HS Rx Instructions: Take w/ 30mg to equal 90mg at bedtime. 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
[2025-06-17] MEDS ORDERED: SODIUM CHLORIDE 0.9% 100 ML IV PRN (17:43)
[2025-06-17 19:21] LABS: INR 1.0 (0.9-1.1); Partial Thromboplastin Time 22 Seconds (21-31); Prothrombin Time 10.2 Seconds (9.0-12.0)
[2025-06-17 20:10] LABS: Reticulocytes # 0.350 10^6/uL (0.020-0.100)
[2025-06-17] MEDS: Octagam 10% IVIG 20 gram bottle IV SCH ×2 (20:42→23:36)
--- NOTE | 2025-06-17 20:56 | History & Physical Report ---
Date of Service June 17, 2025 Assessment & Plan (1) Warm autoimmune hemolytic anemia: (2) Symptomatic anemia: (3) Metabolic dysfunction-associated steatotic liver disease (MASLD): (4) Tachycardia: Plan The patient is a 30-year-old male with a past medical history including warm a utoimmune hemolytic anemia, MASLDmetabolic dysfunction associated steatotic liver disease, GERD, multinodular thyroid, JEFFREY, major depressive disorder recurrent, vitamin D deficiency, and morbid obesity. The patient was referred to the emergency department from [facility] due to the development of generalized fatigue, dyspnea on exertion, worsening over the last several days. He has a history of warm autoimmune hemolytic anemia, and has been admitted to [facility] from 05/15-05/20/2025, and 05/30-06/03/2025. During admission from 05/15-05/16, he was started on Solu-Medrol 1000 mg IV, and IVIG 500 mg/kg. He felt improved, and was discharged at that point. He developed recurrent symptoms, and was again admitted from 05/30-. He was started on rituximab, and is to receive his third dose on 06/18/2025. He is presently off prednisone, and was recently tapered from 60 mg p.o. twice daily to 60 mg p.o. every morning. Abnormal laboratories include the following: Hemoglobin 6.9, hematocrit 20.7, glucose 134, total bilirubin 3.1, AST 46, ALT 163, LDH 380, and respiratory bio fire test was negative. Patient does have a history of MASLD, and liver enzymes are about his average position. 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 He has more recently been determined to be steroid resistant, and thus started on rituximab. He is status post bone marrow biopsy on 06/03/2025, with results not yet available. Symptomatic anemia/warm autoimmune hemolytic anemia- Hemoglobin 6.9 and hematocrit 20.7 on admission Last normal recorded hemoglobin was on 02/13/2023 at 14.1. Since his admission from 05/15-05/20, his hemoglobin was at its lowest 5.7, and after 3 units PRBCs, he was discharged with a hemoglobin of 7.8. Hemoglobin on 06/08 was 9.1 after additional transfusions. Since that time, gradually decreased again, to the point of 6.9 on admission this evening. Request for blood has been ordered by the emergency department, with antibody test pending. Patient is mildly tachycardic, has a normal range blood pressure, and has few symptoms as long as he is lying still. Hematology has requested patient be admitted to the [facility] hospitalist service, and to receive IVIG 1 g/kg in the ED, without accompanying IV dexamethasone at this time. Will continue patient's prednisone 60 mg p.o. every morning, again noting that he had been recently tapered from 60 mg twice daily to 60 mg every morning. Follow serial laboratories every morning Continue folic acid Patient was to receive his third dose of rituximab on 06/18/2025 Bone marrow biopsy performed on 06/03/2025, with results currently unavailable Consulting hematology oncology JEFFREY/major depressive disorder, recurrent, severe without psychotic features- Continue duloxetine, and trazodone MASLD-metabolic dysfunction associated steatotic liver disease- Liver enzymes are mildly elevated, but in his usual baseline range. History of Present Illness Chief Complaint: The patient was referred to the emergency department from cancer center due to the development of generalized fatigue, dyspnea on exertion, worsening over the last several days. He has a history of warm autoimmune hemolytic anemia, and has been admitted to [facility] from 05/15-05/20/2025, and 05/30-06/03/2025. During admission from 05/15-05/16, he was started on Solu-Medrol 1000 mg IV, and IVIG 500 mg/kg. He felt improved, and was discharged at that point. He developed recurrent symptoms, and was again admitted from 05/30- He was started on rituximab, and is to receive his third dose on 06/18/2025. He is presently off prednisone, and was recently tapered from 60 mg p.o. twice daily to 60 mg p.o. every morning. Abnormal laboratories include the following: H emoglobin 6.9, hematocrit 20.7, glucose 134, total bilirubin 3.1, AST 46, ALT 163, LDH 380, and respiratory bio fire test was negative. Patient does have a history of MASLD, and liver enzymes are about his average position. Primary Care Provider: David Castro PA-C The patient is a 30-year-old male with a past medical history including warm autoimmune hemolytic anemia, MASLDmetabolic dysfunction associated steatotic liver disease, GERD, multinodular thyroid, JEFFREY, major depressive disorder recurrent, vitamin D deficiency, and morbid obesity. The patient was referred to the emergency department from cancer center due to the development of generalized fatigue, dyspnea on exertion, worsening over the last several days. He has a history of warm autoimmune hemolytic anemia, and has been admitted to [facility] from 05/15-05/20/2025, and 05/30-06/03/2025. During admission from 05/15-05/16, he was started on Solu-Medrol 1000 mg IV, and IVIG 500 mg/kg. He felt improved, and was discharged at that point. He developed recurrent symptoms, and was again admitted from 05/30- He was started on rituximab, and is to re ceive his third dose on 06/18/2025. He is presently off prednisone, and was recently tapered from 60 mg p.o. twice daily to 60 mg p.o. every morning. Abnormal laboratories include the following: Hemoglobin 6.9, hematocrit 20.7, glucose 134, total bilirubin 3.1, AST 46, ALT 163, LDH 380, and respiratory bio fire test was negative. Patient does have a history of MASLD, and liver enzymes are about his average position. Allergies Allergy/AdvReac Type Severity Reaction Status Date / Time No Known Allergies Allergy Verified 06/17/25 20:23 Home Medications Medication Instructions Recorded Confirmed Type duloxetine 30 mg capsule,delayed 30 mg PO HS 05/15/25 06/17/25 History release duloxetine 60 mg capsule,delayed 60 mg PO HS 05/15/25 06/17/25 History release folic acid 1 mg tablet 1 mg PO DAILY #30 tabs 05/20/25 06/17/25 Rx inulin-sorbitol 2 gram chewable 1 tab PO DAILY 05/30/25 06/17/25 History tablet (Fiber Supplement (inulin)) trazodone 100 mg tablet 100 mg PO HS 05/30/25 06/17/25 History ondansetron 8 mg disintegrating 8 mg PO Q8H PRN NAUSEA/VOMITING 06/17/25 06/17/25 History tablet prednisone 20 mg tablet 60 mg PO DAILY 06/17/25 06/17/25 History prochlorperazine maleate 10 mg 10 mg PO Q6H PRN NAUSEA/VOMITING 06/17/25 06/17/25 History tablet Past Med/Surg History Problem List (Updated 06/17/25 @ 23:11 by Grady Butler M.D.) Tachycardia (Acute) Acute dehydration (Acute) External bleeding hemorrhoids (Acute) Symptomatic anemia (Acute) Warm autoimmune hemolytic anemia (Acute) Metabolic dysfunction-associated steatotic liver disease (MASLD) (Acute) Transaminasemia (Acute) Warm autoimmune hemolytic anemia GERD (gastroesophageal reflux disease) (Chronic) Multinodular thyroid (Chronic) JEFFREY (generalized anxiety disorder) (Chronic) Major depressive disorder, recurrent, severe without psychotic features (Chronic) Vitamin D deficiency (Chronic) Medical History Suicidal ideations Depression Idiopathic thrombocytopenic purpura (03/29/11) Surgical History Hx of removal of cyst Posterior to ear. Social History Smoking Status: Never smoker Second Hand Exposure: No; Do You Dip or Chew Tobacco: No; Hx Alcohol Use: Yes Alcohol type: beer Hx Substance Use: Yes Last Used Substance: Unknown Last Used Substance Other:: last night Preferred Language: Divehi Communication Ability: Effective Wharf Operator Required: No Beliefs That Will Affect Care: None Current Living Situation: Alone Current Living Situation Comment: Pt. lives in apartment alone Other Information That Helps Us Care for You: No Feels Safe at Home: Yes Safety Concerns: Feels Safe At This Time Gender Identity: Nonbinary Assistive Devices: None Review of Systems Review of Systems: The patient denies chest pain, palpitations, shortness of breath, dyspnea on exertion, cough, lower extremity swelling, sore throat, fevers, chills, sweats, nausea, vomiting, diarrhea , constipation, abdominal pain, pelvic pain, blood in urine or stool, dysuria, urinary frequency or urgency, lightheadedness, dizziness, headache, memory loss, loss of consciousness, rash, imbalance, focal weakness, numbness or tingling in arms or legs, generalized arthralgias or myalgias, back or neck pain, or night sweats. The review of systems is otherwise negative other than for that already noted above, and at least 10 systems have been reviewed. Physical Exam Physical Exam: The patient is awake, alert and oriented 3, well developed and well nourished, normocephalic and atraumatic, lying in bed and in no acute distress. HEENT--PERRL, EOMI, mucous membranes and oropharynx mildly dry. Neck--supple. No JVD. No bruits. Thyroid normal, trachea midline, no adenopathy. Heart--normal S1 and S2. No murmurs, rubs or gallops. Lungs--clear bilaterally, no respiratory distress, no accessory muscle use. Abdomen--normal bowel sounds and soft. Nontender. Nondistended. Morbidly obese Extremities--No edema. There are good distal pulses b/l. Dermatologic--normal skin turgor, normal color, no abnormal lymph nodes, no rash. Neurologic--cranial nerves II through XII grossly intact. Rheumatologic--normal range of motion, but limited by body habitus Psychiatric--normal affect. Results & Data Results & Data Vital Signs (Past 12 Hours) Vital Signs Temp Pulse Pulse Resp BP BP Pulse Ox 06/17/25 19:00 98 H 16 152/86 H 97 06/17/25 18:50 104 H 06/17/25 17:13 96 06/17/25 15:08 36.1 C L 118 H 18 174/88 H 97 O2 Del Method 06/17/25 19:00 06/17/25 18:50 06/17/25 17:13 Room Air 06/17/25 15:08 Room Air Laboratory Results Laboratory Results WBC 10.00 K/ul (4.8-10.8) 06/17/25 16:50 RBC 1.99 M/uL (4.70-6.10) L 06/17/25 16:50 Hgb 6.9 g/dl (14.0-18.0) L* 06/17/25 16:50 Hct 20.7 % (42.0-52.0) L* 06/17/25 16:50 MCV 104.0 fL (80.0-100.0) H 06/17/25 16:50 MCH 34.7 pg (25.0-34.0) H 06/17/25 16:50 MCHC 33.3 g/dL (32.0-36.0) 06/17/25 16:50 RDW Std Deviation 84.3 fL (36.4-46.3) H 06/17/25 16:50 RDW Coeff of Natali 24.5 % (11.5-14.5) H 06/17/25 16:50 Plt Count 154 K/uL (130-400) 06/17/25 16:50 MPV 8.9 fL (9.4-12.4) L 06/17/25 16:50 Immature Gran % (Auto) 4.7 % 06/17/25 16:50 Neut % (Auto) 86.7 % 06/17/25 16:50 Lymph % (Auto) 5.0 % 06/17/25 16:50 [place]haw % (Auto) 3.3 % 06/17/25 16:50 Eos % (Auto) 0.1 % 06/17/25 16:50 Baso % (Auto) 0.2 % 06/17/25 16:50 Reticulocyte % (Auto) 19.17 % (0.50-2.00) H 06/17/25 17:58 Neut # (Auto) 8.67 K/uL (1.40-6.50) H 06/17/25 16:50 Lymph # (Auto) 0.50 K/uL (1.20-3.40) L 06/17/25 16:50 [place]ershaw # (Auto) 0.33 K/uL (0.11-0.59) 06/17/25 16:50 Eos # (Auto) 0.01 K/uL (0.00-0.50) 06/17/25 16:50 Baso # (Auto) 0.02 K/uL (0.00-0.20) 06/17/25 16:50 Reticulocyte # 0.350 10^6/uL (0.020-0.100) H 06/17/25 17:58 Immature Gran # (Auto) 0.47 K/uL (0.01-0.20) H 06/17/25 16:50 Absolute Nucleated RBC 0.18 K/uL (0.00-0.12) H 06/17/25 16:50 Nucleated RBC % (auto) 1.8 % 06/17/25 16:50 Polychromasia 2+ 06/17/25 16:50 Anisocytosis Present 06/17/25 16:50 PT 10.2 Seconds (9.0-12.0) 06/17/25 17:58 INR 1.0 (0.9-1.1) 06/17/25 17:58 APTT 22 Seconds (21-31) 06/17/25 17:58 PTT Ratio 0.8 06/17/25 17:58 Sodium 138 mmol/L (136-145) 06/17/25 16:50 Potassium 3.9 mmol/L (3.5-5.1) 06/17/25 16:50 Chloride 105 mmol/L (98-107) 06/17/25 16:50 Carbon Dioxide 25 mmol/L (21-32) 06/17/25 16:50 Anion Gap 8 (3-11) 06/17/25 16:50 BUN 24 mg/dl (6-23) H 06/17/25 16:50 Creatinine 0.55 mg/dl (0.6-1.4) L 06/17/25 16:50 Est Cr Clr Drug Dosing 313.3 ml/min 06/17/25 16:50 eGFR 138.44 06/17/25 16:50 BUN/Creatinine Ratio 43.6 (10-20) H 06/17/25 16:50 Glucose 134 mg/dl (70-99(Fasting)) H 06/17/25 16:50 Calcium 8.7 mg/dl (8.6-10.3) 06/17/25 16:50 Total Bilirubin 3.1 mg/dl (0.2-1.0) H 06/17/25 16:50 AST 46 U/L (13-39) H 06/17/25 16:50 ALT 163 U/L (7-52) H 06/17/25 16:50 Alkaline Phosphatase 89 U/L (34-104) 06/17/25 16:50 Lactate Dehydrogenase 380 U/L (86-244) H 06/17/25 17:58 Troponin I High Sens 5.4 pg/ml (0-20) 06/17/25 17:58 Total Protein 6.8 gm/dl (6.0-8.3) 06/17/25 16:50 Albumin 3.9 gm/dl (3.4-5.0) 06/17/25 16:50 Globulin 2.9 gm/dl (2.5-4.0) 06/17/25 16:50 Albumin/Globulin Ratio 1.3 (0.9-2) 06/17/25 16:50 Adenovirus (PCR) Not Detected (NotDetected) 06/17/25 Unknown B. pertussis DNA (PCR) Not Detected (NotDetected) 06/17/25 Unknown B.parapertussis DNA PCR Not Detected (NotDetected) 06/17/25 Unknown C. pneumoniae DNA (PCR) Not Detected (NotDetected) 06/17/25 Unknown Coronavirus OC43 (PCR) Not Detected (NotDetected) 06/17/25 Unknown Coronavirus HKU1 (PCR) Not Detected (NotDetected) 06/17/25 Unknown Coronavirus 229E (PCR) Not Detected (NotDetected) 06/17/25 Unknown SARS-CoV-2 (PCR) Not Detected (NotDetected) 06/17/25 Unknown Coronavirus NL63 (PCR) Not Detected (NotDetected) 06/17/25 Unknown Human Metapneumovir PCR Not Detected (NotDetected) 06/17/25 Unknown Influenza Type A (PCR) Not Detected (NotDetected) 06/17/25 Unknown Influenza Type B (PCR) Not Detected (NotDetected) 06/17/25 Unknown M. pneumoniae (PCR) Not Detected (NotDetected) 06/17/25 Unknown Parainfluenza 1 (PCR) Not Detected (NotDetected) 06/17/25 Unknown Parainfluenza 2 (PCR) Not Detected (NotDetected) 06/17/25 Unknown Parainfluenza 3 (PCR) Not Detected (NotDetected) 06/17/25 Unknown Parainfluenza 4 (PCR) Not Detected (NotDetected) 06/17/25 Unknown RSV (PCR) Not Detected (NotDetected) 06/17/25 Unknown Entero/Rhino (PCR) Not Detected (NotDetected) 06/17/25 Unknown Blood Type B Positive 06/17/25 17:56 Blood Type Cancelled 06/17/25 17:56 Antibody Screen Cancelled 06/17/25 17:56 Antibody Screen POSITIVE A 06/17/25 17:56 Crossmatch See Detail 06/17/25 17:56 Impressions Chest X-Ray 06/17/25 15:13 Clinical History: Dyspnea Technique: A frontal view of the chest was obtained Comparison is made to the prior examination dated 05/22/2025 Findings: There are no confluent pulmonary infiltrates. The heart size is within normal limits. No pleural effusion or pneumothorax is seen. There is no definite pulmonary nodule. No fracture is noted. No foreign body is seen Impression: No active disease Electronically signed by Aurelio Chua 06-17-2025 4:46 PM Code Status & VTE Plan Code Status Full code VTE Prophylaxis Plan VTE Prophylaxis will be ordered: Yes PG Care Time/CCT Total # of Minutes Spent Total Time Spent with Patient: Total time spent is greater than 50% in coordination of care (as documented) at patient's floor/unit and/or counseling patient: Coding Level of Care Code 13693 INT INP/OBS CARE 3/75MIN Diagnoses Warm autoimmune hemolytic anemia D59.11 Symptomatic anemia D64.9 Metabolic dysfunction-associated steatotic liver disease (MASLD) K76.0 Tachycardia R00.0
[2025-06-17] MEDS: IMMUNE GLOBULIN (HUMAN) SOLN IV ONE (21:06)
[2025-06-17 22:03] LABS: Chlamydia pneumoniae PCR Not Detected (NotDetected); Coronavirus 229E PCR Not Detected (NotDetected); Coronavirus CoV-2 (COVID19)PCR Not Detected (NotDetected); Coronavirus HKU1 PCR Not Detected (NotDetected); Coronavirus NL63 PCR Not Detected (NotDetected); Coronavirus OC43PCR Not Detected (NotDetected); Human Metapneumovirus PCR Not Detected (NotDetected); Parainfluenza Virus 1 PCR Not Detected (NotDetected); Parainfluenza Virus 2 PCR Not Detected (NotDetected); Parainfluenza Virus 3 PCR Not Detected (NotDetected); Parainfluenza Virus 4 PCR Not Detected (NotDetected); Respiratory Syncytial VirusPCR Not Detected (NotDetected); Rhinovirus/Enterovirus PCR Not Detected (NotDetected)
[2025-06-17] MEDS ORDERED: PROCHLORPERAZINE MALEATE 10 MG TAB PO PRN (23:17)
[2025-06-17] MEDS ORDERED: ONDANSETRON 8MG OD TAB PO PRN (23:17)
[2025-06-18 06:48] LABS: Hematocrit (blood only) 17.0 % (42.0-52.0); Hemoglobin 5.2 g/dl (14.0-18.0); Mean Corpuscular Hemoglobin 33.3 pg (25.0-34.0); Mean Corpuscular Volume 109.0 fL (80.0-100.0); Platelet Count 117 K/uL (130-400); RDW Standard Deviation 93.9 fL (36.4-46.3); Red Blood Count 1.56 M/uL (4.70-6.10); White Blood Count 5.88 K/ul (4.8-10.8)
[2025-06-18 07:07] LABS: Anisocytosis Present; Basophilic Stippling 1+; Immature Granulocytes # (auto) 0.28 K/uL (0.01-0.20); Immature Granulocytes % (auto) 4.8 %; Polychromasia 2+
[2025-06-18 07:10] LABS: INR 1.0 (0.9-1.1); Partial Thromboplastin Time 22 Seconds (21-31); Prothrombin Time 10.7 Seconds (9.0-12.0)
[2025-06-18 07:21] LABS: Alanine Aminotransferase 119.0 U/L (7-52); Albumin Globulin Ratio 0.8 (0.9-2); Albumin Level 3.1 gm/dl (3.4-5.0); Alkaline Phosphatase 58.0 U/L (34-104); Anion Gap 3.0 (3-11); Bilirubin,Total 1.4 mg/dl (0.2-1.0); Blood Urea Nitrogen 15.0 mg/dl (6-23); Calcium 8.3 mg/dl (8.6-10.3); Carbon Dioxide 29.0 mmol/L (21-32); Chloride 106.0 mmol/L (98-107); Creatinine Clr Calc Pharmacy 315.0 ml/min; Globulin 3.9 gm/dl (2.5-4.0); Glucose 111.0 mg/dl (70-99(Fasting)); Magnesium 2.0 mg/dl (1.7-2.4); Potassium 3.5 mmol/L (3.5-5.1); Sodium 138.0 mmol/L (136-145); Total Protein 7.0 gm/dl (6.0-8.3)
[2025-06-18] MEDS ORDERED: SODIUM CHLORIDE 0.9% 100 ML IV PRN ×2 (08:53→14:11)
[2025-06-18] MEDS ORDERED: methylPREDNISolone 10 mg/mL (For Ped Dose < 7mg) IV SCH (09:00)
[2025-06-18] MEDS: predniSONE 20 MG TAB PO SCH (09:10)
[2025-06-18] MEDS: FOLIC ACID 1 MG TAB PO SCH (09:11)
[2025-06-18] MEDS: CALCIUM POLYCARBOPHIL 625MG TAB PO SCH (09:11)
[2025-06-18] MEDS: ACETAMINOPHEN 325 MG TAB PO PRN (09:42)
[2025-06-18] MEDS: methylPREDNISolone 1,000 MG in NSS 250 ML IV SCH (09:43)
[2025-06-18] MEDS: Octagam 10% IVIG 10 gram bottle IV SCH (11:11)
--- NOTE | 2025-06-18 12:29 | Hospitalist Progress Note ---
Date of Service June 18, 2025 Assessment & Plan (1) Warm autoimmune hemolytic anemia: (2) Symptomatic anemia: (3) Metabolic dysfunction-associated steatotic liver disease (MASLD): (4) Tachycardia: Plan The patient is a 30-year-old male with a past medical history including warm autoimmune hemolytic anemia, MASLDmetabolic dysfunction associated steatotic liver disease, GERD, multinodular thyroid, JEFFREY, major depressive disorder recurrent, vitamin D deficiency, and morbid obesity. The patient was referred to the emergency department from cancer center due to the development of generalized fatigue, dyspnea on exertion, worsening over the last several days. He has a history of warm autoimmune hemolytic anemia, and has been admitted to [facility] from 05/15-05/20/2025, and 05/30-06/03/2025. During admission from 05/15-05/16, he was started on Solu-Medrol 1000 mg IV, and IVIG 500 mg/kg. He felt improved, and was discharged at that point. He developed recurrent symptoms, and was again admitted from 05/30-. He was started on rituximab, and is to receive his third dose on 06/18/2025. He is presently off prednisone, and was recently tapered from 60 mg p.o. twice daily to 60 mg p.o. every morning. Abnormal laboratories include the following: Hemoglobin 6.9, hematocrit 20.7, glucose 134, total bilirubin 3.1, AST 46, ALT 163, LDH 380, and respiratory bio fire test was negative. Patient does have a history of MASLD, and liver enzymes are about his average position. 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 He has more recently been determined to be steroid resistant, and thus started on rituximab. He is status post bone marrow biopsy on 06/03/2025, with results not yet available. Symptomatic anemia/warm autoimmune hemolytic anemia- History of warm autoimmune hemolytic anemia, recently titrated from twice daily prednisone 60 mg to daily Hemoglobin 6.9 on admission, down trended to 5.2. Bilirubin is down trended 2 units pending transfusion, due to crossmatch difficulties this has to come from [place] and is anticipated to arrive approximately 11 AM 06/18 2 additional units ordered for hold preemptively due to difficulty in obtaining blood products Reviewed with oncology. Agree with methylprednisolone 1000 mg x 3 days, IVIG 1 mg/kg x 3 days at this time Will trend H&H following 2 units of transfusion Hematology/oncology consulted Patient was due to receive his third dose of rituximab on 06/18/2025, this is held while inpatient Pending bone marrow biopsy results from 06/03/2025 Transfusion threshold 7.0 Platelet count 117 JEFFREY/major depressive disorder, recurrent, severe without psychotic features- - Continue duloxetine, and trazodone MASLD-metabolic dysfunction associated steatotic liver disease- - Liver enzymes are mildly elevated, but in his usual baseline range. Admission and Anticipated Discharge Date Admission Date: June 17, 2025 Subjective Seen at the bedside with his mother present. He endorses feeling more fatigued than yesterday, otherwise no acute concerns peer denies chest pain or chest pressure. Overall just feels tired. Has notable pallor. No shortness of breath at rest but feels easily winded with exertion Physical Exam Physical Exam: General: A&Ox3. NAD. Cooperative. Pallor is present HEENT: Atraumatic, normocephalic. Vision and hearing grossly intact Pulm: CTAB A&P. -wheezes, -rales, -rhonchi. Symmetrical chest rise. No increase in work of breathing. No respiratory distress. Cardiac: Mild tachycardia, regular, -mrg. Radial pulses intact and symmetrical. Abdominal: Nontender, nondistended, soft. BS present. Results & Data Results & Data Vital Signs (Past 12 Hours) Vital Signs Temp Pulse Resp BP BP Pulse Ox O2 Del Method 06/18/25 07:22 36.5 C 98 H 18 132/85 100 Room Air 06/18/25 03:29 36.4 C L 102 H 14 115/63 97 Room Air PG Care Time/CCT Total # of Minutes Spent Total Time Spent with Patient: Total time spent is greater than 50% in coordination of care (as documented) at patient's floor/unit and/or counseling patient: Coding Level of Care Code 75690 SUB INP/OBS CARE 3/50MIN Diagnoses Warm autoimmune hemolytic anemia D59.11 Symptomatic anemia D64.9 Metabolic dysfunction-associated steatotic liver disease (MASLD) K76.0 Tachycardia R00.0
--- NOTE | 2025-06-18 12:36 | Oncology Consultation ---
Date of Consultation June 18, 2025 History of Present Illness Attending Physician: Isael Ramirez MD Allergies Allergy/AdvReac Type Severity Reaction Status Date / Time No Known Allergies Allergy Verified 06/17/25 20:23 Home Medications Medication Instructions Recorded Confirmed Type duloxetine 30 mg capsule,delayed 30 mg PO HS 05/15/25 06/17/25 History release duloxetine 60 mg capsule,delayed 60 mg PO HS 05/15/25 06/17/25 History release folic acid 1 mg tablet 1 mg PO DAILY #30 tabs 05/20/25 06/17/25 Rx inulin-sorbitol 2 gram chewable 1 tab PO DAILY 05/30/25 06/17/25 History tablet (Fiber Supplement (inulin)) trazodone 100 mg tablet 100 mg PO HS 05/30/25 06/17/25 History ondansetron 8 mg disintegrating 8 mg PO Q8H PRN NAUSEA/VOMITING 06/17/25 06/17/25 History tablet prednisone 20 mg tablet 60 mg PO DAILY 06/17/25 06/17/25 History prochlorperazine maleate 10 mg 10 mg PO Q6H PRN NAUSEA/VOMITING 06/17/25 06/17/25 History tablet Patient History Medical History Suicidal ideations Depression Idiopathic thrombocytopenic purpura (03/29/11) Surgical History Hx of removal of cyst Posterior to ear. Social History Smoking Status: Never smoker Second Hand Exposure: No; Do You Dip or Chew Tobacco: No; Hx Alcohol Use: Yes Alcohol type: beer Hx Substance Use: Yes Last Used Substance: Unknown Last Used Substance Other:: last night Preferred Language: Bangladeshi Communication Ability: Effective Venereal Disease Control Head Required: No Beliefs That Will Affect Care: None Current Living Situation: Alone Current Living Situation Comment: Pt. lives in apartment alone Feels Safe at Home: Yes Gender Identity: Nonbinary Assistive Devices: None Results & Data Vital Signs (Past 12 Hours) Vital Signs Temp Pulse Resp BP BP Pulse Ox O2 Del Method 06/18/25 07:22 36.5 C 98 H 18 132/85 100 Room Air 06/18/25 03:29 36.4 C L 102 H 14 115/63 97 Room Air
[2025-06-18] MEDS: Octagam 10% IVIG 20 gram bottle IV SCH (12:40)
--- NOTE | 2025-06-18 13:21 | Electrocardiogram Report ---
Test Reason : Blood Pressure : */* mmHG Vent. Rate : 114 BPM Atrial Rate : 114 BPM P-R Int : 130 ms QRS Dur : 84 ms QT Int : 324 ms P-R-T Axes : 60 1 50 degrees QTcB Int : 446 ms Sinus tachycardia Minimal voltage criteria for LVH, may be normal variant ( R in aVL ) Borderline ECG When compared with ECG of 30-May-2025 11:00, No significant change was found Confirmed by Vadim Pinzon ([id number]) on 06/18/2025 1:21:18 PM Referred By: REFERRED SELF Confirmed By: Vadim Pinzon
[2025-06-18 21:20] LABS: Hematocrit (blood only) 22.9 % (42.0-52.0); Hemoglobin 7.3 g/dl (14.0-18.0)
[2025-06-19 08:12] LABS: Hematocrit (blood only) 25.6 % (42.0-52.0); Hemoglobin 8.1 g/dl (14.0-18.0)
[2025-06-19 08:13] LABS: Hematocrit (blood only) 25.9 % (42.0-52.0); Hemoglobin 8.2 g/dl (14.0-18.0); Mean Corpuscular Hemoglobin 32.5 pg (25.0-34.0); Mean Corpuscular Volume 102.8 fL (80.0-100.0); Platelet Count 112 K/uL (130-400); RDW Standard Deviation 87.9 fL (36.4-46.3); Red Blood Count 2.52 M/uL (4.70-6.10); White Blood Count 6.27 K/ul (4.8-10.8)
[2025-06-19 08:35] LABS: Alanine Aminotransferase 136.0 U/L (7-52); Albumin Globulin Ratio 0.6 (0.9-2); Albumin Level 3.4 gm/dl (3.4-5.0); Alkaline Phosphatase 59.0 U/L (34-104); Anion Gap 5.0 (3-11); Bilirubin,Total 1.2 mg/dl (0.2-1.0); Blood Urea Nitrogen 14.0 mg/dl (6-23); Calcium 8.9 mg/dl (8.6-10.3); Carbon Dioxide 26.0 mmol/L (21-32); Chloride 105.0 mmol/L (98-107); Creatinine Clr Calc Pharmacy 355.7 ml/min; Globulin 5.6 gm/dl (2.5-4.0); Glucose 117.0 mg/dl (70-99(Fasting)); Magnesium 2.2 mg/dl (1.7-2.4); Potassium 4.4 mmol/L (3.5-5.1); Sodium 136.0 mmol/L (136-145); Total Protein 9.0 gm/dl (6.0-8.3)
[2025-06-19 08:37] LABS: Anisocytosis Present; Immature Granulocytes # (auto) 0.32 K/uL (0.01-0.20); Immature Granulocytes % (auto) 5.1 %; Polychromasia 3+; Spherocytes Occasional
[2025-06-19] MEDS ORDERED: IMMUNE GLOBULIN (HUMAN) SOLN IV SCH (09:00)
[2025-06-19 09:02] LABS: INR 1.0 (0.9-1.1); Prothrombin Time 10.7 Seconds (9.0-12.0)
[2025-06-19 09:04] LABS: Partial Thromboplastin Time < 20 Seconds (21-31)
--- NOTE | 2025-06-19 09:49 | Hospitalist Progress Note ---
Date of Service June 19, 2025 Assessment & Plan (1) Warm autoimmune hemolytic anemia: (2) Symptomatic anemia: (3) Metabolic dysfunction-associated steatotic liver disease (MASLD): (4) Tachycardia: Plan The patient is a 30-year-old male with a past medical history including warm autoimmune hemolytic anemia, MASLDmetabolic dysfunction associated steatotic liver disease, GERD, multinodular thyroid, JEFFREY, major depressive disorder recurrent, vitamin D deficiency, and morbid obesity. The patient was referred to the emergency department from [facility] due to the development of generalized fatigue, dyspnea on exertion, worsening over the last several days. He has a history of warm autoimmune hemolytic anemia, and has been admitted to [facility] from 05/15-05/20/2025, and 05/30-06/03/2025. During admission from 05/15-05/16, he was started on Solu-Medrol 1000 mg IV, and IVIG 500 mg/kg. He felt improved, and was discharged at that point. He developed recurrent symptoms, and was again admitted from 05/30-. He was started on rituximab, and is to receive his third dose on 06/18/2025. He is presently off prednisone, and was recently tapered from 60 mg p.o. twice daily to 60 mg p.o. every morning. Abnormal laboratories include the following: Hemoglobin 6.9, hematocrit 20.7, glucose 134, total bilirubin 3.1, AST 46, ALT 163, LDH 380, and respiratory bio fire test was negative. Patient does have a history of MASLD, and liver enzymes are about his average position. 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 He has more recently been determined to be steroid resistant, and thus started on rituximab. He is status post bone marrow biopsy on 06/03/2025, with results not yet available. Symptomatic anemia/warm autoimmune hemolytic anemia- History of warm autoimmune hemolytic anemia, recently titrated from twice daily prednisone 60 mg to daily Hemoglobin 6.9 on admission, down trended to 5.2. Bilirubin is down trended Post units transfusion has had appropriate rise in hemoglobin 7.3, now stable around 8.2 Symptomatically greatly improved 06/19, ambulating independently and asymptomatic. Significant clinical improvement compared to prior Will continue IVIG and 1 g Solu-Medrol 3-day courses today to be complete 06/20. Unable to do these infusions as outpatient over the weekend so we will complete as inpatient CBC daily, BMP daily Bilirubin continues to downtrend consistent with resolving hemolysis JEFFREY/major depressive disorder, recurrent, severe without psychotic features- - Continue duloxetine, and trazodone MASLD-metabolic dysfunction associated steatotic liver disease- - Liver enzymes are mildly elevated, but in his usual baseline range. Admission and Anticipated Discharge Date Admission Date: June 17, 2025 Subjective Seen at the bedside this morning. No reactions to blood transfusion. He feels much better today. He is ambulating independently in the room and his dizziness/lightheadedness have resolved Color is much better No chest pain chest pressure or shortness of breath at time of visit Physical Exam Physical Exam: General: A&Ox3. NAD. Cooperative. HEENT: Atraumatic, normocephalic. Vision and hearing grossly intact Pulm: CTAB A&P. -wheezes, -rales, -rhonchi. Symmetrical chest rise. No increased work of breathing. No respiratory distress. Cardiac: RRR, -mrg. Radial pulses intact and symmetrical. Results & Data Results & Data Vital Signs (Past 12 Hours) Vital Signs Temp Pulse Pulse Resp BP BP Pulse Ox 06/19/25 07:50 36.6 C 92 H 20 147/90 H 92 06/19/25 07:31 63 06/19/25 03:29 36.5 C 84 16 162/74 H 98 06/18/25 23:01 36.9 C 84 16 156/73 H 97 06/18/25 22:23 84 O2 Del Method 06/19/25 07:50 Room Air 06/19/25 07:31 06/19/25 03:29 Room Air 06/18/25 23:01 Room Air 06/18/25 22:23 PG Care Time/CCT Total # of Minutes Spent Total Time Spent with Patient: Total time spent is greater than 50% in coordination of care (as documented) at patient's floor/unit and/or counseling patient: Coding Level of Care Code 78886 SUB INP/OBS CARE 3/50MIN Diagnoses Warm autoimmune hemolytic anemia D59.11 Symptomatic anemia D64.9 Metabolic dysfunction-associated steatotic liver disease (MASLD) K76.0 Tachycardia R00.0
--- NOTE | 2025-06-20 07:32 | Discharge Summary ---
Discharge Summary Date of Service June 20, 2025 Principal Dx & Hospital Course #1 = Principal Diagnosis (1) Warm autoimmune hemolytic anemia: (2) Symptomatic anemia: (3) Metabolic dysfunction-associated steatotic liver disease (MASLD): (4) Tachycardia: Plan The patient is a 30-year-old male with a past medical history including warm autoimmune hemolytic anemia, MASLDmetabolic dysfunction associated steatotic liver disease, GERD, multinodular thyroid, JEFFREY, major depressive disorder recurrent, vitamin D deficiency, and morbid obesity. The patient was referred to the emergency department from [facility] due to the development of generalized fatigue, dyspnea on exertion, worsening over the last several days. He has a history of warm autoimmune hemolytic anemia, and has been admitted to [facility] from 05/15-05/20/2025, and 05/30-06/03/2025. During admission from 05/15-05/16, he was started on Solu-Medrol 1000 mg IV, and IVIG 500 mg/kg. He felt improved, and was discharged at that point. He developed recurrent symptoms, and was again admitted from 05/30- He was started on rituximab, and is to receive his third dose on 06/18/2025. He is presently off prednisone, and was recently tapered from 60 mg p.o. twice daily to 60 mg p.o. every morning. Abnormal laboratories include the following: Hemoglobin 6.9, hematocrit 20.7, glucose 134, total bilirubin 3.1, AST 46, ALT 163, LDH 380, and respiratory bio fire test was negative. Patient does have a history of MASLD, and liver enzymes are about his average position. 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 He has more recently been determined to be steroid resistant, and thus started on rituximab. He is status post bone marrow biopsy on 06/03/2025, with results not yet available. To do as outpatient: 1. Continue prednisone 60 mg twice daily. Very slow taper under guidance of hematology/oncology 2. Labs twice weekly including CMP/CBC. Next labs to be drawn at [facility] 06/22, and then again prior to his Rituxan treatment on 06/24 3. Follow-up with PCP 4. Follow-up with hematology oncology 5. Continue pantoprazole for gastric protection while on high-dose steroid Symptomatic anemia/warm autoimmune hemolytic anemia- History of warm autoimmune hemolytic anemia, recently titrated from twice daily prednisone 60 mg to daily Hemoglobin 6.9 on admission, down trended to 5.2. Bilirubin is down trended Post 2 units transfusion has had appropriate rise in hemoglobin 7.3 then 8.2 Symptomatically greatly improved 06/19, ambulating independently and asymptomatic. Significant clinical improvement compared to prior 3-day course of 1 g Solu-Medrol daily and IVIG 1 g/kg was continued and completed on 06/20. Patient was subsequently discharged and good state of health after this Bilirubin down trended Will need labs at [facility] [place] [facility] with next labs on 06/22. He is set up for his second dose of rituximab as an outpatient on 06/24 with labs to be drawn prior. Return precautions discussed Discharged on prednisone 60 mg twice daily, slow taper given history of rebound. This will be guided by hematology/oncology on follow Of note patient is a difficult crossmatch and required 2 units of blood to be transported from [place] with significant delay. If he is entering hemolytic crisis in the future it is worth crossmatching early and sending for 2 units on hold preemptively - d/w heme before dc, 1u prbc given prior to dc JEFFREY/major depressive disorder, recurrent, severe without psychotic features- - Continue duloxetine, and trazodone MASLD-metabolic dysfunction associated steatotic liver disease- - Liver enzymes are mildly elevated, but in his usual baseline range. Bilirubin down trended and was likely elevated from acute hemolytic crisis Admission HPI Per Admitting Provider The patient is a 30-year-old male with a past medical history including warm autoimmune hemolytic anemia, MASLDmetabolic dysfunction associated steatotic liver disease, GERD, multinodular thyroid, JEFFREY, major depressive disorder recurrent, vitamin D deficiency, and morbid obesity. The patient was referred [facility] the emergency department [facility] due to the development of generalized fatigue, dyspnea on exertion, worsening over the last several days. He has a history of warm autoimmune hemolytic anemia, and has been admitted to [facility] from 05/15-05/20/2025, and 05/30-06/03/2025. During admission from 05/15-05/16, he was started on Solu-Medrol 1000 mg IV, and IVIG 500 mg/kg. He felt improved, and was discharged at that point. He developed recurrent symptoms, and was again admitted from 05/30- He was started on rituximab, and is to receive his third dose on 06/18/2025. He is presently off prednisone, and was recently tapered from 60 mg p.o. twice daily to 60 mg p.o. every morning. Abnormal laboratories include the following: Hemoglobin 6.9, hematocrit 20.7, glucose 134, total bilirubin 3.1, AST 46, ALT 163, LDH 380, and respiratory bio fire test was negative. Patient does have a history of MASLD, and liver enzymes are about his average position. Discharge Exam General: A&Ox3. NAD. Cooperative. HEENT: Atraumatic, normocephalic. Vision and hearing grossly intact Pulm: CTAB A&P. -wheezes, -rales, -rhonchi. Symmetrical chest rise. No increased work of breathing. No respiratory distress. Cardiac: RRR, -mrg. Radial pulses intact and symmetrical. Discharge Plan Discharge Items Patient Disposition: Home - Self-Care Reason For Visit: SYMPTOMATIC AUTOINMUNE HEMOLYTIC ANEMI, MASLD Discharge Diagnosis: Acute symptomatic autoimmune hemolytic anemia Condition on Discharge: Fair Activity: Resume your previous activity Non-emergency contact: Primary Care Provider Call non-emergency contact if: you have any medication questions, your symptoms worsen, your pain is not controlled and your pain is worsening Follow-up/Referrals: David Castro PA-C [Primary Care Provider] - Diet: Regular Addtl Attending Provider Instructions: You are seen in the hospital for an acute hemolytic crisis. He received high- dose steroids with methylprednisolone 1 g daily for 3 days, and IVIG for 3 days. Your blood levels jaswant appropriately after the transfusion of 2 units of blood and were subsequently stable. Please continue take prednisone 60 mg by mouth twice daily. This should be tapered very slowly under the guidance of your weigher and crusher. You should take your first dose of oral prednisone the morning of 06/21/2025. You have been prescribed pantoprazole 20 mg daily for stomach retention while on high-dose steroid treatment. If needed this may be increased to 40 mg, or used with adjunct of famotidine if you develop stomach upset while on prednisone Please get labs (CBC/CMP) drawn at the [place] office on 06/22. Please get a second set of labs drawn prior to your rituximab therapy which has been set up for 06/24. You will need to have labs drawn twice weekly, then spaced out based on the recommendations of your weigher and crusher. If you develop any new or worsening symptoms including fever, chills, sweats, chest pain, chest pressure, difficulty breathing, uncontrolled nausea/vomiting, rash, wheezing, passing out or nearly passing out, bleeding, black/bloody bowel movements, or other new or concerning symptoms please call your primary care physician, or call 911 for re-evaluation in the emergency department if you are very concerned. Pending Studies at Discharge: No Stand-Alone Forms: My [facility] Talkbits, Smoking Cessation Medications and DC Order Prescriptions: New prednisone 20 mg tablet 60 mg PO BID 30 Days Qty: 180 1RF pantoprazole 20 mg tablet,delayed release (DR/EC) 20 mg PO DAILY 42 Days Qty: 42 0RF Continued duloxetine 30 mg capsule,delayed release(DR/EC) 30 mg PO HS Rx Instructions: Take w/ 60mg to equal 90mg at bedtime. duloxetine 60 mg capsule,delayed release(DR/EC) 60 mg PO HS Rx Instructions: Take w/ 30mg to equal 90mg at bedtime. folic acid 1 mg tablet 1 mg PO DAILY Qty: 30 0RF prochlorperazine maleate 10 mg tablet 10 mg PO Q6H PRN (Reason: NAUSEA/VOMITING) ondansetron 8 mg tablet,disintegrating 8 mg PO Q8H PRN (Reason: NAUSEA/VOMITING) prednisone 20 mg tablet 60 mg PO DAILY Rx Instructions: Take 3 tablets (60 mg) twice daily until dosage is down titrated by your weigher and crusher trazodone 100 mg tablet 100 mg PO HS Fiber Supplement (inulin) 2 gram Tablet,Chewable 1 tab PO DAILY Discharge Orders: Discharge Order (Routine); Ordered 06/20/25 Ordered By: Isael Ramirez Admission Data Admit Date/Time: 06/17/25 20:54 Attending Provider: Isael Ramirez Admit Provider: Bolivar Kwan Primary Care Provider: David Castro Other Providers: Bolivar Kwan; Rambo [facility] Stay Data Consultations 06/17/25 19:50 ED Decision to Admit Stat 06/17/25 23:17 Consult Hematology Routine Discharge Instructions Given to Patient (Per Discharging Provider) You are seen in the hospital for an acute hemolytic crisis. He received high- dose steroids with methylprednisolone 1 g daily for 3 days, and IVIG for 3 days. Your blood levels jaswant appropriately after the transfusion of 2 units of blood and were subsequently stable. Please continue take prednisone 60 mg by mouth twice daily. This should be tapered very slowly under the guidance of your weigher and crusher. You should take your first dose of oral prednisone the morning of 06/21/2025. You have been prescribed pantoprazole 20 mg daily for stomach retention while on high-dose steroid treatment. If needed this may be increased to 40 mg, or used with adjunct of famotidine if you develop stomach upset while on prednisone Please get labs (CBC/CMP) drawn at the [place] office on 06/22. Please get a second set of labs drawn prior to your rituximab therapy which has been set up for 06/24. You will need to have labs drawn twice weekly, then spaced out based on the recommendations of your weigher and crusher. If you develop any new or worsening symptoms including fever, chills, sweats, chest pain, chest pressure, difficulty breathing, uncontrolled nausea/vomiting, rash, wheezing, passing out or nearly passing out, bleeding, black/bloody bowel movements, or other new or concerning symptoms please call your primary care physician, or call 911 for re-evaluation in the emergency department if you are very concerned. Total Time Total Time Spent Total Time Spent (In Minutes): Time spend day of discharge 35 minutes including direct patient care, documentation, review of labs and images, and coordination of care. Coding Level of Care Code 13977 INP/OBS DISCH >30 MIN Diagnoses Warm autoimmune hemolytic anemia D59.11 Symptomatic anemia D64.9 Metabolic dysfunction-associated steatotic liver disease (MASLD) K76.0 Tachycardia R00.0
[2025-06-20 08:36] LABS: Hematocrit (blood only) 23.9 % (42.0-52.0); Hemoglobin 7.5 g/dl (14.0-18.0); Immature Granulocytes # (auto) 0.08 K/uL (0.01-0.20); Immature Granulocytes % (auto) 1.3 %; Mean Corpuscular Hemoglobin 32.8 pg (25.0-34.0); Mean Corpuscular Volume 104.4 fL (80.0-100.0); Platelet Count 109 K/uL (130-400); RDW Standard Deviation 94.3 fL (36.4-46.3); Red Blood Count 2.29 M/uL (4.70-6.10); White Blood Count 5.96 K/ul (4.8-10.8)
[2025-06-20 08:44] LABS: Albumin Level 3.0 gm/dl (3.4-5.0); Anion Gap 4.0 (3-11); Bilirubin,Total 0.9 mg/dl (0.2-1.0); Calcium 8.3 mg/dl (8.6-10.3); Carbon Dioxide 26.0 mmol/L (21-32); Chloride 105.0 mmol/L (98-107); Magnesium 2.2 mg/dl (1.7-2.4); Potassium 4.2 mmol/L (3.5-5.1); Sodium 135.0 mmol/L (136-145)
[2025-06-20 08:50] LABS: Alanine Aminotransferase 169.0 U/L (7-52); Albumin Globulin Ratio 0.5 (0.9-2); Alkaline Phosphatase 60.0 U/L (34-104); Blood Urea Nitrogen 19.0 mg/dl (6-23); Creatinine Clr Calc Pharmacy 266.8 ml/min; Globulin 5.7 gm/dl (2.5-4.0); Glucose 146.0 mg/dl (70-99(Fasting)); Total Protein 8.7 gm/dl (6.0-8.3)
[2025-06-20 09:35] LABS: Anisocytosis Present; Polychromasia 3+
[2025-06-20 10:18] LABS: INR 1.0 (0.9-1.1); Prothrombin Time 10.9 Seconds (9.0-12.0)
[2025-06-20 10:20] LABS: Partial Thromboplastin Time < 20 Seconds (21-31)
[2025-06-20] MEDS ORDERED: SODIUM CHLORIDE 0.9% 100 ML IV PRN (10:20)
[2025-06-20 12:50] VITALS: RESP 20
[2025-06-20 15:50] VITALS: TEMP 98.2; O2SAT 96
[2025-06-20 17:12] VITALS: BP 148/80; PULSE 80
== END 2025-06-20 18:08 | disposition home or self-care (01) | DRG 809 ==
LOC: SUATTDRO → ED 14:59 → 2S 20:54